=== PATIENT | female | born 1940 | race Caucasian/White ===

== ENCOUNTER 2016-11-30 18:10 | Inpatient (IN) | payer MEDICARE ==
[~2016-11-30] VITALS: Ht 157.5 cm; Wt 48.6 kg
--- NOTE | ~2016-11-30 | HEMODYNAMI ---
PATIENT:SOPHIA MANNING MEDICAL RECORD: [id number] : 36 LOCATION:[facility] D.[id number] ADMISSION DATE: 12/01/16 Generatedon:12/04/201612:50 Patient name: SOPHIA MANNING Patient #: [id number] SSN: : 1940 Date of study: 12/04/2016 Page: Of Hemodynamic Procedure Report Patient Data Patient Demographics Procedure consent was obtained First Name: SOPHIA Gender: Female Last Name: NIGEL : 1940 [facility] Initial: J Age: 76 year(s) Patient #: [id number] Race: Unknown Additional ID: [id number] Contact details Address: [address] [place] [address] State: [place] City: [facility] [place] Zip code: [address] Past Medical History Allergies Allergen Reaction Date Comments Reported Other allergy 12/03/2016 amoxicillin, PCN Admission Admission Data Admission Date: 12/01/2016 Admission Time: 13:31 Room #: [facility] Lab Results Lab Result Date: 12/04/2016 Lab Result Time: 0:00 Biochemistry Name Units Result Min Max Creatinine mg/dl 1.1 --(--*-)-- 0.6 1.3 CBC Name Units Result Min Max Hemoglobin g/dl 13 -*(----)-- 13.5 17.5 Procedure Procedure Types Cath Procedure PCI Procedure Coronary Stent Initial Miscellaneous Procedures Moderate Sedation up to 15 minutes Procedure Description Procedure Date Procedure Date: 12/04/2016 Procedure Start Time: 12:32 Procedure End Time: 12:46 Procedure Staff Name Function Bev Quiles RT Monitor Bonilla Quinones RT Scrub Reginald Fernandez RN Nurse Darien Handley MD Performing Physician Claudia Kam RT Scrub Procedure Data Cath Procedure Fluoroscopy Diagnostic fluoroscopy Total fluoroscopy Time: 2.9 time: 2.9 min min Diagnostic fluoroscopy Total fluoroscopy dose: 85 dose: 85 mGy mGy Contrast Material Contrast Material Type Amount (ml) Isovue 300 62 Entry Location Entry Primary Successful Side Size Upsize Upsize Entry Closure [place] ccessful Closure Location (Fr) 1 (Fr) 2 (Fr) Remarks Device Remarks Femoral Left 6 Fr Mechanical artery Short Compression Estimated blood loss: 5 ml Procedure Complications No complications Procedure Medications Medication Administration Route Dosage Oxygen NC 2 l/min Heparin Flush Bag added to field 2 bags (1000units/500ml NS) 0.9% NaCl I.V. 100 ml/hr Plavix P.O. 75 mg Fentanyl I.V. 50 mcg Versed I.V. 1 mg Heparin Bolus I.V. 4000 units Fentanyl I.V. 50 mcg Versed I.V. 1 mg Hemodynamics Rest HGB: 13 (g/dl) Heart Rate: 74 (bpm) Snapshots Pre Cath Intra NCS Post Cath Vital Signs Time Heart Resp SPO2 etCO2 MY0lvwa NIBP (mmHg) Rhythm Pain Sedation Rate (ipm) (%) (mmHg) (mmHg) Status Level (bpm) 11:53:45 68 22 96 0 0 150/70(108) NSR 0 (11) 10(A) , No pain 11:58:25 73 16 96 0 0 134/68(91) NSR 0 (11) 10(A) , No pain 12:03:00 72 21 92 0 0 142/77(114) NSR 0 (11) 10(A) , No pain 12:07:34 69 19 94 0 0 140/87(107) NSR 0 (11) 10(A) , No pain 12:12:11 67 19 97 0 0 142/73(105) NSR 0 (11) 10(A) , No pain 12:16:50 67 18 98 0 0 138/66(106) NSR 0 (11) 10(A) , No pain 12:21:24 68 21 95 0 0 134/82(100) NSR 0 (11) 10(A) , No pain 12:26:00 62 19 95 0 0 148/65(111) NSR 0 (11) 10(A) , No pain 12:30:41 66 21 98 0 0 135/58(85) NSR 0 (11) 9(A) , No pain 12:35:13 70 20 94 0 0 140/82(112) NSR 0 (11) 9(A) , No pain 12:39:50 66 17 96 0 0 151/71(126) NSR 0 (11) 9(A) , No pain 12:44:29 66 19 97 0 0 141/74(100) NSR 0 (11) 9(A) , No pain Medications Time Medication Route Dose Verified Delivered Reason Notes Effectiveness by by 11:57:32 Oxygen NC 2 Reginald Reginald Per physician l/min Jim Fernandez RN RN 11:57:44 Heparin Flush added 2 Reginald Reginald used for Bag to bags Jim Fernandez RN procedure (1000units/500ml field RN NS) 11:58:06 0.9% NaCl I.V. 100 Reginald Reginald Per physician ml/hr Jim Fernandez RN RN 11:58:58 Plavix P.O. 75 mg Reginald Reginald for Jim Fernandez RN antiplatelet RN therapy 12:27:30 Fentanyl I.V. 50 Reginald Reginald for sedation mcg Jim Fernandez RN RN 12:27:37 Versed I.V. 1 mg Reginald Reginald for sedation Jim Fernandez RN RN 12:33:57 Heparin Bolus I.V. 4000 Reginald Reginald for units Jim Fernandez RN anticoagulation RN 12:34:01 Fentanyl I.V. 50 Reginald Reginald for sedation mcg Jim Fernandez RN RN 12:34:06 Versed I.V. 1 mg Reginald Reginald for sedation Jim Fernandez RN guidance adviser Log Time Note 11:34:36 Bonilla Quinones RT(R) sent for patient. Start room use. 11:34:37 Time tracking: Regular hours 11:34:41 Plan of Care:Hemodynamics will remain stable., Cardiac rhythm will remain stable., Comfort level will be maintained., Respiratory function will remain adequate., Patient/ family verbilizes understanding of procedure., Procedure tolerated without complication., Recovers from procedure without complications.. 11:44:25 Lab Result : Hemoglobin 13 g/dl 11:44:25 Lab Result : Creatinine 1.1 mg/dl 11:46:20 Patient received from Pre/Post Procedure Room to CCL 1 Alert and oriented. Tansferred to table in Supine position. 11:46:21 Warm blankets applied, and patricia hugger turned on for patient comfort. 11:46:22 Correct patient and procedure confirmed by team. 11:46:23 Signed procedure consent form obtained from patient. 11:46:26 ECG and BP/O2 sat monitors applied to patient. 11:46:27 Full Disclosure recording started 11:46:55 H&P Date Dictated: 12/02/2016 Within 30 days and on chart.. 11:46:57 Pre-procedure instructions explained to patient. 11:46:58 Pre-op teaching completed and patient verbalized understanding. 11:46:59 Family in waiting room. 11:47:00 Patient NPO since Midnight. 11:52:50 Vital chart was started 11:52:54 Rhythm: sinus rhythm 11:54:08 Is the patient allergic to Iodine/contrast media? No. 11:54:09 Is patient on blood thinner?Yes 11:54:11 ACC The patient was administered the following blood thiners within the last 24 hours: ACCAspirin, ACCPlavix 11:54:15 Patient diabetic? No. 11:54:19 Previous problem with sedation/anesthesia? No ? 11:54:20 Snore? Yes 11:54:21 Sleep apnea? No 11:54:22 Deviated septum? No 11:54:23 Opens mouth fully? Yes 11:54:24 Sticks out tongue? Yes 11:54:26 Airway obstruction? No ? 11:54:29 Dentures? No ? 11:54:38 Pre procedure: left dorsailis pedis pulse 2+ Normal; easily identifiable; not easily obliterated 11:54:40 Patient pain scale 0/10 ?. 11:54:51 IV patent on arrival in right hand with 0.9% NaCl at O. 11:54:56 Lab results completed and on chart. 11:54:59 Left groin area was prepped with chlora-prep and draped in sterile fashion 11:55:00 Sharps counted by scrub and verified by R.N. 11:55:00 Alarms reviewed by R. N. 11:55:09 Use device set Femoral PCI 11:55:10 Acist Syringe opened to sterile field. 11:55:11 Bag Decanter opened to sterile field. 11:55:11 Acist Hand Control opened to sterile field. 11:55:12 St Yair 260cm J .035 wire opened to sterile field. 11:55:12 Terumo 6Fr [place] Sheath opened to sterile field. 11:55:12 Medline Cath Pack opened to sterile field. 11:55:13 Acist Manifold opened to sterile field. 11:55:13 Merit BasixCompak Inflation Kit opened to sterile field. 11:55:14 Tegaderm 4 x 4 opened to sterile field. 11:55:21 Neal Whisper J 300cm 0.014 guide wire opened to sterile field. 11:57:32 Oxygen 2 l/min NC was administered by Reginald Fernandez RN; Per physician; 11:57:44 Heparin Flush Bag (1000units/500ml NS) 2 bags added to field was administered by Reginald Fernandez RN; used for procedure; 11:58:06 0.9% NaCl 100 ml/hr I.V. was administered by Reginald Fernandez RN; Per physician; 11:58:16 Baseline sample Acquired. 11:58:58 Plavix 75 mg P.O. was administered by Reginald Fernandez RN; for antiplatelet therapy; 11:59:38 Physician paged 12:01:41 Zero performed for pressure channel P1 12::47 Zero performed for pressure channel P1 12:27:01 Final Timeout: patient, procedure, and site verified with staff and physician. All members of the team are in agreement. 12:27:04 Left groin site verified by team. 12:27:08 Physical assessment completed. ASA score P 2 - A patient with mild systemic disease as per Darien Handley MD. 12:27:11 Sedation plan: IV Moderate Sedation Versed, Fentanyl 12:27:30 Fentanyl 50 mcg I.V. was administered by Reginald Fernandez RN; for sedation; 12:27:37 Versed 1 mg I.V. was administered by Reginald Fernandez RN; for sedation; 12:32:22 Procedure started. 12:32:26 Local anesthetic to left femerol artery with Lidocaine 2% by Darien Handley MD.INITIAL ACCESS ONLY 12:33:28 A 6 Fr Short sheath was inserted into the Left Femoral artery 12:33:39 Cordis 6FR XBLAD 3.5 guide catheter opened to sterile field. 12:33:46 6 Fr XBLAD 3.5 guide catheter was inserted over the wire 12:33:57 Heparin Bolus 4000 units I.V. was administered by Reginald Fernandez RN; for anticoagulation; 12:34:01 Fentanyl 50 mcg I.V. was administered by Reginald Fernandez RN; for sedation; 12:34:06 Versed 1 mg I.V. was administered by Reginald Fernandez RN; for sedation; 12:35:14 Whisper wire advanced. 12:38:55 Inflation Number: 1 A Gunner OTW 2.25 x 15 stent was prepped and advanced across the Mid LAD. The stent was deployed at 11 FABIO for 0:10 (min:sec). 12:40:16 Wire removed. 12:40:16 Stent catheter was removed intact over wire. 12:40:17 Guide catheter removed. 12:40:23 Sheath removed intact; hemostasis achieved with Mechanical Compression to the Left Femoral artery. 12:40:25 Procedure ended.(Physican Out) 12:41:42 Fluoroscopy time 02.90 minutes. 12::46 Fluoroscopy dose: 85 mGy 12::46 Flurop Dose total: 85 12:41:54 Contrast amount:Isovue 300 62ml. 12:41:56 Sharps counted by scrub and verified by R.N. 12:41:57 Insertion/operative site no bleeding no hematoma. 12:42:01 Post-op/insertion site Left Femoral artery dressed using a 4 x 4 and Tegaderm. 12:42:05 Post left femerol artery:stable, clean and dry 12:42:55 Post Procedure Pulses reassessed and unchanged 12:42:58 Post-procedure physical assessment completed. ASA score P 2 - A patient with mild systemic disease as per Darien Handley MD. 12:43:00 Post procedure rhythm: unchanged. 12:43:03 Estimated blood loss: 5 ml 12:43:05 Patient needs reinforcement of post procedure teaching. 12:43:05 Post procedure instruction explained to patient.Patient verbalizes understanding. 12:43:18 Procedure type changed to Cath procedure, PCI procedure, Coronary Stent Initial, Miscellaneous Procedures, Moderate Sedation up to 15 minutes 12:43:23 Procedure Complication : No complications 12:43:30 Cordis 6Fr Exoseal opened to sterile field. 12:43:34 See physician's report for complete and final results. 12:44:10 Procedure and supply charges have been captured, reviewed, submitted and are correct. 12:44:17 Vital chart was stopped 12:44:20 Report given to PCU. 12:44:24 Patient transfered to PCU with Bed. 12:46:00 Full Disclosure recording stopped 12:46:00 Procedure ended. 12:46:03 End room use (Document Last) 12:49:09 Post left femerol artery:bleeding 12:49:29 Femstop placed over the left femerol artery at 160 mmHg. Hemostasis achieved. Intervention Summary Intervention Notes Time ActionType Lesion and Equipment Action# Pressure Duration Attributes Used 12:38:55 Place stent Mid LAD Kingman OTW 1 11 00:10 2.25 x 15 stent Device Usage Item Name Manufacture Quantity Catalog Hospital Part Current Minimal Lot# / Number Charge Number Stock Stock Serial# Code Acist Acist 1 [id number] 609254 [id number] 20 Syringe [employer] Acist Hand Acist 1 41209 335854 698865 977283 5 [employer] Bag Microtek 1 2002S 711009 05157 587982 5 [employer] Medline Cardinal 1 [id number] 982561 36988 080176 5 Cath Pack Health Terumo 6Fr Terumo 1 [id number] 398280 500415 727844 [address] St Yair 1 444377 026111 725434 314690 30 260cm J .035 wire Merit Merit 1 [id number] 167622 362210 159937 15 BasixCompak Medical Inflation Kit Acist Acist 1 78042 975292 374509 436185 5 [employer] Tegaderm 4 3M 1 1626W 611356 445758 895674 5 x 4 Neal Neal 1 [id number] 271357 787766 059167 5 Whisper J Vascular 300cm 0.014 guide wire Cordis 6FR Cardinal 1 [id number] 816111 180265 617892 10 XBLAD 3.5 Health guide catheter Kingman OTW Medtronic 1 [id number] 979804 62917 338936 5 [id number] 2.25 x 15 stent Cordis 6Fr Cardinal 1 [id number] 892540 255254 484100 10 [employer] Signature Audit Alsey Stage Time Signature Unsigned Intra-Procedure 12/04/2016 Bev Pablo Counts 12:46:16 PM Counts RT(R) RT(R) 12/04/2016 12:48:48 PM Intra-Procedure 12/04/2016 Bev 12:50:15 PM Counts RT(R) Signatures Monitor : Bev Signature : Counts RT Date : Time : [facility] [address] [place] [address]
--- NOTE | ~2016-11-30 | HEMODYNAMI ---
PATIENT:SOPHIA MANNING MEDICAL RECORD: [id number] : 38 [facility]iet[place] [id number] ADMISSION DATE: 12/01/16 Generatedon:12/03/201611:47 Patient name: SOPHIA MANNING Patient #: [id number] SSN: : 1940 Date of study: 12/03/2016 Page: Of Hemodynamic Procedure Report Patient Data Patient Demographics Procedure consent was obtained First Name: SOPHIA Gender: Female Last Name: NIGEL : 1940 [facility] Initial: Gypsy Age: 76 year(s) Patient #: [id number] Race: Unknown Additional ID: [id number] Contact details Address: [address] [place] [address] State: [place] City: [facility] Zip code: [address] Past Medical History Allergies Allergen Reaction Date Comments Reported Other allergy 12/03/2016 amoxicillin, PCN Admission Admission Data Admission Date: 12/01/2016 Admission Time: 13:31 Room #: D[facility] Lab Results Lab Result Date: 12/03/2016 Lab Result Time: 5:00 Biochemistry Name Units Result Min Max BUN mg/dl 15 --(--*-)-- 7 18 Creatinine mg/dl 0.8 --(-*--)-- 0.6 1.3 CBC Name Units Result Min Max Hematocrit % 36.8 *-(----)-- 42 54 Hemoglobin g/dl 12.7 -*(----)-- 13.5 17.5 Procedure Procedure Types Cath Procedure Diagnostic Procedure C [facility] w/Coronaries PCI Procedure Coronary Stent Initial Miscellaneous Procedures Moderate Sedation up to 30 minutes Procedure Description Procedure Date Procedure Date: 12/03/2016 Procedure Start Time: 11:31 Procedure End Time: 11:45 Procedure Staff Name Function Darien Handley MD Performing Physician Lizzie Phillip RT Scrub Matty Bush RN Nurse Polo Tyler RT Monitor Procedure Data Cath Procedure Fluoroscopy Diagnostic fluoroscopy Total fluoroscopy Time: 2.1 time: 2.1 min min Diagnostic fluoroscopy Total fluoroscopy dose: 165 dose: 165 mGy mGy Contrast Material Contrast Material Type Amount (ml) Isovue 300 55 Entry Location Entry Primary Successful Side Size Upsize Upsize Entry Closure Succes sful Closure Location (Fr) 1 (Fr) 2 (Fr) Remarks Device Remarks Femoral Right 5 Fr 6 Fr Exoseal artery Short Estimated blood loss: 10 ml Diagnostic catheters Device Type Used For End Catheter Placement Cordis 5Fr Pigtail Procedure Catheter (MP) Cordis 5Fr JL 4.0 Procedure Catheter (MP) Cordis 5Fr 3DRC Catheter Procedure (MP) Procedure Complications No complications Procedure Medications Medication Administration Route Dosage Oxygen NC 2 l/min Lidocaine 2% added to field 20 Heparin Flush Bag added to field 2 bags (1000units/500ml NS) 0.9% NaCl I.V. 100 ml/hr Versed I.V. 1 mg Fentanyl I.V. 50 mcg Heparin Bolus I.V. 4000 units Integrilin (Bolus I.V. 4.5 ml 2mg/ml) Versed I.V. 0.5 mg Fentanyl I.V. 25 mcg Plavix P.O. 600 mg Hemodynamics Rest HGB: 12.7 (g/dl) Heart Rate: 67 (bpm) Pressure Samples Time Site Value (mmHg) Purpose Heart Use Rate(bpm) 11:33 AO 150/60(99) Snapshot 66 Snapshots Pre Cath Intra NCS Post Cath Vital Signs Time Heart Resp SPO2 NIBP (mmHg) Rhythm Pain Sedation Rate (ipm) (%) Status Level (bpm) 11:12:20 67 18 93 159/89(129) NSR 0 (11) 10(A) , No pain 11:17:31 64 16 98 135/82(109) NSR 0 (11) 10(A) , No pain 11:26:34 65 18 98 132/90(107) NSR 0 (11) 9(A) , No pain 11:34:56 62 14 98 166/65(134) NSR 0 (11) 9(A) , No pain 11:43:22 62 15 99 177/77(158) NSR 0 (11) 10(A) , No pain Medications Time Medication Route Dose Verified Delivered Reason Notes Effectiveness by by 10:58:31 Oxygen NC 2 Darien Starr used for l/min Ender Bush poker dealer 10:58:38 Lidocaine 2% added 20ml Darien Buckleyie used for to vial Ender Bush RN procedure field 10:58:44 Heparin Flush added 2 Darien Buffie used for Bag to bags Ender Bush RN procedure (1000units/500ml field NS) 10:58:53 0.9% NaCl I.V. 100 Darien Starr Per physician ml/hr Ender Bush RN 11:22:35 Versed I.V. 1 mg Darien Starr for sedation Ender Bush RN 11:22:41 Fentanyl I.V. 50 Darien Buckleyie for sedation mcg Ender Bush RN 11:29:03 Versed I.V. 0.5 Darien Starr for sedation mg Ender Bush RN 11:29:09 Fentanyl I.V. 25 Darien Starr for sedation mcg Ender Bush RN 11:34:42 Heparin Bolus I.V. 4000 Darien Starr for verifi ed units Ender Bush RN anticoagulation with dr handley 11:36:06 Integrilin I.V. 4.5 Darien Starr for wasted (Bolus 2mg/ml) ml Ender Bush RN antiplatelet 5.5 ml therapy of vial 11:44:23 Plavix P.O. 600 Draien Starr for mg Ender Bush RN antiplatelet therapy Procedure Log Time Note 10:40:07 Informed consent obtained and on chart 10:40:42 Diagnostic Cath status Elective 10:40:43 Matty Bush RN sent for patient. Start room use. 10:40:44 Time tracking: Regular hours 10:40:47 Plan of Care:Hemodynamics will remain stable., Cardiac rhythm will remain stable., Comfort level will be maintained., Respiratory function will remain adequate., Patient/ family verbilizes understanding of procedure., Procedure tolerated without complication., Recovers from procedure without complications.. 10:49:25 Lab Result : Hemoglobin 12.7 g/dl 10:49:25 Lab Result : Hematocrit 36.8 % 10:49:25 Lab Result : BUN 15 mg/dl 10:49:25 Lab Result : Creatinine 0.8 mg/dl 10:49:41 H&P Date Dictated: 12/02/2016 Within 30 days and on chart.. 10:51:28 Patient received from Med/Surg to CCL 2 Alert and oriented. Tansferred to table in Supine position. 10:51:29 Warm blankets applied, and patricia hugger turned on for patient comfort. 10:51:30 Correct patient and procedure confirmed by team. 10:51:30 ECG and BP/O2 sat monitors applied to patient. 10:58:31 Oxygen 2 l/min NC was administered by Matty Bush RN; used for procedure; 10:58:38 Lidocaine 2% 20ml vial added to field was administered by Matty Bush RN; used for procedure; 10:58:44 Heparin Flush Bag (1000units/500ml NS) 2 bags added to field was administered by Matty Bush RN; used for procedure; 10:58:53 0.9% NaCl 100 ml/hr I.V. was administered by Matty Bush RN; Per physician; 10:58:57 Vital chart was started 10:59:05 Vital chart was stopped 11:07:44 Baseline sample Acquired. 11:07:48 Rhythm: sinus rhythm 11:07:55 Pre-procedure instructions explained to patient. 11:07:56 Pre-op teaching completed and patient verbalized understanding. 11:07:57 Family in patients room. 11:07:58 Patient NPO since Midnight. 11:08:26 Patient allergic to Other allergyamoxicillin, PCN 11:08:28 Is the patient allergic to Iodine/contrast media? No. 11:08:29 Is patient on blood thinner?No 11:08:30 Patient diabetic? No. 11:08:42 Previous problem with sedation/anesthesia? No ? 11:08:43 Snore? Yes 11:08:44 Sleep apnea? No 11:08:45 Deviated septum? No 11:08:46 Opens mouth fully? Yes 11:08:50 Sticks out tongue? Yes 11:08:52 Airway obstruction? No ? 11:08:54 Dentures? No ? 11:08:58 Pre procedure: right dorsailis pedis pulse 2+ Normal; easily identifiable; not easily obliterated 11:09:01 Patient pain scale 0/10 ?. 11:09:07 IV patent on arrival in right wrist with 0.9% NaCl at O. 11:09:09 Lab results completed and on chart. 11:09:11 Right groin area was prepped with chlora-prep and draped in sterile fashion 11:09:12 Alarms reviewed by RArtis NArtis 11:09:12 Sharps counted by scrub and verified by R.N. 11:09:15 Use device set Femoral Dx 11::16 Tegaderm 4 x 4 opened to sterile field. 11::18 Acist Hand Control opened to sterile field. 11::18 Acist Manifold opened to sterile field. 11::19 Acist Syringe opened to sterile field. 11:: Bag Decanter opened to sterile field. :: Medline Cath Pack opened to sterile field. 11:: Terumo 5Fr [place] Sheath opened to sterile field. 11:: St Yair 260cm J .035 wire opened to sterile field. 11::23 Diagnostic Infinity 5Fr Multipack catheter opened to sterile field. 11:10:06 Baseline sample Acquired. 11:12:40 Zero performed for pressure channel P1 11::58 Physician arrived 11::58 --------ALL STOP TIME OUT------ 11::59 Final Timeout: patient, procedure, and site verified with staff and physician. All members of the team are in agreement. 11::02 Right groin site verified by team. 11:22:05 Physical assessment completed. ASA score P 2 - A patient with mild systemic disease as per Darien Handley MD. 11::07 Sedation plan: IV Moderate Sedation Versed, Fentanyl 11::35 Versed 1 mg I.V. was administered by Matty Bush RN; for sedation; 11::41 Fentanyl 50 mcg I.V. was administered by Matty Bush RN; for sedation; ::03 Versed 0.5 mg I.V. was administered by Matty Bush RN; for sedation; ::09 Fentanyl 25 mcg I.V. was administered by Matty Bush RN; for sedation; 11:31:27 Procedure started. 11:31:27 Full Disclosure recording started 11::30 Local anesthetic to right femoral artery with Lidocaine 2% by Darien Handley MD.INITIAL ACCESS ONLY 11:31:39 A 5 Fr sheath was inserted into the Right Femoral artery 11:32:14 A Cordis 5Fr Pigtail Catheter (MP) was advanced over the wire and used for Procedure. 11:32:28 LV gram done using RADFORD 11:32:30 Injector settings: Ml/sec: 10, Volume: 20, 11:32:37 EF : 60 % 11:32:41 Catheter exchanged over wire. 11:32:45 A Cordis 5Fr JL 4.0 Catheter (MP) was advanced over the wire and used for Procedure. 11:33:15 LCA angiography performed. 11:33:54 Terumo 6Fr [place] Sheath opened to sterile field. 11:33:54 Neal Whisper J 300cm 0.014 guide wire opened to sterile field. 11:33:55 Inofile BasixCompak Inflation Kit opened to sterile field. 11:34:17 Catheter exchanged over wire. 11:34:23 A Cordis 5Fr 3DRC Catheter (MP) was advanced over the wire and used for Procedure. 11:34:42 Heparin Bolus 4000 units I.V. was administered by Matty Bush RN; for anticoagulation; verified with dr handley 11:35:04 RCA angiography performed. 11:35:22 Catheter removed. 11:36:06 Integrilin (Bolus 2mg/ml) 4.5 ml I.V. was administered by Matty Bush RN; for antiplatelet therapy; wasted 5.5 ml of vial 11:36:59 Medtronic Launcher 6Fr AR 2.0 guide catheter opened to sterile field. 11:37:09 Sheath upsized to a 6 Fr Short. 11:37:14 6 Fr AR 2 guide catheter was inserted over the wire 11:37:56 WHISPER wire advanced. 11:38:48 Wire advanced across lesion. 11:39:09 Inflation Number: 1 A [place] OTW 2.5 x 12 stent was prepped and advanced across the Mid RCA. The stent was deployed at 19 FABIO for 0:10 (min:sec). 11:39:11 Stent catheter was removed intact over wire. 11:39:11 Wire removed. 11:39:12 Guide catheter removed. 11:39:59 Cordis 6Fr Exoseal opened to sterile field. 11:40:52 Sheath removed intact; hemostasis achieved with Exoseal to the Right Femoral artery. 11:40:53 Procedure ended.(Physican Out) 11:42:05 Fluoroscopy time 02.10 minutes. 11:42:08 Fluoroscopy dose: 165 mGy 11:42:08 Flurop Dose total: 165 11:42:10 Contrast amount:Isovue 300 55ml. 11:42:11 Sharps counted by scrub and verified by R.N. 11:42:16 Insertion/operative site no bleeding no hematoma. 11:42:18 Post-op/insertion site Right Femoral artery dressed using a 4 x 4 and Tegaderm. 11:42:21 Post right femoral artery:stable, soft, clean and dry 11:42:22 Post Procedure Pulses reassessed and unchanged 11:42:24 Post-procedure physical assessment completed. ASA score P 2 - A patient with mild systemic disease as per Darien Handley MD. 11:42:27 Post procedure rhythm: unchanged. 11:42:30 Estimated blood loss: 10 ml 11:42:31 Post procedure instruction explained to patient.Patient verbalizes understanding. 11:44:23 Plavix 600 mg P.O. was administered by Matty Bush RN; for antiplatelet therapy; 11:44:24 Patient needs reinforcement of post procedure teaching. 11:44:46 Procedure type changed to Cath procedure, Diagnostic procedure, LHC, LHC w/Coronaries, PCI procedure, Coronary Stent Initial, Miscellaneous Procedures, Moderate Sedation up to 30 minutes 11:45:22 Procedure and supply charges have been captured, reviewed, submitted and are correct. 11:45:24 Procedure Complication : No complications 11:45:26 See physician's report for complete and final results. 11:45:28 Report given to PCU. 11:45:30 Patient transfered to PCU with Stretcher. 11:45:32 Procedure ended. 11:45:32 Full Disclosure recording stopped 11:46:27 End room use (Document Last) Intervention Summary Intervention Notes Time ActionType Lesion and Equipment Action# Pressure Duration Attributes Used 11:39:09 Place stent Mid RCA [place] OTW 1 19 00:10 2.5 x 12 stent Device Usage Item Name Manufacture Quantity Catalog Hospital Part Current Minimal Lot# / Number Charge Number Stock Stock Serial# Code Tegaderm 4 3M 1 [id number] [id number] 745168 5 x 4 Acist Hand Acist 1 43056 562052 675447 234086 5 Control Medical Systems Inc Acist Acist 1 02503 295167 042364 781800 5 Manifold Medical Systems Inc Acist Acist 1 2201756 838009 917252 431087 20 Syringe Medical Systems Inc Bag Microtek 1 2001S 115371 84771 120189 5 Decanter Medical Inc. Medline Cardinal 1 [id number] 484960 99148 048341 5 Cath Pack Health Terumo 5Fr Terumo 1 [id number] 841486 260290 396709 [address] Yair 1 341841 875186 965469 701223 30 260cm J .035 wire Diagnostic Cardinal 1 [id number] 303018 89000 064890 30 Infinity Health 5Fr Multipack catheter Cordis 5Fr Cardinal 1 301953 5 Pigtail Health Catheter (MP) Cordis 5Fr Cardinal 1 757251 5 JL 4.0 Health Catheter (MP) Terumo 6Fr Terumo 1 [id number] 729206 799067 868100 40 [place] Sheath Neal Neal 1 [id number] 255145 529025 844567 5 Whisper J Vascular 300cm 0.014 guide wire Merit Merit 1 [id number] 113856 794135 910044 15 [facility]arcelDelivery[facility] Medical Inflation Kit Cordis 5Fr Cardinal 1 614986 5 3DRC Health Catheter (MP) Medtronic Medtronic 1 [id number] 710698 19087 287104 1 Launcher 6Fr [place] 2.0 guide catheter [place] OTW Medtronic 1 [id number] 305482 17228 135517 5 [id number] 2.5 x 12 stent Cordis 6Fr Cardinal 1 [id number] 585103 687750 756319 10 [facility] FasterPants Signature Audit [place] Stage Time Signature Unsigned Intra-Procedure 12/03/2016 Polo Tyler 11:47:24 AM RT(R) Signatures Monitor : Polo Tyler RT Signature : Date : Time : [facility] [address], [place] [address]
[~2016-11-30 18:10] MED LIST: AZOR 10-20 MG T1 TAB PO; BAYER CHEWABLE81 MG PO; BYSTOLIC2.5 MG
[2016-11-30 18:34] LABS: BASOPHILS 0.2 % (0-2); EOSINOPHILS 4.2 % (0-7); HEMATOCRIT 38.2 % (36.0-48.0); HEMOGLOBIN 13.4 g/dL (12-16); IMMATURE GRANULOCYTES 0.2 % (0-5); MCH 30.7 pg (26.0-34.0); MCHC 35.1 g/dL (31.0-37.0); MCV 87.6 fL (80.0-100.0); MEAN PLATELET VOLUME 10.3 fL (7.4-10.4); MONOCYTES 13.8 % (2-11); NEUTROPHILS 54.6 % (40-80); PLATELET COUNT 225 10x3/uL (130-400); RBC 4.36 10x6/uL (4.00-5.40); RDW 13.5 % (11.5-14.5); WBC 6.3 10x3/uL (4.8-10.8)
[2016-11-30 18:42] LABS: APTT 22.2 SECONDS (22.8-39.4); INR 0.96 (0.85-1.17); PROTIME 12.6 SECONDS (11.6-15.0)
[2016-11-30 19:24] LABS: ALBUMIN 3.8 g/dL (3.4-5.0); ANION GAP 10.9 mmol/L (8-16); BILIRUBIN - TOTAL 0.59 mg/dL (0.2-1.3); CALCIUM 9.7 mg/dL (8.5-10.1); CARBON DIOXIDE 29.3 mmol/L (21.0-32.0); CREATININE - SERUM 0.9 mg/dL (0.6-1.3); PROTEIN - SERUM 8.2 g/dL (6.4-8.2)
[2016-11-30 19:28] LABS: POTASSIUM - SERUM 4.2 mmol/L (3.5-5.1)
--- NOTE | 2016-11-30 21:50 | NUR ---
REC'D PATIENT FROM ER WITH FAMILY AT BEDSIDE. PATIENT HAS NO VISIBLE SIGNS OF DISTRESS. BED IN LOWEST POSITION AND CALL LIGHT WITHIN REACH. ENCOURAGED THE PATIENT TO CALL IF SHE HAS NEEDS.
--- NOTE | 2016-11-30 22:30 | NUR ---
PATIENT AND FAMILY DO NOT KNOW THE MEDICATIONS THAT THE PATIENT IS CURRENTLY TAKING. THE SON AND [id number] WILL BRING A LIST OF MEDS IN THE MORNING.
[2016-11-30 22:41] VITALS: BP 168/78; Ht 157.5 cm; Wt 48.6 kg
--- NOTE | 2016-11-30 22:41 | NUR ---
TELE 88 SR
[2016-12-01] VITALS: BP 152/73
[2016-12-01 04:00] VITALS: BP 129/55
[2016-12-01 07:44] LABS: BASOPHILS 0.1 % (0-2); EOSINOPHILS 0 % (0-7); HEMATOCRIT 31.9 % (36.0-48.0); HEMOGLOBIN 11.3 g/dL (12-16); IMMATURE GRANULOCYTES 0.1 % (0-5); LYMPHOCYTES 17.8 % (15-50); MCH 30.7 pg (26.0-34.0); MCHC 35.4 g/dL (31.0-37.0); MCV 86.7 fL (80.0-100.0); MEAN PLATELET VOLUME 10.1 fL (7.4-10.4); MONOCYTES 8.4 % (2-11); NEUTROPHILS 73.6 % (40-80); PLATELET COUNT 180 10x3/uL (130-400); RBC 3.68 10x6/uL (4.00-5.40); RDW 13.6 % (11.5-14.5)
[2016-12-01 08:02] LABS: BILIRUBIN - TOTAL 0.59 mg/dL (0.2-1.3); CALCIUM 8.1 mg/dL (8.5-10.1); CARBON DIOXIDE 26.9 mmol/L (21.0-32.0); PROTEIN - SERUM 6.4 g/dL (6.4-8.2)
[2016-12-01 08:05] LABS: ANION GAP 11.5 mmol/L (8-16); POTASSIUM - SERUM 3.4 mmol/L (3.5-5.1)
--- NOTE | 2016-12-01 08:06 | NUR ---
LYING IN BED WITH RESPIRATIONS EVEN AND NON LABORED. DAUGHTER AT BEDSIDE. CALL LIGHT IN REACH, DENIES NEEDS AT PRESENT TIME. WILL CONTINUE [facility] PLAN OF CARE.
[2016-12-01 09:26] VITALS: BP 136/58
[2016-12-01 12:47] VITALS: BP 168/72
[2016-12-01 16:55] VITALS: BP 165/66
[2016-12-01 19:00] VITALS: BP 204/82
[2016-12-01] MEDS ORDERED: BYSTOLIC10 MG PO (20:28)
[2016-12-01] MEDS ORDERED: BETAPACE 80 MG80 MG PO (20:29)
[2016-12-01] MEDS ORDERED: ZESTORETIC 20-1 EACH PO (20:29)
[2016-12-01] MEDS ORDERED: CATAPRES0.1 MG PO (20:30)
[2016-12-01] MEDS ORDERED: ASPIRIN81 MG PO (20:31)
[2016-12-01] MEDS ORDERED: NITROSTAT0.4 MG SL (20:31)
--- NOTE | 2016-12-01 20:41 | NUR ---
VIJAYA JARAMILLO IN REGARDS TO PATIENT'S BP AND HOME MEDS
[2016-12-02] VITALS (7 sets, daily range): BP systolic 142–210; BP diastolic 55–90
[2016-12-02 06:05] LABS: BASOPHILS 0.3 % (0-2); EOSINOPHILS 4.5 % (0-7); HEMATOCRIT 34.7 % (36.0-48.0); IMMATURE GRANULOCYTES 0.1 % (0-5); LYMPHOCYTES 24.4 % (15-50); MCH 30.4 pg (26.0-34.0); MCHC 34.6 g/dL (31.0-37.0); MCV 87.8 fL (80.0-100.0); MEAN PLATELET VOLUME 10.6 fL (7.4-10.4); MONOCYTES 11.7 % (2-11); PLATELET COUNT 181 10x3/uL (130-400); RBC 3.95 10x6/uL (4.00-5.40); RDW 13.5 % (11.5-14.5); WBC 6.9 10x3/uL (4.8-10.8)
[2016-12-02 06:32] LABS: ANION GAP 11.9 mmol/L (8-16); BILIRUBIN - TOTAL 0.72 mg/dL (0.2-1.3); CALCIUM 8.6 mg/dL (8.5-10.1); CARBON DIOXIDE 28.7 mmol/L (21.0-32.0); CREATININE - SERUM 0.9 mg/dL (0.6-1.3); POTASSIUM - SERUM 3.6 mmol/L (3.5-5.1); PROTEIN - SERUM 6.5 g/dL (6.4-8.2)
--- NOTE | 2016-12-02 10:30 | NUR ---
Patient Name: SOPHIA MANNING Admission Status: ER Accout number: [id number] Admission Date: 12-01-2016 : 1940 Admission Diagnosis:HYPERTENSIVE EMERGENCY Attending: AWA ALMAGUER Current LOS: 1 Anticipated DC Date: 12-05-2016 Planned Disposition: Home Primary Insurance: MEDICARE A & B Discharge Planning Comments: CM MET WITH PATIENT REGARDING D/C NEEDS AND PLANS. PATIENT STATED SHE LIVES ALONE AND HER SON LIVES 5 HOMES DOWN FROM HER. PATIENT STATED SHE HAS 2 STEPS W/RAILS TO ENTER HER HOME AND NO STAIRS INSIDE. PATIENT STATED SHE IS INDEPENDENT WITH HER CARE AND HAS A WALKER, CANE, AND SHOWER CHAIR AT HOME IF NEEDED. PATIENTS PCP IS DR. GEORGE AND SHE USES [facility] FOR HER PHARMACY. PATIENT DOES NOT WANT HOME HEALTH. CM WILL CONTINUE TO FOLLOW PATIENT WITH D/C NEEDS AND PLANS. PCP DR. GEORGE [facility] [phone] CARLENE (SON) [phone] Mirror Painter: Deloris Silva Is the patient Alert and Oriented? Yes 0 * How many steps to enter\exit or inside your home? 2 w/rails 0 * PCP DR. GEORGE 0 * Pharmacy [facility] 0 * Preadmission Environment Home Alone 0 * ADLs Independent 0 * Equipment Cane Shower Chair Walker 0 * List name and contact numbers for known caregivers / representatives who currently or will assist patient after discharge: CARLENE MACIAS (SON) [phone] 0 * Community resources currently utilized None 0 * Additional services required to return to the preadmission environment? Yes 0 * Can the patient safely return to the preadmission environment? Yes 0 * Has this patient been hospitalized within the prior 30 days at any hospital? No 0 Grand Total: 0
--- NOTE | 2016-12-02 19:45 | NUR ---
PATIENT RESTING IN BED AND DENIES NEEDS AT THIS TIME. BED IN LOWEST POSITION, CALL LIGHT WITHIN REACH, AND BED ALARM ON. I REMINDED THE PATIENT THAT SHE COULD NOT HAVE ANYTHING TO EAT OR DRINK AFTER MIDNIGHT. PATIENT VERBALIZED UNDERSTANDING. ENCOURAGED THE PATIENT TO CALL IF SHE HAS NEEDS.
[2016-12-03] VITALS: BP 110/48
[2016-12-03 04:00] VITALS: BP 107/46
[2016-12-03 05:57] LABS: BASOPHILS 0.1 % (0-2); EOSINOPHILS 5.2 % (0-7); HEMATOCRIT 36.8 % (36.0-48.0); HEMOGLOBIN 12.7 g/dL (12-16); IMMATURE GRANULOCYTES 0.1 % (0-5); MCHC 34.5 g/dL (31.0-37.0); MEAN PLATELET VOLUME 10.4 fL (7.4-10.4); NEUTROPHILS 55.6 % (40-80); PLATELET COUNT 195 10x3/uL (130-400); RBC 4.23 10x6/uL (4.00-5.40); RDW 13.5 % (11.5-14.5); WBC 6.8 10x3/uL (4.8-10.8)
[2016-12-03 06:23] LABS: ALBUMIN 3.1 g/dL (3.4-5.0); ANION GAP 9.7 mmol/L (8-16); BILIRUBIN - TOTAL 0.59 mg/dL (0.2-1.3); CALCIUM 9.2 mg/dL (8.5-10.1); CARBON DIOXIDE 29.6 mmol/L (21.0-32.0); CREATININE - SERUM 0.8 mg/dL (0.6-1.3); POTASSIUM - SERUM 3.3 mmol/L (3.5-5.1); PROTEIN - SERUM 6.8 g/dL (6.4-8.2)
--- NOTE | 2016-12-03 07:25 | NUR ---
ASSESSMENT COMPLETE. IV TO R FA PATENT. NPO FOR HEART CATH TODAY. CHANGE OF ADDRESS CLERK SHOWING SR WITH PAC'S 69 PER TECH. SCDS IN USE TO BILAT LEGS. DENIES ANY NEEDS AT THIS TIME.
[2016-12-03 08:09] VITALS: BP 135/54
--- NOTE | 2016-12-03 09:00 | NUR ---
ASSISTED UP TO BATHROOM WITH MINIMAL ASSIST. DENIES ANY COMPLAINT OF DIZZINESS WHILE UP. RENETTA MAT IN USE.
--- NOTE | 2016-12-03 10:51 | NUR ---
OFF FLOOR TO PILLOW FILLER. WILL TRANSFER TO ROOM 2114 AFTER PROCEDURE. FAMILY IN ROOM NOTIFIED OF ROOM NUMBER.
[2016-12-03 12:00] VITALS: BP 186/101
[2016-12-03 16:00] VITALS: BP 145/65
--- NOTE | 2016-12-03 17:05 | NUR ---
RT GROIN DRSG REMAINS C/D, PULES PALP.
--- NOTE | 2016-12-03 17:48 | NUR ---
WITHOUT CHANGES OR DISTRESS AT THIS TIME. DENIES NEEDS.
[2016-12-03 20:00] VITALS: BP 146/66
--- NOTE | 2016-12-03 20:45 | NUR ---
RESUMED CARE OF PT, LYING IN BED WITH EYES CLOSED, RESPIRAITONS EVEN AND UNLABLORED ON 2LPM VIA NC. 89 SR ON TELEMETRY. RIGHT FOREARM SALINE LOCKED. RIGHT GROIN WNL, PEDAL PULSE PALPABLE. NO NEEDS AT THIS TIME, CALL LIGHT IN REACH. WILL CONTINUE TO MONITOR. SEE NURSE ASSESSMENT.
[2016-12-04] VITALS: BP 102/44
--- NOTE | 2016-12-04 00:19 | NUR ---
SENIOR ECONOMIST AT BEDSIDE TO OBTAIN VITALS, CALL LIGHT IN REACH. WILL CONTINUE TO MONITOR.
[2016-12-04 04:00] VITALS: BP 118/54
--- NOTE | 2016-12-04 04:53 | NUR ---
NO CHANGES FROM PREVIOUS ASSESSMENT, CALL LIGHT IN REACH. WILL CONTINUE TO MONITOR.
[2016-12-04 06:16] LABS: BASOPHILS 0.2 % (0-2); HEMATOCRIT 37.4 % (36.0-48.0); IMMATURE GRANULOCYTES 0.2 % (0-5); LYMPHOCYTES 24.1 % (15-50); MCH 30.2 pg (26.0-34.0); MCHC 34.8 g/dL (31.0-37.0); MCV 86.8 fL (80.0-100.0); MEAN PLATELET VOLUME 10.3 fL (7.4-10.4); NEUTROPHILS 61.5 % (40-80); PLATELET COUNT 218 10x3/uL (130-400); RBC 4.31 10x6/uL (4.00-5.40); RDW 13.7 % (11.5-14.5)
[2016-12-04 06:17] LABS: WBC 9.1 10x3/uL (4.8-10.8)
[2016-12-04 06:31] LABS: ALBUMIN 3.1 g/dL (3.4-5.0); ANION GAP 11.9 mmol/L (8-16); BILIRUBIN - TOTAL 0.48 mg/dL (0.2-1.3); CALCIUM 9.2 mg/dL (8.5-10.1); CARBON DIOXIDE 27.6 mmol/L (21.0-32.0); POTASSIUM - SERUM 3.5 mmol/L (3.5-5.1)
[2016-12-04 06:32] LABS: CREATININE - SERUM 1.1 mg/dL (0.6-1.3)
--- NOTE | 2016-12-04 07:30 | NUR ---
RECEIVED PT IN BED EYES CLOSED RESP UNLABORED NAD NOTED
[2016-12-04 07:47] VITALS: BP 101/52
[2016-12-04 11:42] VITALS: BP 103/50
--- NOTE | 2016-12-04 12:05 | NUR ---
TO LIMOUSINE AND HEARSE UPHOLSTERER VIA BED IN STABLE CONDITION
--- NOTE | 2016-12-04 12:22 | OP ---
PATIENT NAME: SOPHIA MANNING MEDICAL RECORD: [id number] :[birth year] LOCATION:D.M2 D.2118 ADMISSION DATE:12/01/16 SURGEON: ZAY GALLARDO MD DATE OF OPERATION: 12/03/2016 PROCEDURES: 1. PTCA stent RCA. 2. Left heart catheterization. 3. Selective coronary angiography. 4. Left ventriculogram. INDICATION: Angina and coronary artery disease. PROCEDURE IN DETAIL: After informed consent was obtained and after a detailed explanation of risks, benefits as well as alternative therapies, the patient elected to proceed with angiogram and angioplasty. The right femoral area was prepped and draped in normal sterile fashion. The right femoral artery was cannulated via modified Seldinger technique with placement of 6-Thai sheath. All catheters exchanged through this sheath. FINDINGS: The left ventriculogram was performed in standard 30-degree RADFORD view, reveals good cardiac wall motion throughout all segments. Overall ejection fraction estimated at 55%. SELECTIVE CORONARY ANGIOGRAPHY: 1. Left main showed no significant angiographic disease. 2. Left anterior descending has a 90% stenosis in the mid vessel. 3. Left circumflex shows moderate irregularities, but no flow-limiting stenosis. 4. Right coronary has an 80% stenosis in the mid vessel. PTCA STENT OF THE RIGHT CORONARY: The stent used was a 2.5 x 12 mm [place]. Result was 0% residual stenosis. OVERALL IMPRESSION: Successful percutaneous transluminal coronary angioplasty stent of the right coronary artery going from 80% initial stenosis to 0% residual. PLAN: PTCA stent of the LAD in the near future. TRANSINT:[id number] Voice Confirmation ID: [id number] DOCUMENT ID: [id number] ZAY GALLARDO MD at 1222 CC: [id number] DICTATION DATE: 12/03/16 1146 ASBESTOS BRAKE LINING FINISHER: 12/03/16 1427 [place] [address]
--- NOTE | 2016-12-04 12:22 | CN ---
PATIENT NAME:SOPHIA MANNING MEDICAL RECORD: [id number] : 36 LOCATION:D. D.2118 ADMIT DATE: 12/01/16 ACCOUNT: [id number] CONSULTING PHYSICIAN: ZAY GALLARDO MD REFERRING PHYSICIAN: AWA ALMAGUER MD DATE OF CONSULTATION: 12/02/2016 Cardiology Consultation ADMITTING DIAGNOSES: 1. Chest pain compatible with angina. 2. Coronary artery disease. 3. Previous PTCA stent, last being in 2010. 4. Hypertension. HISTORY OF PRESENT ILLNESS: Mrs. Manning presents with chest pain and out of control hypertension. She is on lisinopril, Bystolic for her blood pressure. Her blood pressure medications were adjusted by Dr. Hernandez. She continues to have episodes of chest pressure that radiates to her neck like that of her previous angina. Last cardiac intervention was in 2010. Her EKG is with no acute changes. Her blood pressure still remains in the 170 and 200 systolic range. PHYSICAL EXAMINATION: GENERAL APPEARANCE: Well-nourished, well-developed, appears stated age. Level of distress, comfortable. PSYCHIATRIC: Mental status, alert, normal affect. Orientation, oriented to time, place and person. EYES: Lids and conjunctiva, noninjected. No discharge, no pallor. ENT: Lips, teeth, gums, normal dentition. Oropharynx, no cyanosis, no pallor. NECK: Carotid arteries, bilateral normal upstroke, no bruits, no thrills. JUGULAR VEINS: No jugular venous pressure or distention. CERVICAL LYMPH NODES: Nontender, nonenlarged. THYROID: Not enlarged. Nontender. No nodules. LUNGS: Respiratory effort, unlabored. CHEST: Normal curvature. No thoracic deformity. No chest wall tenderness. Percussion, resonant. Auscultation, clear. No wheezes, no rales, no rhonchi. CARDIOVASCULAR: Precordial exam, nondisplaced. No heaves or pericardial thrills. Rate and rhythm, regular. Heart sounds, normal S1, normal S2. No S3, no gallop, no rub. Systolic murmur, not heard. Diastolic murmur, not heard. EXTREMITIES: No cyanosis, no edema. Peripheral pulses, full and equal in all extremities, except as noted. No bruits appreciated. ABDOMEN: Soft, nondistended. Normal aorta. No bruit. Nontender. No masses. Liver, nontender, no hepatomegaly. Spleen, nontender, no splenomegaly. MUSCULOSKELETAL: No joint tenderness. No joint swelling. No erythema. NEUROLOGICAL: Normal gait, normal strength, normal tone. SKIN: Warm and dry. REVIEW OF SYSTEMS: The patient reports easy bruising but reports no swollen glands. The patient reports no fever, no night sweats, no significant weight gain, no significant weight loss. No significant exercise tolerance. The patient reports no dry eyes, no irritation, no vision change. Patient reports no difficulty hearing and no ear pain. Patient reports no frequent nose bleeds or nose and sinus problems. Patient reports on arm pain on exertion. No shortness of breath while lying down. No history of heart murmur. Patient CONSULT REPORT [id number] SOPHIA MANNING reports no cough, no wheezing or coughing up blood. Patient reports no abdominal pain, no vomiting. Normal appetite. No diarrhea and not vomiting blood. No nausea and no constipation. Patient reports no incontinence. No difficulty urinating. No hematuria. No increased frequency. Patient reports no muscle aches. No weakness, no arthralgias, no back pain. No swelling of the extremities. Patient reports no abnormal mole, no jaundice, no rashes. Reports no loss of consciousness. No weakness and no numbness. No seizures, dizziness, or headaches. The patient reports no depression, no sleep disturbance, feeling safe in a relationship and no alcohol abuse. Patient reports on fatigue. Reports no runny nose or sinus pressure. No itching, no hives, and no frequent sneezing. OVERALL IMPRESSION: Increasing episodes of chest pain with out of control hypertension. We will add Procardia-XL 60 mg to her medical regimen for her blood pressure. Proceed with coronary angiography in the a.m. Further care depends upon findings of the angiography. TRANSINT:[id number] Voice Confirmation ID: [id number] DOCUMENT ID: [id number] ZAY GALALRDO MD at 1222 CC: [id number] DICTATION DATE: 12/02/16 1137 RETANNER: 12/02/16 1831 ADM IN [place] [id number] [place] [address]
--- NOTE | 2016-12-04 13:15 | NUR ---
BACK FROM RADIO/TV TECHNICIAN. VS STABLE. FEMSTOP ON L GROIN. NO EDEMA NOR BLEEDING. NOTED. PT ASLEEP. WILL CONTINUE TO MONITOR.
--- NOTE | 2016-12-04 13:55 | NUR ---
RECIVE PT BACK FROM X RAY NURSE VIA BED VSS LT GROIN WITH DRSG C/D/I FEMSTOP IN PLACE PPP X4 NAD NOTED
[2016-12-04] MEDS ORDERED: PLAVIX75 MG PO (15:33)
[2016-12-04 20:52] VITALS: BP 134/61
[2016-12-05 04:00] VITALS: BP 128/54
[2016-12-05 05:29] LABS: BASOPHILS 0.5 % (0-2); EOSINOPHILS 5.8 % (0-7); HEMATOCRIT 33.3 % (36.0-48.0); HEMOGLOBIN 11.3 g/dL (12-16); IMMATURE GRANULOCYTES 0.2 % (0-5); MCH 29.8 pg (26.0-34.0); MCHC 33.9 g/dL (31.0-37.0); MCV 87.9 fL (80.0-100.0); MONOCYTES 11.8 % (2-11); NEUTROPHILS 46.7 % (40-80); PLATELET COUNT 176 10x3/uL (130-400); RBC 3.79 10x6/uL (4.00-5.40); RDW 13.9 % (11.5-14.5)
[2016-12-05 05:44] LABS: WBC 6.5 10x3/uL (4.8-10.8)
[2016-12-05 05:49] LABS: ALBUMIN 2.8 g/dL (3.4-5.0); ANION GAP 8.9 mmol/L (8-16); BILIRUBIN - TOTAL 0.49 mg/dL (0.2-1.3); CALCIUM 8.7 mg/dL (8.5-10.1); CARBON DIOXIDE 29.1 mmol/L (21.0-32.0); CREATININE - SERUM 0.9 mg/dL (0.6-1.3); PROTEIN - SERUM 6.1 g/dL (6.4-8.2)
--- NOTE | 2016-12-05 07:37 | NUR ---
ASSESSMENT DONE. DENIES NEEDS.
[2016-12-05 08:00] VITALS: BP 157/71
--- NOTE | 2016-12-05 11:12 | DS ---
PATIENT:SOPHIA MANNING :36 MEDICAL RECORD: [id number] DISCHARGE SUMMARY ADMISSION DATE: 12/01/16 DISCHARGE DATE: DISCHARGE DIAGNOSES: 1. Angina. 2. Coronary artery disease. 3. Percutaneous transluminal coronary angioplasty stent right coronary artery and left anterior descending this admission. HOSPITAL COURSE: Mrs. Manning presents with unstable anginal symptomatology, found to have 2-vessel disease of the LAD and RCA, underwent successful PTCA stent of above territories, and had an uneventful postop course. She was discharged home with the addition of aspirin and Plavix to her medical regimen. She will follow up with [facility] in 1 month. TRANSINT:[id number] Voice Confirmation ID: [id number] DOCUMENT ID: [id number] ZAY GALLARDO MD at 1112 CC: [id number] DICTATION DATE: 12/04/16 1243 CERTIFIED TOWER CLIMBER: 12/05/16 0113 ADM IN [place] [id number] [place] [id number]
--- NOTE | 2016-12-05 11:12 | OP ---
PATIENT NAME: SOPHIA MANNING MEDICAL RECORD: [id number] :36 LOCATION:D.M2 D.2118 ADMISSION DATE:12/01/16 SURGEON: ZAY GALLARDO MD DATE OF OPERATION: 12/04/2016 PROCEDURES: 1. PTCA stent LAD. 2. Selective coronary angiography. INDICATION: Angina and coronary artery disease. PROCEDURE IN DETAIL: After informed consent was obtained and after detailed explanation of risks, benefits as well as alternative therapies, the patient elected to proceed with angiogram and angioplasty. The left femoral area was prepped and draped in normal sterile fashion. The left femoral artery was cannulated via modified Seldinger technique with placement of 6-Irish sheath. All catheters exchanged through this sheath. FINDINGS: The left anterior descending has an 80%-90% stenosis in the proximal vessel. This was addressed with a 2.25 x 15 mm Burr. Result was 0% residual stenosis. OVERALL IMPRESSION: Successful percutaneous transluminal coronary angioplasty stent of the left anterior descending going from 90% initial stenosis to 0% residual stenosis. TRANSINT:[id number] Voice Confirmation ID: [id number] DOCUMENT ID: [id number] ZAY GALLARDO MD at 1112 CC: [id number] DICTATION DATE: 12/04/16 1244 PROCESS TECH: 12/04/16 1924 ADM IN [place] [id number] [place] [address]
[2016-12-05 12:00] VITALS: BP 143/58
--- NOTE | 2016-12-05 12:14 | NUR ---
DC GIVEN TO PT
--- NOTE | 2016-12-05 12:31 | NUR ---
DC HOME PER PERSONAL CAR
--- NOTE | 2016-12-05 17:35 | NUR ---
Patient Name: SOPHIA MANNING Encounter No: [id number] : 1940 Primary Insurance: MEDICARE A & B Anticipated DC Date: 12-05-2016 Planned Disposition: Home LATE ENTRY: DCP follow-up note: CM MET WITH PT IN ROOM TO DISCUSS DISCHARGE NEEDS AND PLANNING. CM DISCUSSED AVAILABILITY OF HOME HEALTH, REHAB SERVICES AND MEDICAL EQUIPMENT. PT DENIES DISCHARGE NEEDS. FRIEND HERE TO TRANSPORT HOME AT DISCHARGE TODAY. IMPORTANT MESSAGE FROM MEDICARE PROVIDED AND EXPLAINED. BLU SANCHEZ, CASE MANAGEMENT
--- NOTE | 2016-12-07 18:19 | DS ---
PATIENT:SOPHIA MANNING :[birth year] MEDICAL RECORD: [id number] DISCHARGE SUMMARY ADMISSION DATE: 12/01/16 DISCHARGE DATE: 12/05/16 DATE OF ADMISSION: 12/01/2016 DATE OF DISCHARGE: 12/05/2016 ADMITTING DIAGNOSES: Acute coronary artery disease, hyponatremia, headache, weakness, hypertension, obstructive sleep apnea, transient ischemic attack and history of coronary artery disease with stenting. HOSPITAL COURSE: This is a lady of Dr. Hernandez's admitted with diagnoses as outlined above. Details are well-outlined in the history of the present illness, H&P. All events, lab procedures and diagnostic testing are well documented in the records. She was admitted, appropriate home medicines continued, placed on PPI for GI prophylaxis and SCDs for DVT prophylaxis. CONSULTANTS: Dr. Handley, cardiology, recommendations were followed. Please refer to his consultation note. She was taken to the kiln labourer. She underwent stenting to the RCA. Next day, taken back for stenting, I believe, to the LAD. She is stable for dismissal home today. She is afebrile, vital signs stable. Please refer to med rec. Diagnoses are the same as above. She has coronary artery disease with new stenting times 2 as described. Please refer to consultation and procedure reports. Greater than 30 minutes was spent on this discharge. TRANSINT:[id number] Voice Confirmation ID: [id number] DOCUMENT ID: [id number] Dictated By: ELLA CARY RN I have interviewed/examined the above patient and agree with these documented findings. RIYA SCHMITT MD at 1819 CC: [id number] DICTATION DATE: 12/05/16 1411 COPYING MACHINE MECHANIC: 12/06/16 0814 DIS IN 12/05/16 [place] [id number] [place] [address]
== END 2016-12-05 12:32 | disposition home or self-care (01) | DRG 247 ==
LOC: D.ER 18:10 → OBSVTIME 20:59 → D.MS 20:59 → D.M2 12-01 13:31 → D.MS 12-01 13:31 → D.M2 12-03 12:01
PROVIDERS: Emergency Medicine; Family Medicine Adult Medicine; Internal Medicine Interventional Cardiology; ADMIT Emergency Medicine
PROC: 4A023N7 Measurement of Cardiac Sampling and Pressure, Left Heart, Percutaneous Approach (ICD-10-PCS; 2016-12-03)
PROC: B2111ZZ Fluoroscopy of Multiple Coronary Arteries using Low Osmolar Contrast (ICD-10-PCS; 2016-12-03)
PROC: B2151ZZ Fluoroscopy of Left Heart using Low Osmolar Contrast (ICD-10-PCS; 2016-12-03)
PROC: 027034Z Dilation of Coronary Artery, One Artery with Drug-eluting Intraluminal Device, Percutaneous Approach (ICD-10-PCS; principal; 2016-12-03 10:00)
PROC: 027034Z Dilation of Coronary Artery, One Artery with Drug-eluting Intraluminal Device, Percutaneous Approach (ICD-10-PCS; 2016-12-04)
DX: I25.119 Atherosclerotic heart disease of native coronary artery with unspecified angina pectoris (principal); I16.1 Hypertensive emergency; E87.1 Hypo-osmolality and hyponatremia; R53.1 Weakness; G47.33 Obstructive sleep apnea (adult) (pediatric); R51 Headache; Z95.5 Presence of coronary angioplasty implant and graft; Z86.73 Personal history of transient ischemic attack (TIA), and cerebral infarction without residual deficits; G31.9 Degenerative disease of nervous system, unspecified

== ENCOUNTER 2016-12-26 10:06 | Observation (INO) | payer MEDICARE ==
[~2016-12-26 10:06] MED LIST changes: +ASPIRIN81 MG PO; +BETAPACE 80 MG80 MG PO; +BYSTOLIC10 MG PO; +CATAPRES0.1 MG PO; +NITROSTAT0.4 MG SL; +PLAVIX75 MG PO; +ZESTORETIC 20-1 EACH PO
[2016-12-26 10:59] LABS: BASOPHILS 0.3 % (0-2); EOSINOPHILS 4.3 % (0-7); HEMATOCRIT 30.8 % (36.0-48.0); HEMOGLOBIN 10.7 g/dL (12-16); IMMATURE GRANULOCYTES 0.3 % (0-5); MCH 30.6 pg (26.0-34.0); MCHC 34.7 g/dL (31.0-37.0); MEAN PLATELET VOLUME 9.7 fL (7.4-10.4); MONOCYTES 8.8 % (2-11); NEUTROPHILS 62.3 % (40-80); PLATELET COUNT 200 10x3/uL (130-400); RDW 13.9 % (11.5-14.5); WBC 7.5 10x3/uL (4.8-10.8)
[2016-12-26 11:16] LABS: APTT 24.9 SECONDS (22.8-39.4); INR 1.11 (0.85-1.17); PROTIME 14.2 SECONDS (11.6-15.0)
[2016-12-26 11:22] LABS: ALBUMIN 3.7 g/dL (3.4-5.0); ANION GAP 8.9 mmol/L (8-16); BILIRUBIN - TOTAL 0.6 mg/dL (0.2-1.3); CALCIUM 9.5 mg/dL (8.5-10.1); CARBON DIOXIDE 31.6 mmol/L (21.0-32.0); POTASSIUM - SERUM 3.5 mmol/L (3.5-5.1); PROTEIN - SERUM 7.3 g/dL (6.4-8.2)
[2016-12-26 15:58] VITALS: BP 146/65
--- NOTE | 2016-12-26 15:59 | NUR ---
RECIEVED PT TO FLOOR AT THIS TIME FROM ER VIA WHEELCHAIR. PT STABLE. ALERT AND ORIENTED. NO ACUTE DISTRESS NOTED. WILL CONTINUE PLAN OF CARE.
--- NOTE | 2016-12-26 16:00 | NUR ---
DR RILEY NOTIFIED OF CONSULT.
[2016-12-26 16:34] VITALS: BP 146/65; BMI 20.1
--- NOTE | 2016-12-26 18:43 | NUR ---
UP IN BED WATCHING TV AT THIS TIME. NO ACUTE DISTRESS NOTED. WILL CONTINUE PLAN OF CARE.
[2016-12-26 19:00] VITALS: BP 117/49
[2016-12-26 22:25] LABS: HEMATOCRIT 26.9 % (36.0-48.0); HEMOGLOBIN 9.4 g/dL (12-16)
[2016-12-27] VITALS: BP 122/47
--- NOTE | 2016-12-27 01:08 | NUR ---
PATIENT RESTING WELL IN BED, CALL LIGHT IN REACH. IV IS PATENT.
[2016-12-27 04:00] VITALS: BP 145/92
[2016-12-27 05:51] LABS: BASOPHILS 0.2 % (0-2); EOSINOPHILS 7.4 % (0-7); HEMATOCRIT 26.9 % (36.0-48.0); HEMOGLOBIN 9.4 g/dL (12-16); IMMATURE GRANULOCYTES 0.2 % (0-5); LYMPHOCYTES 28.1 % (15-50); MCH 30.6 pg (26.0-34.0); MCHC 34.9 g/dL (31.0-37.0); MCV 87.6 fL (80.0-100.0); MEAN PLATELET VOLUME 9.7 fL (7.4-10.4); MONOCYTES 11.9 % (2-11); NEUTROPHILS 52.2 % (40-80); PLATELET COUNT 162 10x3/uL (130-400); RBC 3.07 10x6/uL (4.00-5.40)
[2016-12-27 05:52] LABS: WBC 5.4 10x3/uL (4.8-10.8)
[2016-12-27 06:11] LABS: ANION GAP 10.5 mmol/L (8-16); CALCIUM 8.3 mg/dL (8.5-10.1); CARBON DIOXIDE 27.3 mmol/L (21.0-32.0); CREATININE - SERUM 0.8 mg/dL (0.6-1.3); POTASSIUM - SERUM 3.8 mmol/L (3.5-5.1)
--- NOTE | 2016-12-27 07:15 | NUR ---
RECIEVED REPORT ON PATIENT, PATIENT IS ALERT AND ORIENTED. PATIENT HAS A L AC IV WITH NS INFUSING AT 100ML/HR. PATIENT ON TELEMETRY, SR ON MONITOR WITH A RATE OF 66. PATIENT DENIES ANY NEEDS OR COMPLAINTS AT THIS TIME. BED LOW AND LOCKED. CALL LIGHT IN REACH. CPOC
--- NOTE | 2016-12-27 09:00 | NUR ---
MORNING MEDICATION GIVEN, NO ISSUES. ASSESSMENT DONE. DENIES FURTHER NEEDS. CPOC
--- NOTE | 2016-12-27 12:00 | NUR ---
PATIENT SITTING UP IN BED EATING LUNCH. DENIES ANY NEEDS AT THIS TIME. WILL CONT TO MONITOR PATIENT. CPOC
--- NOTE | 2016-12-27 14:23 | NUR ---
PATIENT SITTING UP IN BED, DENIES ANY NEEDS OR PAIN AT THIS TIME. CPOC
--- NOTE | 2016-12-27 14:52 | NUR ---
PATIENT GIVEN DC INSTRUCTIONS. IV DC WITH CATH TIP INTACT. PATIENT DENIES ANY QUESTIONS. RIDE IS HERE. PATIENT READY FOR DC
--- NOTE | 2017-01-12 15:54 | DS ---
PATIENT:SOPHIA MANNING :36 MEDICAL RECORD: [id number] DISCHARGE SUMMARY ADMISSION DATE: 12/26/16 DISCHARGE DATE: 12/27/16 DATE OF ADMISSION: 12/26/2016. DISCHARGE DATE: 12/27/2016. DISCHARGE DIAGNOSES: 1. Weakness. 2. Rectal bleed. 3. Hypertension. 4. History of coronary artery disease. 5. History of TIA. CONSULTS: Dr. Herrera for lower GI bleeding. HOSPITAL COURSE: The full H&P is listed on the chart for this 76-year-old patient who was admitted with bright red blood per rectum. She did have a stable H&H. Her Plavix was held due to the lower GI bleed. Dr. Herrera was consulted. It was felt that she had diverticula that bled. She was on supportive medical care with PPIs and SCDs for DVT prophylaxis, initial bowel rest. She had no further bleeding overnight with a stable H&H. It was felt that she was stable to go home and would have a colonoscopy in the outpatient setting. See med rec. TRANSINT:[id number] Voice Confirmation ID: [id number] DOCUMENT ID: [id number] Dictated By: FILIPPO PABON I have interviewed/examined the above patient and agree with these documented findings. ABBE OLSON MD at 1110 at 1553 CC: [id number] DICTATION DATE: 01/07/17 0848 ARBORICULTURE INSTRUCTOR: 01/07/17 1410 DIS IN 12/27/16 [place] [id number] [place] [id number]
== END 2016-12-27 15:13 | disposition home or self-care (01) ==
LOC: D.ER 10:06 → D.M2 15:40 → OBSVTIME 15:40 → D.M2 12-27 15:13
PROVIDERS: Emergency Medicine; ADMIT Family Medicine
DX: K92.2 Gastrointestinal hemorrhage, unspecified (principal); I10 Essential (primary) hypertension; G47.33 Obstructive sleep apnea (adult) (pediatric); I25.10 Atherosclerotic heart disease of native coronary artery without angina pectoris; Z95.5 Presence of coronary angioplasty implant and graft; Z86.73 Personal history of transient ischemic attack (TIA), and cerebral infarction without residual deficits

== ENCOUNTER 2017-01-07 18:55 | Emergency (ER) | payer MEDICARE ==
[2017-01-07 20:19] LABS: APPEARANCE CLEAR (CLEAR); COLOR YELLOW (YELLOW)
[2017-01-07 20:20] LABS: BILIRUBIN NEGATIVE (NEGATIVE); GLUCOSE NEGATIVE (NEGATIVE); KETONE NEGATIVE (NEGATIVE); NITRITE NEGATIVE (NEGATIVE); PROTEIN 1+ mg/dL (NEGATIVE); UROBILINOGEN NORMAL (NORMAL)
[2017-01-07 20:21] LABS: BACTERIA FEW /hpf (NONE SEEN); EPITHELIAL CELLS 0-5 /hpf (0-5); RED CELLS - URINE 0-5 /hpf (0-5); WHITE CELLS - URINE 0-5 /hpf (0-5)
[2017-01-07 20:29] LABS: BASOPHILS 0.3 % (0-2); EOSINOPHILS 3.1 % (0-7); HEMATOCRIT 32.3 % (36.0-48.0); HEMOGLOBIN 10.9 g/dL (12-16); IMMATURE GRANULOCYTES 0.1 % (0-5); LYMPHOCYTES 26.3 % (15-50); MCH 30.3 pg (26.0-34.0); MCHC 33.7 g/dL (31.0-37.0); MCV 89.7 fL (80.0-100.0); MEAN PLATELET VOLUME 9.9 fL (7.4-10.4); MONOCYTES 11.3 % (2-11); NEUTROPHILS 58.9 % (40-80); PLATELET COUNT 231 10x3/uL (130-400); RDW 14.6 % (11.5-14.5); WBC 7.5 10x3/uL (4.8-10.8)
[2017-01-07 20:53] LABS: ALBUMIN 3.8 g/dL (3.4-5.0); ANION GAP 13.1 mmol/L (8-16); BILIRUBIN - TOTAL 0.6 mg/dL (0.2-1.3); CALCIUM 9.8 mg/dL (8.5-10.1); CARBON DIOXIDE 27.5 mmol/L (21.0-32.0); POTASSIUM - SERUM 3.6 mmol/L (3.5-5.1); PROTEIN - SERUM 7.6 g/dL (6.4-8.2)
[2017-01-07 21:01] LABS: APTT 22.5 SECONDS (22.8-39.4); INR 1.1 (0.85-1.17); PROTIME 14.1 SECONDS (11.6-15.0)
== END 2017-01-07 23:18 | disposition home or self-care (01) ==
LOC: D.ER 18:55
PROVIDERS: Emergency Medicine Emergency Medical Services; Physician Assistant Medical
DX: F03.90 Unspecified dementia, unspecified severity, without behavioral disturbance, psychotic disturbance, mood disturbance, and anxiety (principal); I10 Essential (primary) hypertension; Z91.14 Patient's other noncompliance with medication regimen

== ENCOUNTER → 2017-01-30 08:14 | Outpatient (CLI) | payer MEDICARE ==
[~2017-01-30 08:14] MED LIST changes: +FLAGYL500 MG PO; +LEVAQUIN500 MG PO; +LISINOPRIL10 MG PO; +PREDNISONE10 MG PO
== END | disposition home or self-care (01) ==
LOC: D.CT 08:14
DX: R10.32 Left lower quadrant pain (principal); R63.4 Abnormal weight loss; I10 Essential (primary) hypertension

== ENCOUNTER 2017-03-03 12:46 | Emergency (ER) | payer MEDICARE ==
[~2017-03-03 12:46] MED LIST changes: -FLAGYL500 MG PO; -LEVAQUIN500 MG PO; -LISINOPRIL10 MG PO; -PREDNISONE10 MG PO
[2017-03-03 16:10] LABS: APPEARANCE CLEAR (CLEAR); COLOR YELLOW (YELLOW)
[2017-03-03 16:11] LABS: BILIRUBIN NEGATIVE (NEGATIVE); GLUCOSE NEGATIVE (NEGATIVE); KETONE NEGATIVE (NEGATIVE); NITRITE NEGATIVE (NEGATIVE); PROTEIN 1+ mg/dL (NEGATIVE); SPECIFIC GRAVITY 1.015 (1.005-1.020); UROBILINOGEN NORMAL (NORMAL)
[2017-03-03 16:13] LABS: BASOPHILS 0.4 % (0-2); EOSINOPHILS 0.9 % (0-7); HEMATOCRIT 35.7 % (36.0-48.0); HEMOGLOBIN 12.4 g/dL (12-16); LYMPHOCYTES 43.1 % (15-50); MCH 30.4 pg (26.0-34.0); MCHC 34.7 g/dL (31.0-37.0); MCV 87.5 fL (80.0-100.0); MONOCYTES 15.1 % (2-11); NEUTROPHILS 40.5 % (40-80); RBC 4.08 10x6/uL (4.00-5.40); RDW 13.2 % (11.5-14.5); WBC 2.3 10x3/uL (4.8-10.8)
[2017-03-03 16:32] LABS: ALBUMIN 3.1 g/dL (3.4-5.0); ANION GAP 12.8 mmol/L (8-16); BILIRUBIN - TOTAL 0.29 mg/dL (0.2-1.3); CALCIUM 9.4 mg/dL (8.5-10.1); CARBON DIOXIDE 27.1 mmol/L (21.0-32.0); CREATININE - SERUM 0.8 mg/dL (0.6-1.3); PROTEIN - SERUM 7.2 g/dL (6.4-8.2)
[2017-03-03 16:35] LABS: POTASSIUM - SERUM 2.9 mmol/L (3.5-5.1)
[2017-03-03 16:37] LABS: PLATELET COUNT 139 10x3/uL (130-400)
== END 2017-03-03 18:17 | disposition home or self-care (01) ==
LOC: D.ER 12:46
PROVIDERS: Emergency Medicine
DX: R53.1 Weakness (principal); Z87.19 Personal history of other diseases of the digestive system; R19.7 Diarrhea, unspecified; R05 Cough; I10 Essential (primary) hypertension

== ENCOUNTER 2017-03-04 17:04 | Observation (INO) | payer MEDICARE ==
[~2017-03-04] VITALS: Ht 157.5 cm; Wt 46.4 kg
[2017-03-04 17:59] LABS: BASOPHILS 0.6 % (0-2); EOSINOPHILS 1.3 % (0-7); HEMATOCRIT 38.1 % (36.0-48.0); HEMOGLOBIN 13.5 g/dL (12-16); IMMATURE GRANULOCYTES 0.3 % (0-5); LYMPHOCYTES 37.8 % (15-50); MCH 30.8 pg (26.0-34.0); MCHC 35.4 g/dL (31.0-37.0); MCV 86.8 fL (80.0-100.0); MONOCYTES 15.6 % (2-11); NEUTROPHILS 44.4 % (40-80); PLATELET COUNT 147 10x3/uL (130-400); RBC 4.39 10x6/uL (4.00-5.40); RDW 13.2 % (11.5-14.5)
[2017-03-04 18:04] LABS: WBC 3.2 10x3/uL (4.8-10.8)
[2017-03-04 18:27] LABS: ALBUMIN 3.3 g/dL (3.4-5.0); ANION GAP 13.1 mmol/L (8-16); BILIRUBIN - TOTAL 0.39 mg/dL (0.2-1.3); CALCIUM 9.6 mg/dL (8.5-10.1); CARBON DIOXIDE 25.5 mmol/L (21.0-32.0); CREATININE - SERUM 0.9 mg/dL (0.6-1.3); PROTEIN - SERUM 7.4 g/dL (6.4-8.2)
[2017-03-04 18:30] LABS: POTASSIUM - SERUM 3.6 mmol/L (3.5-5.1)
[2017-03-04 21:27] LABS: APPEARANCE CLEAR (CLEAR); BILIRUBIN NEGATIVE (NEGATIVE); COLOR YELLOW (YELLOW); GLUCOSE NEGATIVE (NEGATIVE); KETONE NEGATIVE (NEGATIVE); NITRITE NEGATIVE (NEGATIVE); PROTEIN TRACE mg/dL (NEGATIVE); UROBILINOGEN NORMAL (NORMAL)
[2017-03-04 21:28] LABS: BACTERIA MANY /hpf (NONE SEEN); EPITHELIAL CELLS OCC /hpf (0-5); RED CELLS - URINE OCC /hpf (0-5); WHITE CELLS - URINE 0-5 /hpf (0-5)
--- NOTE | 2017-03-04 22:00 | NUR ---
RCVD REPORT FROM DYLAN IN ER. STATED SHE GAVE PT SOLUMEDROL AT 850 PM AND STARTED LEVAQUIN AT 0900 PM. STATES PT IS GETTING FLUID BOLUS AND CAN BE SL AFTERWARDS. VSS. AWAITING PT ARRIVAL.
--- NOTE | 2017-03-04 22:40 | NUR ---
ER NURSE DYLAN STATED DR. BARAJAS ORDERED ZOFRAN PO 8 MG PRN TID AND TYLENOL 1000MG Q4HRS PRN.
--- NOTE | 2017-03-04 22:41 | NUR ---
PT ARRIVED TO FLOOR BY WHEELCHAIR. BREATHING EVEN AND UNLABORED. VSS. ORIENTED PT TO NURSE, ROOM, AND FLOOR. DENIES NEEDS AT THIS TIME. BED IN LOW POSITION, CALL LIGHT WITHIN REACH.
[2017-03-04 22:43] VITALS: BP 143/72; BMI 18.3
--- NOTE | 2017-03-05 04:37 | NUR ---
WORSHIP DIRECTOR AT BEDSIDE TO OBTAIN VITALS, CALL LIGHT IN REACH. WILL CONTINUE WITH PLAN OF CARE.
[2017-03-05 05:58] LABS: BASOPHILS 0.3 % (0-2); EOSINOPHILS 0.3 % (0-7); HEMOGLOBIN 12.8 g/dL (12-16); IMMATURE GRANULOCYTES 0.3 % (0-5); LYMPHOCYTES 28.6 % (15-50); MCH 30.2 pg (26.0-34.0); MCHC 34.6 g/dL (31.0-37.0); MCV 87.3 fL (80.0-100.0); MEAN PLATELET VOLUME 10.6 fL (7.4-10.4); MONOCYTES 2.7 % (2-11); NEUTROPHILS 67.8 % (40-80); PLATELET COUNT 149 10x3/uL (130-400); RBC 4.24 10x6/uL (4.00-5.40); RDW 13.4 % (11.5-14.5)
[2017-03-05 06:40] LABS: CALC OSMOLALITY 263 mosm/kg (275-300); CALCIUM 9.2 mg/dL (8.5-10.1); CARBON DIOXIDE 22.5 mmol/L (21.0-32.0); CHLORIDE - SERUM 94 mmol/L (98-107); GLUCOSE 138 mg/dL (74-106); MAGNESIUM - SERUM 1.6 mg/dL (1.8-2.4); POTASSIUM - SERUM 3.9 mmol/L (3.5-5.1); SODIUM 130 mmol/L (136-145); UREA NITROGEN 16 mg/dL (7-18)
[2017-03-05 06:47] LABS: CREATININE - SERUM 0.6 mg/dL (0.6-1.3); eGFR NON AFRICAN AMERICAN > 90 mL/min (90-120)
--- NOTE | 2017-03-05 07:39 | NUR ---
RECEIVED REPORT ON PATIENT. MORNING ROUNDS MADE. PATIENT RESTING COMFORTABLY. BED IN LOWEST POSITION, CALL LIGHT IN REACH, SR UP X 2. CPOC.
[2017-03-05 08:46] VITALS: BP 126/64
[2017-03-05 10:37] VITALS: Ht 157.5 cm; Wt 46.4 kg
--- NOTE | 2017-03-05 10:43 | NUR ---
PATIENT SITTING UP IN BED. ASSISTED PATIENT TO RESTROOM THEN TO BEDSIDE CHAIR. SHE NEEDS VERY LITTLE ASSISTANCE, STATES SHE FEELS "WEAK". ALL NEEDS MET. CALL LIGHT IN REACH. CPOC.
[2017-03-05 12:07] VITALS: BP 134/74
--- NOTE | 2017-03-05 12:55 | NUR ---
LYING IN BED EATING LUNCH. NO APPARENT DISTRESS. MONITOR SHOWS NSR @ RATE OF 97. WILL CONTINUE TO MONITOR.
[2017-03-05 19:00] VITALS: BP 144/85
--- NOTE | 2017-03-05 19:01 | NUR ---
EVENING ROUNDS MADE. PATIENT SITTING UP IN BED, WATCHING TV. NAD NOTED. BED IS IN LOWEST POSITION, CALL LIGHT IN REACH, SR UP X 2. DENIES ANY NEEDS AT THIS TIME. CPOC.
--- NOTE | 2017-03-05 21:11 | NUR ---
HS MEDS GIVEN WITH FRESH ICE WATER, PT DENIES PAIN OR NEEDS, ADJUSTED THERMOSTAT AT PT REQUEST.
--- NOTE | 2017-03-06 03:52 | NUR ---
RESTING WITH EYES CLOSED, RESPERATIONS EVEN, NO S/S DISTRESS NOTED.
[2017-03-06 04:00] VITALS: BP 127/59
[2017-03-06 05:25] LABS: BASOPHILS 0 % (0-2); EOSINOPHILS 0 % (0-7); HEMATOCRIT 33.2 % (36.0-48.0); HEMOGLOBIN 11.8 g/dL (12-16); IMMATURE GRANULOCYTES 0.4 % (0-5); MCH 29.9 pg (26.0-34.0); MCHC 35.5 g/dL (31.0-37.0); MEAN PLATELET VOLUME 10.3 fL (7.4-10.4); MONOCYTES 4.1 % (2-11); NEUTROPHILS 85.5 % (40-80); PLATELET COUNT 143 10x3/uL (130-400); RBC 3.94 10x6/uL (4.00-5.40)
[2017-03-06 05:41] LABS: MCV 84.3 fL (80.0-100.0)
[2017-03-06 06:36] LABS: ALBUMIN 2.7 g/dL (3.4-5.0); ALKALINE PHOSPHATASE 39 U/L (46-116); ALT (SGPT) 25 U/L (10-68); CALC OSMOLALITY 264 mosm/kg (275-300); CALCIUM 9.1 mg/dL (8.5-10.1); CHLORIDE - SERUM 93 mmol/L (98-107); CREATININE - SERUM 0.7 mg/dL (0.6-1.3); GLUCOSE 151 mg/dL (74-106); PROTEIN - SERUM 6.5 g/dL (6.4-8.2); SODIUM 128 mmol/L (136-145); UREA NITROGEN 27 mg/dL (7-18); eGFR NON AFRICAN AMERICAN 86 mL/min (90-120)
--- NOTE | 2017-03-06 07:43 | NUR ---
AM ROUNDS - PT IS AWAKE AND IN THE BATHROOM AT THIS TIME. IV TO LEFT FA, SL. MONITOR SHOWING CAF, HR 66. BED AT LOWEST POSITION. CALL BRITT IN USE/REACH. SIDE RAILS UP X2. WILL CONTINEUT O MONITOR
[2017-03-06 08:55] VITALS: BP 143/76
[2017-03-06 11:46] VITALS: BP 156/79
[2017-03-06] MEDS ORDERED: PREDNISONE10 MG PO (12:20)
--- NOTE | 2017-03-06 14:18 | NUR ---
D/C - WRITTENA DN VERBAL D/C INTRUCTIONS GIVEN TO PT. IV TO LEFT FA D/C, CATH TIP INTACT, 2X2 DRESSING APPLIED AND SECURED WITH TAPE, PT TOLERATED WELL. HEART MONITOR D/C AND RETURNED TO VAT CLEANER. PT IS CALLING HER DAUGHTER IN [place] FOR TRANSPORTATION. WILL CONTINUE TO MONITOR
== END 2017-03-06 15:29 | disposition home or self-care (01) ==
LOC: D.ER 17:04 → D.M2 20:45 → OBSVTIME 20:45 → D.M2 03-06 15:29
PROVIDERS: Emergency Medicine; Family Medicine; Physician Assistant; ADMIT Family Medicine
DX: J44.1 Chronic obstructive pulmonary disease with (acute) exacerbation (principal); I25.10 Atherosclerotic heart disease of native coronary artery without angina pectoris; Z95.5 Presence of coronary angioplasty implant and graft; I10 Essential (primary) hypertension; G47.33 Obstructive sleep apnea (adult) (pediatric); Z86.73 Personal history of transient ischemic attack (TIA), and cerebral infarction without residual deficits

== ENCOUNTER 2017-03-17 11:39 | Inpatient (IN) | payer MEDICARE ==
[~2017-03-17] VITALS: Ht 157.5 cm; Wt 47.4 kg
--- NOTE | ~2017-03-17 | DS ---
PATIENT:SOPHIA MANNING :[birth year] MEDICAL RECORD: [id number] DISCHARGE SUMMARY ADMISSION DATE: 03/17/17 DISCHARGE DATE: 03/22/17 DATE OF DISCHARGE: 03/22/2017 from the inpatient hospital. DISCHARGE DIAGNOSES: 1. Infectious colitis. 2. Abdominal pain. 3. Lower gastrointestinal bleed. 4. Coronary artery disease. 5. Chronic obstructive pulmonary disease. 6. Acute blood loss anemia. 7. Leukocytosis. 8. Hypokalemia. 9. Atrial fibrillation. 10. Hypertension. 11. Transient ischemic attack by history. 12. Obstructive sleep apnea. 13. Hyponatremia. CONSULTS THIS HOSPITALIZATION: GI with Dr. Herrera. PROCEDURES THIS HOSPITALIZATION: Flex sig on 03/[address] Herrera. HOSPITAL COURSE: Full H&P is located elsewhere on the chart on this 76-year-old female, who was admitted with abdominal pain and lower GI bleed. She was started on IV Flagyl and Levaquin for antibiotic coverage, IV fluid hydration, and clear liquid diet. She had a PPI GI prophylaxis. Dr. Herrera was consulted for GI with suspicion for infectious colitis versus C. diff. CDT stool studies were actually negative. She underwent flexible sigmoidoscopy on 03/19. Her symptoms improved significantly with treatment. She was tolerating a diet. She received a unit of packed red blood cells times 1 and H&H was stable after that. Case management was involved for discharge planning. She was considered stable for discharge on 03/22/2017. DISCHARGE MEDICATIONS: As per discharge medication reconciliation. DISCHARGE DISPOSITION: The patient is discharged home. She will continue her current diet and level of activity and will be seen by [facility]. She will follow up with primary care in 1 week and with GI in 2 weeks. At least 30 minutes was spent in this discharge activity. TRANSINT:[id number] Voice Confirmation ID: [id number] DOCUMENT ID: [id number] Dictated By: MARCO ANTONIO KEARNEY I have interviewed/examined the above patient and agree with these documented findings. DISCHARGE SUMMARY REPORT [id number] SOPHIA MANNING, CARLENE LEMUS at 1459 at 1459 CC: [id number] DICTATION DATE: 04/19/17 1506 PLASTERING SUPERVISOR: 04/20/17 1011 DIS IN 03/22/17 [facility] [address] [place] [address]
[~2017-03-17 11:39] MED LIST changes: +PREDNISONE10 MG PO
[2017-03-17 12:30] LABS: HEMATOCRIT 31.4 % (36.0-48.0); MCH 30.4 pg (26.0-34.0); MCV 86.7 fL (80.0-100.0); MEAN PLATELET VOLUME 9.3 fL (7.4-10.4); PLATELET COUNT 260 10x3/uL (130-400); RBC 3.62 10x6/uL (4.00-5.40); RDW 13.5 % (11.5-14.5); WBC 20.8 10x3/uL (4.8-10.8)
[2017-03-17 12:35] LABS: APTT 23.4 SECONDS (22.8-39.4); INR 1.04 (0.85-1.17); PROTIME 13.2 SECONDS (11.6-15.0)
[2017-03-17 12:43] LABS: ALBUMIN 2.9 g/dL (3.4-5.0); ANION GAP 12.2 mmol/L (8-16); BILIRUBIN - TOTAL 0.5 mg/dL (0.2-1.3); CALCIUM 9.3 mg/dL (8.5-10.1); CARBON DIOXIDE 26.7 mmol/L (21.0-32.0); CREATININE - SERUM 0.9 mg/dL (0.6-1.3); POTASSIUM - SERUM 3.9 mmol/L (3.5-5.1); PROTEIN - SERUM 6.5 g/dL (6.4-8.2)
[2017-03-17 13:03] LABS: LYMPHOCYTES 3 % (15-50); MONOCYTES 2 % (2-11); NEUTROPHILS 94 % (40-80)
[2017-03-17 13:04] LABS: PLATELET ESTIMATE NORMAL
[2017-03-17 18:28] LABS: BASOPHILS 0.1 % (0-2); EOSINOPHILS 0.1 % (0-7); HEMATOCRIT 28.6 % (36.0-48.0); HEMOGLOBIN 10.2 g/dL (12-16); IMMATURE GRANULOCYTES 0.3 % (0-5); LYMPHOCYTES 7.5 % (15-50); MCH 30.6 pg (26.0-34.0); MCHC 35.7 g/dL (31.0-37.0); MCV 85.9 fL (80.0-100.0); MEAN PLATELET VOLUME 8.8 fL (7.4-10.4); MONOCYTES 8.1 % (2-11); NEUTROPHILS 83.9 % (40-80); PLATELET COUNT 217 10x3/uL (130-400); RBC 3.33 10x6/uL (4.00-5.40); RDW 13.6 % (11.5-14.5); WBC 18.9 10x3/uL (4.8-10.8)
[2017-03-17 23:00] VITALS: BP 133/76
[2017-03-18 00:37] VITALS: BP 133/76; BMI 18.7
[2017-03-18 05:00] VITALS: BP 129/68
[2017-03-18 06:51] LABS: BASOPHILS 0.1 % (0-2); EOSINOPHILS 0.4 % (0-7); HEMATOCRIT 27.3 % (36.0-48.0); HEMOGLOBIN 9.6 g/dL (12-16); IMMATURE GRANULOCYTES 0.3 % (0-5); MCHC 35.2 g/dL (31.0-37.0); MEAN PLATELET VOLUME 9.5 fL (7.4-10.4); MONOCYTES 7.5 % (2-11); NEUTROPHILS 82.7 % (40-80); PLATELET COUNT 202 10x3/uL (130-400); WBC 16.9 10x3/uL (4.8-10.8)
[2017-03-18 06:53] LABS: MCV 88.1 fL (80.0-100.0)
[2017-03-18 07:11] LABS: ANION GAP 10.1 mmol/L (8-16); BILIRUBIN - TOTAL 0.7 mg/dL (0.2-1.3); CARBON DIOXIDE 25.7 mmol/L (21.0-32.0); CREATININE - SERUM 0.8 mg/dL (0.6-1.3); POTASSIUM - SERUM 3.8 mmol/L (3.5-5.1); PROTEIN - SERUM 5.3 g/dL (6.4-8.2)
[2017-03-18 07:12] LABS: ALBUMIN 2.1 g/dL (3.4-5.0)
[2017-03-18 08:45] VITALS: BP 153/64
[2017-03-18 11:09] VITALS: Ht 157.5 cm; Wt 47.4 kg
[2017-03-18 12:45] VITALS: BP 140/62
[2017-03-18 16:32] VITALS: BP 148/96
[2017-03-18 19:28] LABS: BASOPHILS 0.1 % (0-2); EOSINOPHILS 0.4 % (0-7); HEMATOCRIT 27.9 % (36.0-48.0); HEMOGLOBIN 9.7 g/dL (12-16); IMMATURE GRANULOCYTES 0.2 % (0-5); LYMPHOCYTES 8.2 % (15-50); MCH 30.6 pg (26.0-34.0); MCHC 34.8 g/dL (31.0-37.0); MEAN PLATELET VOLUME 9.3 fL (7.4-10.4); MONOCYTES 8.2 % (2-11); NEUTROPHILS 82.9 % (40-80); PLATELET COUNT 211 10x3/uL (130-400); RBC 3.17 10x6/uL (4.00-5.40)
[2017-03-19 02:00] VITALS: BP 158/66
[2017-03-19 05:00] VITALS: BP 149/69
[2017-03-19 06:08] LABS: BASOPHILS 0.1 % (0-2); EOSINOPHILS 0.5 % (0-7); HEMATOCRIT 28.6 % (36.0-48.0); HEMOGLOBIN 10.1 g/dL (12-16); IMMATURE GRANULOCYTES 0.2 % (0-5); LYMPHOCYTES 11.5 % (15-50); MCH 30.7 pg (26.0-34.0); MCHC 35.3 g/dL (31.0-37.0); MCV 86.9 fL (80.0-100.0); MEAN PLATELET VOLUME 9.6 fL (7.4-10.4); MONOCYTES 10.7 % (2-11); PLATELET COUNT 216 10x3/uL (130-400); RBC 3.29 10x6/uL (4.00-5.40); RDW 13.8 % (11.5-14.5); WBC 13.1 10x3/uL (4.8-10.8)
[2017-03-19 06:39] LABS: ALBUMIN 2.1 g/dL (3.4-5.0); ALKALINE PHOSPHATASE 43 U/L (46-116); ALT (SGPT) 11 U/L (10-68); CALCIUM 8.2 mg/dL (8.5-10.1); CHLORIDE - SERUM 100 mmol/L (98-107); CREATININE - SERUM 0.7 mg/dL (0.6-1.3); GLUCOSE 96 mg/dL (74-106); SODIUM 133 mmol/L (136-145); eGFR NON AFRICAN AMERICAN 86 mL/min (90-120)
[2017-03-19 06:40] LABS: CALC OSMOLALITY 263 mosm/kg (275-300); POTASSIUM - SERUM 3.2 mmol/L (3.5-5.1); UREA NITROGEN 7 mg/dL (7-18)
[2017-03-19 08:20] VITALS: BP 146/92
[2017-03-19 12:26] VITALS: BP 193/71
[2017-03-19 16:14] VITALS: BP 177/79
[2017-03-19 18:31] LABS: BASOPHILS 0.1 % (0-2); EOSINOPHILS 1.1 % (0-7); HEMATOCRIT 29.7 % (36.0-48.0); HEMOGLOBIN 10.5 g/dL (12-16); IMMATURE GRANULOCYTES 0.3 % (0-5); LYMPHOCYTES 12.5 % (15-50); MCH 30.5 pg (26.0-34.0); MCHC 35.4 g/dL (31.0-37.0); MCV 86.3 fL (80.0-100.0); MEAN PLATELET VOLUME 9.3 fL (7.4-10.4); MONOCYTES 12.1 % (2-11); NEUTROPHILS 73.9 % (40-80); PLATELET COUNT 219 10x3/uL (130-400); RBC 3.44 10x6/uL (4.00-5.40); RDW 13.7 % (11.5-14.5); WBC 11.8 10x3/uL (4.8-10.8)
[2017-03-19 20:00] VITALS: BP 144/52
[2017-03-20] VITALS: BP 160/74
[2017-03-20 04:00] VITALS: BP 144/95
[2017-03-20 06:18] LABS: BASOPHILS 0.1 % (0-2); EOSINOPHILS 1.1 % (0-7); HEMATOCRIT 25.5 % (36.0-48.0); IMMATURE GRANULOCYTES 0.3 % (0-5); LYMPHOCYTES 24.3 % (15-50); MCH 30.5 pg (26.0-34.0); MCHC 35.3 g/dL (31.0-37.0); MCV 86.4 fL (80.0-100.0); MEAN PLATELET VOLUME 9.7 fL (7.4-10.4); MONOCYTES 11.6 % (2-11); NEUTROPHILS 62.6 % (40-80); PLATELET COUNT 212 10x3/uL (130-400); RBC 2.95 10x6/uL (4.00-5.40); RDW 13.7 % (11.5-14.5); WBC 7.1 10x3/uL (4.8-10.8)
[2017-03-20 06:46] LABS: ALBUMIN 2.1 g/dL (3.4-5.0); ALKALINE PHOSPHATASE 37 U/L (46-116); ALT (SGPT) 11 U/L (10-68); BILIRUBIN - TOTAL 0.37 mg/dL (0.2-1.3); CALC OSMOLALITY 265 mosm/kg (275-300); CALCIUM 7.9 mg/dL (8.5-10.1); CARBON DIOXIDE 24.8 mmol/L (21.0-32.0); CHLORIDE - SERUM 100 mmol/L (98-107); CREATININE - SERUM 0.7 mg/dL (0.6-1.3); GLUCOSE 92 mg/dL (74-106); PROTEIN - SERUM 5.2 g/dL (6.4-8.2); SODIUM 134 mmol/L (136-145); UREA NITROGEN 8 mg/dL (7-18); eGFR NON AFRICAN AMERICAN 86 mL/min (90-120)
[2017-03-20 07:59] VITALS: BP 169/72
[2017-03-20 12:23] VITALS: BP 152/69
[2017-03-20 15:52] VITALS: BP 152/54
[2017-03-20 20:00] VITALS: BP 157/74
[2017-03-21] VITALS: BP 172/72
[2017-03-21 05:00] VITALS: BP 155/64
[2017-03-21 06:31] LABS: BASOPHILS 0.3 % (0-2); EOSINOPHILS 2.1 % (0-7); HEMATOCRIT 25.4 % (36.0-48.0); IMMATURE GRANULOCYTES 0.5 % (0-5); LYMPHOCYTES 29.1 % (15-50); MCH 30.4 pg (26.0-34.0); MCHC 35.4 g/dL (31.0-37.0); MCV 85.8 fL (80.0-100.0); MEAN PLATELET VOLUME 10.3 fL (7.4-10.4); MONOCYTES 11.8 % (2-11); NEUTROPHILS 56.2 % (40-80); PLATELET COUNT 212 10x3/uL (130-400); RBC 2.96 10x6/uL (4.00-5.40); RDW 13.8 % (11.5-14.5); WBC 6.3 10x3/uL (4.8-10.8)
[2017-03-21 06:55] LABS: ALBUMIN 2.3 g/dL (3.4-5.0); ALKALINE PHOSPHATASE 37 U/L (46-116); ALT (SGPT) 10 U/L (10-68); BILIRUBIN - TOTAL 0.15 mg/dL (0.2-1.3); C-REACTIVE PROTEIN 3.5 mg/dL (0.0-0.9); CALC OSMOLALITY 265 mosm/kg (275-300); CALCIUM 8.3 mg/dL (8.5-10.1); CARBON DIOXIDE 26.1 mmol/L (21.0-32.0); CHLORIDE - SERUM 100 mmol/L (98-107); CREATININE - SERUM 0.7 mg/dL (0.6-1.3); GLUCOSE 103 mg/dL (74-106); PROTEIN - SERUM 5.2 g/dL (6.4-8.2); SODIUM 134 mmol/L (136-145); UREA NITROGEN 8 mg/dL (7-18); eGFR NON AFRICAN AMERICAN 86 mL/min (90-120)
[2017-03-21 06:58] LABS: POTASSIUM - SERUM 2.8 mmol/L (3.5-5.1)
[2017-03-21 07:14] VITALS: BP 182/75
[2017-03-21 11:07] VITALS: BP 164/53
[2017-03-21 15:14] VITALS: BP 167/66
[2017-03-21 22:00] VITALS: BP 197/81
[2017-03-22 05:00] VITALS: BP 172/77
[2017-03-22 06:43] LABS: BASOPHILS 0.2 % (0-2); EOSINOPHILS 2.9 % (0-7); HEMOGLOBIN 10.5 g/dL (12-16); IMMATURE GRANULOCYTES 0.9 % (0-5); LYMPHOCYTES 30.2 % (15-50); MCH 30.2 pg (26.0-34.0); MCV 86.2 fL (80.0-100.0); MEAN PLATELET VOLUME 9.9 fL (7.4-10.4); MONOCYTES 12.7 % (2-11); NEUTROPHILS 53.1 % (40-80); PLATELET COUNT 201 10x3/uL (130-400); RBC 3.48 10x6/uL (4.00-5.40); WBC 5.6 10x3/uL (4.8-10.8)
[2017-03-22 07:03] LABS: ALBUMIN 2.2 g/dL (3.4-5.0); ALKALINE PHOSPHATASE 34 U/L (46-116); ALT (SGPT) 11 U/L (10-68); BILIRUBIN - TOTAL 0.41 mg/dL (0.2-1.3); CALC OSMOLALITY 271 mosm/kg (275-300); CALCIUM 8.1 mg/dL (8.5-10.1); CARBON DIOXIDE 26.5 mmol/L (21.0-32.0); CHLORIDE - SERUM 103 mmol/L (98-107); CREATININE - SERUM 0.6 mg/dL (0.6-1.3); GLUCOSE 98 mg/dL (74-106); POTASSIUM - SERUM 3.3 mmol/L (3.5-5.1); PROTEIN - SERUM 5.1 g/dL (6.4-8.2); SODIUM 137 mmol/L (136-145); UREA NITROGEN 7 mg/dL (7-18); eGFR NON AFRICAN AMERICAN > 90 mL/min (90-120)
[2017-03-22 07:28] VITALS: BP 174/86
[2017-03-22 11:04] VITALS: BP 156/68
[2017-03-22] MEDS ORDERED: FLAGYL500 MG PO (11:13)
[2017-03-22] MEDS ORDERED: LEVAQUIN500 MG PO (11:13)
[2017-03-22] MEDS ORDERED: LISINOPRIL10 MG PO (11:14)
[2017-03-25 16:11] LABS: ANCA - ANTIMYELOPEROXIDASE <9.0 U/mL (0.0-9.0); ANCA - ANTIPROTEINASE 3 <3.5 U/mL (0.0-3.5); ANCA - ATYPICAL <1:20 titer (Neg:<1:20); ANCA - CYTOPLASMIC <1:20 titer (Neg:<1:20); ANCA - PERINUCLEAR <1:20 titer (Neg:<1:20)
== END 2017-03-22 14:30 | disposition home or self-care (01) | DRG 386 ==
LOC: D.ER 11:39 → D.MS 15:34
PROVIDERS: Emergency Medicine; Family Medicine; Internal Medicine Gastroenterology
PROC: 0DBN8ZX Excision of Sigmoid Colon, Via Natural or Artificial Opening Endoscopic, Diagnostic (ICD-10-PCS; principal; 2017-03-19 15:00)
DX: K51.90 Ulcerative colitis, unspecified, without complications (principal); A09 Infectious gastroenteritis and colitis, unspecified; J44.1 Chronic obstructive pulmonary disease with (acute) exacerbation; I10 Essential (primary) hypertension; G47.33 Obstructive sleep apnea (adult) (pediatric); I25.10 Atherosclerotic heart disease of native coronary artery without angina pectoris; R53.1 Weakness

== ENCOUNTER 2017-06-08 22:45 | Observation (INO) | payer MEDICARE ==
[~2017-06-08] VITALS: Ht 157.5 cm; Wt 44.5 kg
[~2017-06-08 22:45] MED LIST changes: +FLAGYL500 MG PO; +LEVAQUIN500 MG PO; +LISINOPRIL10 MG PO
[2017-06-09 01:22] LABS: BASOPHILS 0.1 % (0-2); EOSINOPHILS 1.9 % (0-7); HEMATOCRIT 35.6 % (36.0-48.0); HEMOGLOBIN 12.6 g/dL (12-16); IMMATURE GRANULOCYTES 0.3 % (0-5); LYMPHOCYTES 9.8 % (15-50); MCH 31.4 pg (26.0-34.0); MCHC 35.4 g/dL (31.0-37.0); MCV 88.8 fL (80.0-100.0); MEAN PLATELET VOLUME 9.6 fL (7.4-10.4); MONOCYTES 8.1 % (2-11); NEUTROPHILS 79.8 % (40-80); PLATELET COUNT 227 10x3/uL (130-400); RBC 4.01 10x6/uL (4.00-5.40); RDW 13.9 % (11.5-14.5); WBC 12.9 10x3/uL (4.8-10.8)
[2017-06-09 01:46] LABS: ALBUMIN 3.7 g/dL (3.4-5.0); ALKALINE PHOSPHATASE 96 U/L (46-116); ALT (SGPT) 20 U/L (10-68); BILIRUBIN - TOTAL 0.67 mg/dL (0.2-1.3); CALC OSMOLALITY 262 mosm/kg (275-300); CALCIUM 9.4 mg/dL (8.5-10.1); CARBON DIOXIDE 29.5 mmol/L (21.0-32.0); CHLORIDE - SERUM 93 mmol/L (98-107); CREATININE - SERUM 0.7 mg/dL (0.6-1.3); GLUCOSE 106 mg/dL (74-106); PROTEIN - SERUM 7.7 g/dL (6.4-8.2); SODIUM 131 mmol/L (136-145); UREA NITROGEN 13 mg/dL (7-18); eGFR NON AFRICAN AMERICAN 85 mL/min (90-120)
[2017-06-09 01:50] LABS: POTASSIUM - SERUM 2.9 mmol/L (3.5-5.1)
[2017-06-09 01:54] LABS: CREATINE KINASE 83 UL (21-215); PRO BNP 585 pg/mL (0-450)
[2017-06-09 01:55] LABS: TROPONIN-I < 0.017 ng/mL (0.000-0.060)
[2017-06-09 03:26] LABS: APPEARANCE CLEAR (CLEAR); BILIRUBIN NEGATIVE (NEGATIVE); COLOR YELLOW (YELLOW); GLUCOSE NEGATIVE (NEGATIVE); KETONE MODERATE mg/dL (NEGATIVE); NITRITE NEGATIVE (NEGATIVE); PROTEIN 2+ mg/dL (NEGATIVE); UROBILINOGEN NORMAL (NORMAL)
[2017-06-09 03:28] LABS: BACTERIA FEW /hpf (NONE SEEN); EPITHELIAL CELLS 0-5 /hpf (0-5); RED CELLS - URINE 0-5 /hpf (0-5)
[2017-06-09 16:49] VITALS: BP 164/88; Ht 157.5 cm; Wt 44.5 kg
[2017-06-09 16:59] VITALS: BP 164/88
[2017-06-09 20:22] VITALS: BP 186/76
[2017-06-10 00:23] VITALS: BP 172/86
[2017-06-10 06:31] LABS: BASOPHILS 0.3 % (0-2); EOSINOPHILS 4.6 % (0-7); HEMATOCRIT 35.3 % (36.0-48.0); IMMATURE GRANULOCYTES 0.1 % (0-5); LYMPHOCYTES 24.2 % (15-50); MCH 30.4 pg (26.0-34.0); MCV 89.4 fL (80.0-100.0); MONOCYTES 13.1 % (2-11); NEUTROPHILS 57.7 % (40-80); PLATELET COUNT 205 10x3/uL (130-400); RBC 3.95 10x6/uL (4.00-5.40)
[2017-06-10 06:33] LABS: WBC 7.4 10x3/uL (4.8-10.8)
[2017-06-10 07:22] LABS: ALBUMIN 3.1 g/dL (3.4-5.0); ALKALINE PHOSPHATASE 83 U/L (46-116); ALT (SGPT) 14 U/L (10-68); BILIRUBIN - TOTAL 0.77 mg/dL (0.2-1.3); CALC OSMOLALITY 265 mosm/kg (275-300); CARBON DIOXIDE 28.6 mmol/L (21.0-32.0); CHLORIDE - SERUM 96 mmol/L (98-107); CREATININE - SERUM 0.6 mg/dL (0.6-1.3); GLUCOSE 106 mg/dL (74-106); POTASSIUM - SERUM 3.2 mmol/L (3.5-5.1); PROTEIN - SERUM 6.9 g/dL (6.4-8.2); SODIUM 133 mmol/L (136-145); UREA NITROGEN 13 mg/dL (7-18); eGFR NON AFRICAN AMERICAN > 90 mL/min (90-120)
[2017-06-10 11:05] VITALS: BP 187/97
[2017-06-10] MEDS ORDERED: PROTONIX40 MG PO (11:27)
[2017-06-10] MEDS ORDERED: ONDANSETRON4 MG/2 M3 IV (11:27)
[2017-06-10] MEDS ORDERED: DILAUD1MGAMP IV (11:28)
[2017-06-10] MEDS ORDERED: ACETAMINOPHEN325 MG PO (11:28)
[2017-06-10 13:22] VITALS: BP 183/81
[2017-06-10] MEDS ORDERED: HYDROCODON-ACE1 EAC7 PO (17:42)
== END 2017-06-10 17:47 ==
LOC: D.ER 22:45 → D.EDHOLD 06-09 01:12 → OBSVTIME 06-09 01:12 → D.MS 06-09 01:12
PROVIDERS: Family Medicine; Family Medicine Adult Medicine
DX: S32.502A Unspecified fracture of left pubis, initial encounter for closed fracture (principal); S42.032D Displaced fracture of lateral end of left clavicle, subsequent encounter for fracture with routine healing; W19.XXXA Unspecified fall, initial encounter; I10 Essential (primary) hypertension; G47.33 Obstructive sleep apnea (adult) (pediatric); E87.6 Hypokalemia; S00.81XA Abrasion of other part of head, initial encounter; I25.10 Atherosclerotic heart disease of native coronary artery without angina pectoris; Z95.5 Presence of coronary angioplasty implant and graft

== ENCOUNTER 2017-06-10 15:03 | Inpatient (IN) | payer MEDICARE ==
[~2017-06-10] VITALS: Ht 157.5 cm; Wt 44.5 kg
[~2017-06-10 15:03] MED LIST changes: +ACETAMINOPHEN325 MG PO; +DILAUD1MGAMP IV; +ONDANSETRON4 MG/2 M3 IV; +PROTONIX40 MG PO
[2017-06-10] MEDS ORDERED: HYDROCODON-ACE1 EAC7 PO (17:42)
[2017-06-10 18:18] VITALS: BP 191/95; BMI 17.9
[2017-06-10 20:06] VITALS: BP 167/85
[2017-06-11 08:05] VITALS: BP 182/80
[2017-06-11 10:44] VITALS: Ht 157.5 cm; Wt 44.5 kg
[2017-06-11 19:43] VITALS: BP 154/58
[2017-06-12 09:45] VITALS: BP 167/54
[2017-06-12 21:11] VITALS: BP 173/84
[2017-06-13 08:00] VITALS: BP 136/70
[2017-06-13 19:25] VITALS: BP 168/60
[2017-06-14 08:00] VITALS: BP 182/67
[2017-06-15 02:48] VITALS: BP 169/75
[2017-06-15 08:00] VITALS: BP 195/65
[2017-06-15 19:40] VITALS: BP 144/43
[2017-06-16 09:00] VITALS: BP 168/66
[2017-06-16 19:00] VITALS: BP 165/53
[2017-06-17 07:57] LABS: BASOPHILS 0.3 % (0-2); EOSINOPHILS 4.5 % (0-7); HEMATOCRIT 28.9 % (36.0-48.0); HEMOGLOBIN 9.9 g/dL (12-16); IMMATURE GRANULOCYTES 0.3 % (0-5); LYMPHOCYTES 21.3 % (15-50); MCH 30.4 pg (26.0-34.0); MCHC 34.3 g/dL (31.0-37.0); MCV 88.7 fL (80.0-100.0); MEAN PLATELET VOLUME 9.9 fL (7.4-10.4); MONOCYTES 13.1 % (2-11); NEUTROPHILS 60.5 % (40-80); PLATELET COUNT 237 10x3/uL (130-400); RBC 3.26 10x6/uL (4.00-5.40); RDW 13.6 % (11.5-14.5); WBC 6.2 10x3/uL (4.8-10.8)
[2017-06-17 08:11] LABS: ANION GAP 11.2 mmol/L (8-16); CREATININE - SERUM 0.8 mg/dL (0.6-1.3); POTASSIUM - SERUM 4.2 mmol/L (3.5-5.1)
[2017-06-17 09:32] VITALS: BP 147/60
[2017-06-17 19:05] VITALS: BP 122/74
[2017-06-18 06:58] VITALS: BP 189/73
[2017-06-18 20:05] VITALS: BP 134/74
[2017-06-19 06:30] LABS: BASOPHILS 0.3 % (0-2); EOSINOPHILS 4.7 % (0-7); HEMATOCRIT 31.2 % (36.0-48.0); HEMOGLOBIN 10.7 g/dL (12-16); IMMATURE GRANULOCYTES 0.4 % (0-5); MCH 30.8 pg (26.0-34.0); MCHC 34.3 g/dL (31.0-37.0); MCV 89.9 fL (80.0-100.0); MEAN PLATELET VOLUME 10.1 fL (7.4-10.4); MONOCYTES 9.8 % (2-11); NEUTROPHILS 58.8 % (40-80); RBC 3.47 10x6/uL (4.00-5.40); RDW 13.9 % (11.5-14.5); WBC 7.2 10x3/uL (4.8-10.8)
[2017-06-19 06:36] LABS: PLATELET COUNT 293 10x3/uL (130-400)
[2017-06-19 07:01] LABS: ANION GAP 12.7 mmol/L (8-16); CALCIUM 9.1 mg/dL (8.5-10.1); CARBON DIOXIDE 27.4 mmol/L (21.0-32.0); CREATININE - SERUM 0.8 mg/dL (0.6-1.3); POTASSIUM - SERUM 4.1 mmol/L (3.5-5.1)
[2017-06-19 08:14] VITALS: BP 175/67
[2017-06-19 21:22] VITALS: BP 160/88
[2017-06-20 07:11] VITALS: BP 192/77
[2017-06-20 19:46] VITALS: BP 158/67
[2017-06-21 10:37] VITALS: BP 180/66
[2017-06-21 19:18] VITALS: BP 188/78
[2017-06-22 05:54] LABS: BASOPHILS 0.4 % (0-2); EOSINOPHILS 4.5 % (0-7); HEMATOCRIT 29.2 % (36.0-48.0); HEMOGLOBIN 10.1 g/dL (12-16); IMMATURE GRANULOCYTES 0.4 % (0-5); LYMPHOCYTES 22.8 % (15-50); MCH 30.9 pg (26.0-34.0); MCHC 34.6 g/dL (31.0-37.0); MCV 89.3 fL (80.0-100.0); MEAN PLATELET VOLUME 9.7 fL (7.4-10.4); NEUTROPHILS 59.9 % (40-80); PLATELET COUNT 295 10x3/uL (130-400); RBC 3.27 10x6/uL (4.00-5.40); RDW 13.6 % (11.5-14.5); WBC 7.3 10x3/uL (4.8-10.8)
[2017-06-22 06:07] LABS: CALC OSMOLALITY 264 mosm/kg (275-300); CALCIUM 8.8 mg/dL (8.5-10.1); CHLORIDE - SERUM 98 mmol/L (98-107); CREATININE - SERUM 0.7 mg/dL (0.6-1.3); GLUCOSE 89 mg/dL (74-106); POTASSIUM - SERUM 3.9 mmol/L (3.5-5.1); SODIUM 133 mmol/L (136-145); UREA NITROGEN 12 mg/dL (7-18); eGFR NON AFRICAN AMERICAN 85 mL/min (90-120)
[2017-06-22 08:26] VITALS: BP 193/80
[2017-06-22] MEDS ORDERED: ARICEPT10 MG PO (08:33)
[2017-06-22] MEDS ORDERED: LISINOPRIL10 MG PO (08:33)
[2017-06-22] MEDS ORDERED: ZOLOFT50 MG PO (08:34)
[2017-06-22 19:13] VITALS: BP 171/83
[2017-06-23 08:04] VITALS: BP 200/79
== END 2017-06-23 16:24 | disposition home health service (06) | DRG 536 ==
LOC: D.REHAB 15:03
PROVIDERS: Emergency Medicine
DX: S32.592A Other specified fracture of left pubis, initial encounter for closed fracture (principal); J44.1 Chronic obstructive pulmonary disease with (acute) exacerbation; D62 Acute posthemorrhagic anemia; K92.2 Gastrointestinal hemorrhage, unspecified; G47.33 Obstructive sleep apnea (adult) (pediatric); I10 Essential (primary) hypertension; I25.10 Atherosclerotic heart disease of native coronary artery without angina pectoris; E87.6 Hypokalemia; Z95.5 Presence of coronary angioplasty implant and graft; K52.9 Noninfective gastroenteritis and colitis, unspecified; W19.XXXA Unspecified fall, initial encounter; R53.1 Weakness

== ENCOUNTER 2017-07-23 08:31 | Inpatient (IN) | payer MEDICARE ==
[~2017-07-23] VITALS: Ht 170.2 cm; Wt 44.1 kg
[~2017-07-23 08:31] MED LIST changes: +ARICEPT10 MG PO; +HYDROCODON-ACE1 EAC7 PO; +ZOLOFT50 MG PO
[2017-07-23 13:31] VITALS: BP 112/49; BMI 15.2
[2017-07-23 15:38] VITALS: BP 98/47
[2017-07-23 16:28] LABS: BASOPHILS 0.1 % (0-2); EOSINOPHILS 1.9 % (0-7); HEMATOCRIT 36.4 % (36.0-48.0); HEMOGLOBIN 12.7 g/dL (12-16); IMMATURE GRANULOCYTES 0.3 % (0-5); LYMPHOCYTES 14.8 % (15-50); MCH 30.5 pg (26.0-34.0); MCHC 34.9 g/dL (31.0-37.0); MCV 87.3 fL (80.0-100.0); MEAN PLATELET VOLUME 9.9 fL (7.4-10.4); NEUTROPHILS 70.9 % (40-80); RBC 4.17 10x6/uL (4.00-5.40); WBC 7.8 10x3/uL (4.8-10.8)
[2017-07-23 16:29] LABS: PLATELET COUNT 211 10x3/uL (130-400)
[2017-07-23 16:39] VITALS: Ht 170.2 cm; Wt 44.1 kg
[2017-07-23 16:42] LABS: ALBUMIN 3.1 g/dL (3.4-5.0); ANION GAP 9.5 mmol/L (8-16); BILIRUBIN - TOTAL 0.49 mg/dL (0.2-1.3); CALCIUM 9.4 mg/dL (8.5-10.1); CARBON DIOXIDE 28.7 mmol/L (21.0-32.0); CREATININE - SERUM 0.9 mg/dL (0.6-1.3); POTASSIUM - SERUM 3.2 mmol/L (3.5-5.1); PROTEIN - SERUM 7.3 g/dL (6.4-8.2)
[2017-07-23 20:44] VITALS: BP 116/46
[2017-07-24 01:17] VITALS: BP 154/62
[2017-07-24 05:00] VITALS: BP 124/64
[2017-07-24 05:31] LABS: BASOPHILS 0.3 % (0-2); HEMATOCRIT 29.6 % (36.0-48.0); HEMOGLOBIN 10.3 g/dL (12-16); IMMATURE GRANULOCYTES 0.2 % (0-5); LYMPHOCYTES 25.6 % (15-50); MCH 30.5 pg (26.0-34.0); MCHC 34.8 g/dL (31.0-37.0); MCV 87.6 fL (80.0-100.0); MEAN PLATELET VOLUME 9.7 fL (7.4-10.4); MONOCYTES 11.8 % (2-11); NEUTROPHILS 58.1 % (40-80); PLATELET COUNT 173 10x3/uL (130-400); RBC 3.38 10x6/uL (4.00-5.40); RDW 13.1 % (11.5-14.5); WBC 6.4 10x3/uL (4.8-10.8)
[2017-07-24 05:50] LABS: ALBUMIN 2.5 g/dL (3.4-5.0); ALKALINE PHOSPHATASE 110 U/L (46-116); ALT (SGPT) 11 U/L (10-68); BILIRUBIN - TOTAL 0.51 mg/dL (0.2-1.3); CALC OSMOLALITY 263 mosm/kg (275-300); CALCIUM 8.6 mg/dL (8.5-10.1); CARBON DIOXIDE 24.5 mmol/L (21.0-32.0); CHLORIDE - SERUM 98 mmol/L (98-107); CREATININE - SERUM 0.7 mg/dL (0.6-1.3); GLUCOSE 98 mg/dL (74-106); POTASSIUM - SERUM 3.1 mmol/L (3.5-5.1); PROTEIN - SERUM 5.8 g/dL (6.4-8.2); SODIUM 131 mmol/L (136-145); UREA NITROGEN 14 mg/dL (7-18); eGFR NON AFRICAN AMERICAN 85 mL/min (90-120)
[2017-07-24 09:07] VITALS: BP 179/74
[2017-07-24] MEDS ORDERED: Morphine Sulfate IV (11:19)
[2017-07-24] MEDS ORDERED: HYDRALAZINE20 MG/ML IV (11:20)
[2017-07-24] MEDS ORDERED: ONDANSETRON4 MG/2 M3 IV (11:20)
[2017-07-24 11:26] VITALS: BP 111/69
== END 2017-07-24 16:37 | DRG 536 ==
LOC: D.ER 08:31 → D.EDHOLD 10:11 → D.MS 10:11
PROVIDERS: Family Medicine
PROC: 0T9B70Z Drainage of Bladder with Drainage Device, Via Natural or Artificial Opening (ICD-10-PCS; principal; 2017-07-23)
DX: S32.591A Other specified fracture of right pubis, initial encounter for closed fracture (principal); D62 Acute posthemorrhagic anemia; S42.032K Displaced fracture of lateral end of left clavicle, subsequent encounter for fracture with nonunion; W19.XXXA Unspecified fall, initial encounter; I10 Essential (primary) hypertension; R53.1 Weakness; R55 Syncope and collapse; Z87.891 Personal history of nicotine dependence; I25.10 Atherosclerotic heart disease of native coronary artery without angina pectoris; S32.592D Other specified fracture of left pubis, subsequent encounter for fracture with routine healing

== ENCOUNTER 2017-07-24 16:42 | Inpatient (IN) | payer MEDICARE ==
[~2017-07-24] VITALS: Ht 170.2 cm; Wt 44.0 kg
--- NOTE | ~2017-07-24 | RHP ---
PATIENT: SOPHIA MANNING MEDICAL RECORD: [id number] ACCOUNT: [id number] LOCATION:[facility]1114 : [birth year] ADMISSION DATE: 07/24/17 REHABILITATION HISTORY AND PHYSICAL EXAMINATION POST ADMISSION PHYSICIAN EXAMINATION POST-ADMISSION PHYSICAL EXAM AND HISTORY AND PHYSICAL ADMITTING DIAGNOSES: Right superior and inferior pubic rami fractures. HISTORY OF PRESENT ILLNESS: The patient is admitted to inpatient rehab with orthopedic condition of acute fractures to her right superior and inferior pubic rami, presented to the ED after falling while ambulating to the bedside commode. She reports she did hit her forehead on the ground and did lose consciousness. She denied neck pain, complained of right hip pain and forehead pain. She was recently admitted and discharged approximately 5 weeks ago for hip surgery on her left hip for a pubic ramus fracture, not yet completely healed. She has got a history of coronary artery disease, had [address] Handley. She got accelerated hypertension, diverticulitis in the descending and sigmoid colon. She got generalized weakness. She has had some medical noncompliance, mild hyponatremia, [id number] anemia. She has had productive cough with COPD exacerbation. She has been seen by ortho and has been placed on a weightbearing as tolerated. The patient does not want surgery at this time. She is currently requiring telemetry and IV fluid. She lives alone with a daughter and has been staying with her lately, someone is down the street from hers. She states that she was moderately independent with use of a rolling walker or cane, was independent with her ADLs before. She states that she has been having falls in the past few months and uncertain of the cause. States that she has been having some home health services and was being followed by PT and speech therapy, speech therapy due to having her some short-term memory loss. She plans to return home at her prior level of functioning or better. COMORBIDITIES: In this patient include coronary artery disease, falls, pubic ramus fracture, obstructive sleep apnea, chronic TIAs and COPD. PAST MEDICAL HISTORY: Significant for cataracts, hypertension, coronary artery disease. She has had BiPAP in the past, does not use it at this time. She has got a history of gallbladder surgery, cataracts, tubal ligation, ORIF of her left leg and ORIF of her left wrist and left shoulder surgery. ALLERGIES: AMOXICILLIN AND PENICILLIN. MEDICATIONS: Current medications include Zoloft 50 mg daily. She is on Protonix 40 mg daily, Bystolic 10 mg daily, lisinopril 30 mg daily, Plavix 75 mg daily, aspirin chewable 81 mg daily, Delphia 1 tab q.4 hours p.r.n., Betapace 80 mg b.i.d., Zofran 8 mg q.8 hours p.r.n., Nitrostat p.r.n., Apresoline 10 mg q.6 hours for blood pressure greater than 160, Tylenol 650 q.4 hours p.r.n. pain, and MiraLax 17 g in 8 ounces of water daily. HABITS: No tobacco use. FAMILY HISTORY: Noncontributory. SOCIAL HISTORY: The patient hopes to return back home, live with her daughter and get back to her prior level of functioning. HISTORY AND PHYSICAL [id number] SOPHIA MANNING REVIEW OF SYSTEMS: GENERAL: Does complain of weakness and fatigue. HEENT: Denies cold, cough, or congestion. CARDIOVASCULAR: Denies chest pain. LUNGS: Denies any shortness of breath. PHYSICAL EXAMINATION: VITAL SIGNS: Stable. She is afebrile. GENERAL: Elderly female who is in no acute distress. She is noted to be quite thin upon exam. HEENT: Normocephalic and atraumatic. Mucosa moist. NECK: Supple without adenopathy. LUNGS: Clear at this time. HEART: Regular rate and rhythm. ABDOMEN: Benign. EXTREMITIES: She does have some pain to palpation along her pelvic rim. NEUROLOGIC: She seems intact. LABORATORY DATA: Her white count is 8.7, H&H of 11 and 32 and platelet count is 191. Her sodium is 130, potassium 3.7. BUN and creatinine of 12 and 0.6 and blood sugar is noted to be 107. Her admit UA is negative. ASSESSMENT: This is a 77-year-old female patient admitted to rehab with a working diagnosis of right superior and inferior pubic rami fracture. The patient has potential to make improvement. We instituted the following multidisciplinary therapies include, but not limited to physical, occupational, respiratory, speech, nutritional services, prosthetics and orthotics. Given her complex medical condition and risk for more complications, rehabilitation services cannot be provided at a low level of care such as longterm facility. PLAN: 1. Admit to [facility] for intensive inpatient therapy to include the following disciplines: A. Physical therapy for improve gait, all transfer skills and bed mobility to a modified independent level. B. Occupational therapy to improve activities of daily living to a modified independent level. C. Case management to assist with discharge planning and placement options. D. Nutrition to assist with nutritional needs. E. Rehabilitation nursing to assist in monitoring the patient's underlying medical conditions and to assist with any type of bowel or bladder management. 2. The patient's current medications and medical care will be continued. 3. The patient will be placed on standard fall precautions. 4. The patient's estimated length of stay is approximately 7-10 days. 5. Discuss this patient during care team staff meeting this week. We will mobilize her and get her home as soon as possible. TRANSINT:[id number] Voice Confirmation ID: [id number] DOCUMENT ID: [id number] WERO notes whether there has been none or any medical/functional change since admission: - NO CHANGE SINCE PRESCREEN. HISTORY AND PHYSICAL [id number] SOPHIA MANNING attests patient continues to be appropriate for IRF: - CONTINUES TO BE APPROPRIATE. AWA ALMAGUER MD at 1157 CC: [id number] DICTATION DATE: 07/25/17 1245 TRANSFER TABLE OPERATOR: 07/25/17 1426 ADM IN [facility] [address] [place] [address]
[~2017-07-24 16:42] MED LIST changes: +HYDRALAZINE20 MG/ML IV; +Morphine Sulfate IV
[2017-07-24 17:08] VITALS: BP 108/68; BMI 15.2
[2017-07-25 01:53] LABS: APPEARANCE CLEAR (CLEAR); BILIRUBIN NEGATIVE (NEGATIVE); COLOR YELLOW (YELLOW); GLUCOSE NEGATIVE (NEGATIVE); KETONE NEGATIVE (NEGATIVE); NITRITE NEGATIVE (NEGATIVE); PROTEIN NEGATIVE (NEGATIVE); SPECIFIC GRAVITY 1.015 (1.005-1.020); UROBILINOGEN NORMAL (NORMAL)
[2017-07-25 06:32] LABS: BASOPHILS 0.2 % (0-2); EOSINOPHILS 3.7 % (0-7); HEMATOCRIT 32.3 % (36.0-48.0); HEMOGLOBIN 11.1 g/dL (12-16); IMMATURE GRANULOCYTES 0.2 % (0-5); MCH 30.1 pg (26.0-34.0); MCHC 34.4 g/dL (31.0-37.0); MCV 87.5 fL (80.0-100.0); MEAN PLATELET VOLUME 10.1 fL (7.4-10.4); MONOCYTES 10.1 % (2-11); NEUTROPHILS 70.8 % (40-80); PLATELET COUNT 191 10x3/uL (130-400); RBC 3.69 10x6/uL (4.00-5.40)
[2017-07-25 06:38] LABS: WBC 8.7 10x3/uL (4.8-10.8)
[2017-07-25 06:51] LABS: CALC OSMOLALITY 260 mosm/kg (275-300); CALCIUM 8.9 mg/dL (8.5-10.1); CARBON DIOXIDE 25.5 mmol/L (21.0-32.0); CHLORIDE - SERUM 98 mmol/L (98-107); CREATININE - SERUM 0.6 mg/dL (0.6-1.3); GLUCOSE 107 mg/dL (74-106); POTASSIUM - SERUM 3.7 mmol/L (3.5-5.1); SODIUM 130 mmol/L (136-145); UREA NITROGEN 12 mg/dL (7-18); eGFR NON AFRICAN AMERICAN > 90 mL/min (90-120)
[2017-07-25 08:00] VITALS: BP 202/94
[2017-07-25 12:06] VITALS: Ht 170.2 cm; Wt 44.0 kg
[2017-07-25 19:54] VITALS: BP 189/87
[2017-07-26 08:02] VITALS: BP 193/85
[2017-07-26 20:24] VITALS: BP 185/79
[2017-07-27 06:09] LABS: BASOPHILS 0.1 % (0-2); EOSINOPHILS 4.1 % (0-7); HEMATOCRIT 31.2 % (36.0-48.0); HEMOGLOBIN 10.8 g/dL (12-16); IMMATURE GRANULOCYTES 0.3 % (0-5); LYMPHOCYTES 19.4 % (15-50); MCHC 34.6 g/dL (31.0-37.0); MCV 86.7 fL (80.0-100.0); MEAN PLATELET VOLUME 9.9 fL (7.4-10.4); MONOCYTES 11.9 % (2-11); NEUTROPHILS 64.2 % (40-80); PLATELET COUNT 197 10x3/uL (130-400); RDW 13.2 % (11.5-14.5); WBC 7.6 10x3/uL (4.8-10.8)
[2017-07-27 06:30] LABS: CALCIUM 9.1 mg/dL (8.5-10.1); CARBON DIOXIDE 25.5 mmol/L (21.0-32.0); CHLORIDE - SERUM 97 mmol/L (98-107); CREATININE - SERUM 0.7 mg/dL (0.6-1.3); GLUCOSE 97 mg/dL (74-106); SODIUM 132 mmol/L (136-145); eGFR NON AFRICAN AMERICAN 85 mL/min (90-120)
[2017-07-27 06:34] LABS: CALC OSMOLALITY 265 mosm/kg (275-300); POTASSIUM - SERUM 4.4 mmol/L (3.5-5.1); UREA NITROGEN 16 mg/dL (7-18)
[2017-07-27 08:14] VITALS: BP 165/74
[2017-07-27 21:08] VITALS: BP 178/79
[2017-07-28 08:00] VITALS: BP 173/79
[2017-07-28 19:56] VITALS: BP 179/68
[2017-07-29 06:04] LABS: BASOPHILS 0.3 % (0-2); EOSINOPHILS 4.2 % (0-7); HEMATOCRIT 28.9 % (36.0-48.0); HEMOGLOBIN 9.8 g/dL (12-16); IMMATURE GRANULOCYTES 0.3 % (0-5); LYMPHOCYTES 32.7 % (15-50); MCH 29.6 pg (26.0-34.0); MCHC 33.9 g/dL (31.0-37.0); MCV 87.3 fL (80.0-100.0); MEAN PLATELET VOLUME 9.8 fL (7.4-10.4); NEUTROPHILS 50.5 % (40-80); PLATELET COUNT 173 10x3/uL (130-400); RBC 3.31 10x6/uL (4.00-5.40); RDW 13.1 % (11.5-14.5); WBC 5.9 10x3/uL (4.8-10.8)
[2017-07-29 06:47] LABS: CALC OSMOLALITY 260 mosm/kg (275-300); CALCIUM 9.4 mg/dL (8.5-10.1); CARBON DIOXIDE 27.6 mmol/L (21.0-32.0); CHLORIDE - SERUM 97 mmol/L (98-107); CREATININE - SERUM 0.6 mg/dL (0.6-1.3); GLUCOSE 94 mg/dL (74-106); POTASSIUM - SERUM 4.4 mmol/L (3.5-5.1); SODIUM 129 mmol/L (136-145); UREA NITROGEN 19 mg/dL (7-18); eGFR NON AFRICAN AMERICAN > 90 mL/min (90-120)
[2017-07-29 08:00] VITALS: BP 168/66
[2017-07-29 19:54] VITALS: BP 203/74
[2017-07-30 08:00] VITALS: BP 201/86
[2017-07-30 23:09] VITALS: BP 125/65
[2017-07-31 08:12] VITALS: BP 179/83
[2017-07-31 19:00] VITALS: BP 204/88
[2017-08-01 08:00] VITALS: BP 186/73
[2017-08-01 20:00] VITALS: BP 159/79
[2017-08-02 18:48] VITALS: BP 197/94
[2017-08-03 07:37] VITALS: BP 180/80
[2017-08-03 19:00] VITALS: BP 193/76
[2017-08-04] MEDS ORDERED: ZESTRIL40 MG PO (06:19)
[2017-08-04] MEDS ORDERED: HYDROCODONE-APA1 TAB PO (06:19)
[2017-08-04 08:07] VITALS: BP 175/70
== END 2017-08-04 11:35 | disposition home health service (06) | DRG 560 ==
LOC: D.REHAB 16:42
PROVIDERS: Emergency Medicine
DX: S32.511D Fracture of superior rim of right pubis, subsequent encounter for fracture with routine healing (principal); J44.1 Chronic obstructive pulmonary disease with (acute) exacerbation; E87.1 Hypo-osmolality and hyponatremia; S32.591D Other specified fracture of right pubis, subsequent encounter for fracture with routine healing; W19.XXXD Unspecified fall, subsequent encounter; I25.10 Atherosclerotic heart disease of native coronary artery without angina pectoris; G47.33 Obstructive sleep apnea (adult) (pediatric); Z95.5 Presence of coronary angioplasty implant and graft; I10 Essential (primary) hypertension; R53.1 Weakness; Z86.73 Personal history of transient ischemic attack (TIA), and cerebral infarction without residual deficits; Z91.19 Patient's noncompliance with other medical treatment and regimen

== ENCOUNTER 2017-08-18 23:53 | Emergency (ER) | payer MEDICARE ==
[2017-07-25 12:06] VITALS: BMI 15.2
[~2017-08-18 23:53] MED LIST changes: +HYDROCODONE-APA1 TAB PO; +ZESTRIL40 MG PO
[2017-08-19 01:15] LABS: BASOPHILS 0.1 % (0-2); EOSINOPHILS 2.3 % (0-7); HEMATOCRIT 32.7 % (36.0-48.0); HEMOGLOBIN 11.3 g/dL (12-16); IMMATURE GRANULOCYTES 0.3 % (0-5); LYMPHOCYTES 14.7 % (15-50); MCH 30.2 pg (26.0-34.0); MCHC 34.6 g/dL (31.0-37.0); MCV 87.4 fL (80.0-100.0); MEAN PLATELET VOLUME 10.1 fL (7.4-10.4); NEUTROPHILS 73.6 % (40-80); RBC 3.74 10x6/uL (4.00-5.40); RDW 13.8 % (11.5-14.5); WBC 13.7 10x3/uL (4.8-10.8)
[2017-08-19 01:17] LABS: PLATELET COUNT 239 10x3/uL (130-400)
[2017-08-19 01:26] LABS: INR 1.13 (0.85-1.17); PROTIME 14.1 SECONDS (11.6-15.0)
[2017-08-19 01:30] LABS: ALBUMIN 3.1 g/dL (3.4-5.0); ANION GAP 8.6 mmol/L (8-16); BILIRUBIN - TOTAL 0.3 mg/dL (0.2-1.3); CALCIUM 8.9 mg/dL (8.5-10.1); CARBON DIOXIDE 30.6 mmol/L (21.0-32.0); CREATININE - SERUM 0.8 mg/dL (0.6-1.3); POTASSIUM - SERUM 3.2 mmol/L (3.5-5.1); PROTEIN - SERUM 6.9 g/dL (6.4-8.2)
[2017-08-19 02:10] LABS: BASOPHILS 0.2 % (0-2); EOSINOPHILS 1.7 % (0-7); HEMATOCRIT 28.4 % (36.0-48.0); HEMOGLOBIN 9.7 g/dL (12-16); IMMATURE GRANULOCYTES 0.4 % (0-5); LYMPHOCYTES 19.6 % (15-50); MCH 29.8 pg (26.0-34.0); MCHC 34.2 g/dL (31.0-37.0); MCV 87.1 fL (80.0-100.0); MEAN PLATELET VOLUME 9.8 fL (7.4-10.4); MONOCYTES 7.2 % (2-11); NEUTROPHILS 70.9 % (40-80); PLATELET COUNT 193 10x3/uL (130-400); RBC 3.26 10x6/uL (4.00-5.40); RDW 13.7 % (11.5-14.5); WBC 11.6 10x3/uL (4.8-10.8)
== END 2017-08-19 02:39 | disposition critical access hospital (66) ==
LOC: D.ER 23:53
PROVIDERS: Family Medicine
DX: S02.40CA Maxillary fracture, right side, initial encounter for closed fracture (principal); S02.40EA Zygomatic fracture, right side, initial encounter for closed fracture; W19.XXXA Unspecified fall, initial encounter; Y93.89 Activity, other specified; Y92.019 Unspecified place in single-family (private) house as the place of occurrence of the external cause; R04.0 Epistaxis; D62 Acute posthemorrhagic anemia

== ENCOUNTER 2017-09-25 11:18 | Inpatient (IN) | payer MEDICARE ==
[~2017-09-25] VITALS: Ht 170.2 cm; Wt 77.3 kg
[2017-09-25 12:50] VITALS: BP 190/90
[2017-09-25 13:08] VITALS: BP 186/90
[2017-09-25 13:48] LABS: HEMATOCRIT 33.6 % (36.0-48.0); HEMOGLOBIN 11.4 g/dL (12-16); LYMPHOCYTES 21.5 % (15-50); MCH 30.3 pg (26.0-34.0); MCHC 33.9 g/dL (31.0-37.0); MCV 89.4 fL (80.0-100.0); MEAN PLATELET VOLUME 8.8 fL (7.4-10.4); NEUTROPHILS 70.2 % (40-80); PLATELET COUNT 202 10x3/uL (130-400); RBC 3.76 10x6/uL (4.00-5.40); RDW 14.5 % (11.5-14.5); WBC 6.3 10x3/uL (4.8-10.8)
[2017-09-25 14:05] LABS: INR 1.12 (0.85-1.17)
[2017-09-25 14:13] LABS: ALBUMIN 3.4 g/dL (3.4-5.0); ALKALINE PHOSPHATASE 111 U/L (46-116); ALT (SGPT) 12 U/L (10-68); BILIRUBIN - TOTAL 0.53 mg/dL (0.2-1.3); CALC OSMOLALITY 271 mosm/kg (275-300); CALCIUM 9.8 mg/dL (8.5-10.1); CARBON DIOXIDE 28.7 mmol/L (21.0-32.0); CHLORIDE - SERUM 100 mmol/L (98-107); CREATININE - SERUM 0.7 mg/dL (0.6-1.3); GLUCOSE 102 mg/dL (74-106); POTASSIUM - SERUM 3.8 mmol/L (3.5-5.1); PROTEIN - SERUM 7.6 g/dL (6.4-8.2); SODIUM 136 mmol/L (136-145); UREA NITROGEN 13 mg/dL (7-18); eGFR NON AFRICAN AMERICAN 85 mL/min (90-120)
[2017-09-25 14:33] VITALS: BP 166/106
[2017-09-25 19:47] VITALS: BP 115/74
[2017-09-25 21:58] VITALS: BP 159/86
[2017-09-26] VITALS: BP 149/82
[2017-09-26 00:43] VITALS: BP 149/82; BMI 26.7
[2017-09-26 04:00] VITALS: BP 190/102
[2017-09-26] MEDS ORDERED: ARICEPT10 MG PO (04:23)
[2017-09-26] MEDS ORDERED: LISINOPRIL10 MG PO (04:24)
[2017-09-26] MEDS ORDERED: CATAPRES0.1 MG PO (04:26)
[2017-09-26 10:22] VITALS: BP 125/79; BP 136/68
[2017-09-26 13:02] VITALS: Ht 170.2 cm; Wt 77.3 kg
[2017-09-26 16:14] VITALS: BP 96/51
[2017-09-26 22:54] VITALS: BP 140/70
[2017-09-27 05:00] VITALS: BP 148/67
[2017-09-27 08:38] VITALS: BP 155/59
[2017-09-27 10:34] LABS: APPEARANCE HAZY (CLEAR); BACTERIA MANY /hpf (NONE SEEN); BILIRUBIN NEGATIVE (NEGATIVE); COLOR YELLOW (YELLOW); EPITHELIAL CELLS 0-5 /hpf (0-5); GLUCOSE NEGATIVE (NEGATIVE); KETONE NEGATIVE (NEGATIVE); NITRITE POSITIVE (NEGATIVE); PROTEIN NEGATIVE (NEGATIVE); RED CELLS - URINE 0-5 /hpf (0-5); SPECIFIC GRAVITY 1.015 (1.005-1.020); UROBILINOGEN NORMAL (NORMAL); WHITE CELLS - URINE 25-50 /hpf (0-5)
[2017-09-27] MEDS ORDERED: PERCOCET 5-3251 TAB PO (12:03)
[2017-09-27] MEDS ORDERED: LEVAQUIN250 MG PO (12:03)
[2017-09-27 12:09] VITALS: BP 134/60
[2017-09-27 15:23] VITALS: BP 116/65
== END 2017-09-27 18:30 | disposition home health service (06) | DRG 552 ==
LOC: D.ER 11:18 → D.EDHOLD 14:11 → D.MS 21:25
PROVIDERS: Emergency Medicine
DX: S22.089A Unspecified fracture of T11-T12 vertebra, initial encounter for closed fracture (principal); S32.029A Unspecified fracture of second lumbar vertebra, initial encounter for closed fracture; N39.0 Urinary tract infection, site not specified; W18.30XA Fall on same level, unspecified, initial encounter; D64.9 Anemia, unspecified; I10 Essential (primary) hypertension

== ENCOUNTER 2018-02-17 09:14 | Emergency (ER) | payer MEDICARE ==
[~2018-02-17] VITALS: Ht 170.2 cm; Wt 46.4 kg
[~2018-02-17 09:14] MED LIST changes: +LEVAQUIN250 MG PO; +PERCOCET 5-3251 TAB PO
[2018-02-17 09:39] VITALS: Ht 170.2 cm; Wt 46.4 kg
[2018-02-17 10:11] LABS: BASOPHILS 0.5 % (0-2); EOSINOPHILS 1.4 % (0-7); HEMATOCRIT 39.3 % (36.0-48.0); HEMOGLOBIN 13.6 g/dL (12-16); IMMATURE GRANULOCYTES 0.3 % (0-5); LYMPHOCYTES 20.2 % (15-50); MCH 30.2 pg (26.0-34.0); MCHC 34.6 g/dL (31.0-37.0); MCV 87.3 fL (80.0-100.0); NEUTROPHILS 69.6 % (40-80); PLATELET COUNT 208 10x3/uL (130-400); RDW 14.4 % (11.5-14.5); WBC 6.6 10x3/uL (4.8-10.8)
[2018-02-17 10:22] LABS: ALBUMIN 4.2 g/dL (3.4-5.0); ALKALINE PHOSPHATASE 72 U/L (46-116); ALT (SGPT) 18 U/L (10-68); BILIRUBIN - TOTAL 0.62 mg/dL (0.2-1.3); CALC OSMOLALITY 264 mosm/kg (275-300); CALCIUM 10.2 mg/dL (8.5-10.1); CARBON DIOXIDE 30.1 mmol/L (21.0-32.0); CHLORIDE - SERUM 93 mmol/L (98-107); CREATININE - SERUM 0.8 mg/dL (0.6-1.3); GLUCOSE 109 mg/dL (74-106); POTASSIUM - SERUM 3.4 mmol/L (3.5-5.1); PROTEIN - SERUM 8.7 g/dL (6.4-8.2); SODIUM 131 mmol/L (136-145); UREA NITROGEN 15 mg/dL (7-18); eGFR NON AFRICAN AMERICAN 73 mL/min (90-120)
[2018-02-17 10:27] LABS: APTT 24.3 SECONDS (22.8-39.4); INR 1.01 (0.85-1.17); PROTIME 12.8 SECONDS (11.6-15.0)
[2018-02-17 10:34] LABS: CKMB 1.5 U/L (0.0-3.6); CREATINE KINASE 80 UL (21-215)
[2018-02-17 10:35] LABS: TROPONIN-I < 0.017 ng/mL (0.000-0.060)
[2018-02-17 17:11] VITALS: BP 168/76
== END 2018-02-17 17:13 | disposition home or self-care (01) ==
LOC: D.ER 09:14
PROVIDERS: Emergency Medicine
DX: B34.9 Viral infection, unspecified (principal); R05 Cough; E86.0 Dehydration; R11.0 Nausea

== ENCOUNTER 2018-06-18 10:52 | Inpatient (IN) | payer MEDICARE ==
[~2018-06-18] VITALS: Ht 157.5 cm; Wt 43.5 kg
[2018-06-18] VITALS (10 sets, daily range): BP systolic 160–207; BP diastolic 69–130; BMI 17.6
[~2018-06-18 10:52] MED LIST changes: +ARICEPT23 MG PO
[2018-06-18] MEDS ORDERED: EFFEXOR75 MG PO (11:15)
[2018-06-18] MEDS ORDERED: PLAVIX75 MG PO (11:15)
[2018-06-18] MEDS ORDERED: ZOCOR20 MG PO (11:15)
[2018-06-18 11:55] LABS: HEMATOCRIT 33.6 % (36.0-48.0); HEMOGLOBIN 11.4 g/dL (12-16); LYMPHOCYTES 15.2 % (15-50); MCH 30.2 pg (26.0-34.0); MCHC 33.9 g/dL (31.0-37.0); MCV 88.9 fL (80.0-100.0); MEAN PLATELET VOLUME 9.7 fL (7.4-10.4); NEUTROPHILS 73.1 % (40-80); PLATELET COUNT 188 10x3/uL (130-400); RBC 3.78 10x6/uL (4.00-5.40); RDW 14.1 % (11.5-14.5); WBC 6.7 10x3/uL (4.8-10.8)
[2018-06-18 11:57] LABS: ALBUMIN 3.6 g/dL (3.4-5.0); ANION GAP 10.5 mmol/L (8-16); BILIRUBIN - TOTAL 0.39 mg/dL (0.2-1.3); CALCIUM 9.1 mg/dL (8.5-10.1); CARBON DIOXIDE 30.8 mmol/L (21.0-32.0); CREATININE - SERUM 1.1 mg/dL (0.6-1.3); POTASSIUM - SERUM 3.3 mmol/L (3.5-5.1); PROTEIN - SERUM 7.4 g/dL (6.4-8.2)
[2018-06-18 12:22] LABS: APTT 23.5 SECONDS (22.8-39.4); INR 1.02 (0.85-1.17); PROTIME 12.9 SECONDS (11.6-15.0)
--- NOTE | 2018-06-18 12:30 | NUR ---
OCCULT BLOOD STOOL SAMPLE POSITIVE. EDP NOTIFIED.
--- NOTE | 2018-06-18 14:34 | NUR ---
PT OBSERVED SITTING IN [facility]. RESPIRATIONS EVEN AND UNLABORED. DENIES ANY NEEDS AT THIS TIME. CALL LIGHT IN REACH. BLANKETS PROVIDED FOR COMFORT. WILL CONTINUE TO MONITOR.
--- NOTE | 2018-06-18 17:49 | NUR ---
REC'D PT TO ICU. ALL MONITORING EQUIPMENT ATTACHED AND ALARMS SET. DR MENDOZA HERE AND GI LAB TEAM HERE. CONCENTS SIGNED FOR COLONOSCOPY W/ TIVA. PT SEBASTIÁN PROCEDURE WELL. VSS.
--- NOTE | 2018-06-18 18:26 | MORECARE ---
CASE MANAGEMENT DISCHARGE SUMMARY PATIENT: SOPHIA MANNING UNIT: [id number] ADM DATE: 06/18/18 AGE: 78 : 38 SEX: F ROOM/BED: D.2304 AUTHOR: CHRIS,DOC PHYSICIAN: REFERRING PHYSICIAN: TEN BERMUDEZ MD DATE OF SERVICE: 06/18/18 Discharge Plan Patient Name: SOPHIA MANNING Facility: [facility]:[place] : 1940 Planned Disposition: Home Anticipated Discharge Date: Discharge Date: Expected LOS: Initial Reviewer: [email or web address] Initial Review Date: 06/18/2018 Generated: 06/18/18 7:26 pm DCP- Discharge Planning Updated by [email or web address]: Christine Saldana on 06/18/18 5:[address] Patient Name: SOPHIA MANNING Admission Status: ER Accout number: [id number] Admission Date: 06-18-2018 : 1940 Admission Diagnosis: Attending: TEN BERMUDEZ Current LOS: 1 Anticipated DC Date: Planned Disposition: Home Primary Insurance: MEDICARE A & B Discharge Planning Comments: CM met with patient to complete initial dc planning assessment. CM educated patient on the CM role and verbal consent given by patient to complete assessment. Patient lives at [facility]. She reports she is independent with her ADL's and IADL's but she does go and eat the prepared meals. At discharge patient plans to return to her apartment and feels this is a safe discharge. CM discussed availability of home health, rehab services, and medical equipment. Patient denied known discharge needs at this time. CM will continue to follow and will assist as needed with dc plans/needs. Database Operator: Christine Saldana DCPIA - Discharge Planning Initial Assessment Updated by [email or web address]: Christine Saldana on 06/18/18 6:22 pm * Is the patient Alert and Oriented? Yes * How many steps to enter\exit or inside your home? none * PCP Dr. Hernandez * Pharmacy [facility] * Preadmission Environment Independent [facility] Apartment * Facility Name [facility] - Recently moved there. * ADLs Independent * Equipment Cane * List name and contact numbers for known caregivers / representatives who currently or will assist patient after discharge: Manuelito Hartley [phone] * Verbal permission to speak to the caregivers and representatives has been obtained from the patient. Yes * Community resources currently utilized None * Additional services required to return to the preadmission environment? No * Can the patient safely return to the preadmission environment? Yes * Has this patient been hospitalized within the prior 30 days at any hospital? No Patient Name: SOPHIA MANNING Page [phone] at 1826 All edits/amendments must be made on the electronic document DICTATION DATE: 06/18/181824 COMMERCIAL FINANCE MANAGER: JUAN 06/18/181824 RPT#: [id number] DC DATE: STATUS: ADM IN [facility] [address] [place] [address] END OF REPORT
--- NOTE | 2018-06-18 18:30 | NUR ---
VERY SM AMT AMT RECTAL RBR. CLEANED AND CHANGED BRIEFS.
--- NOTE | 2018-06-18 19:00 | NUR ---
REPORT RECIEVED, SHIFT ASSESSMENT COMPLETE, PLEASE SEE FLOW SHEETS FOR DETAILS. DENIES PAIN/NEEDS. GLASSES AT BEDSIDE, PHONE WITHIN REACH. PURSE AT BEDSIDE, OFFERED SAFE USE, THIS WAS ACCEPTED, WILL CALL. MEDS AT BEDSIDE, INFORMED OF NEED TO COUNT AND SEND TO PHARMACY, PATIENT VERBAL CONSENT GIVEN. BED LOW AND LOCKED, WILL CONTINUE PLAN OF CARE.
[2018-06-18] MEDS ORDERED: ZOLOFT100 MG PO (19:55)
--- NOTE | 2018-06-18 20:25 | NUR ---
BP ELEVATED, CALLED DR BERMUDEZ, ORDERS RECIEVED.
--- NOTE | 2018-06-18 20:40 | NUR ---
UP TO CAMODE, 400 ML THIN BLOODY STOOL OUT WITH SMALL CLOTS THROUGHOUT. TOLERATED ACTIVITY WELL. DENIES PAIN/NEEDS.
--- NOTE | 2018-06-18 21:56 | NUR ---
PROVIDED CHICKEN BROTH. NO OTHER NEEDS.
[2018-06-19] VITALS (13 sets, daily range): BP systolic 102–159; BP diastolic 53–76; Ht 157.5 cm; Wt 43.5 kg
--- NOTE | 2018-06-19 00:08 | NUR ---
2300 REASSESSMENT COMPLETE, PLEASE SEE FLOW SHEETS FOR DETAILS. NO ACUTE CHANGES FROM PREVIOUS ASSESSMENT TO NOTE. UP TO CAMODE, URINE AND BM OUT - BLOODY 500 ML. MONITORING VS, HEMODYNAMICALLYS TABLE. WILL CONTINUE PLAN OF CARE.
--- NOTE | 2018-06-19 01:00 | NUR ---
UP TO CAMODE, 300 URINE AND BLOODY STOOL OUT. NAUSEA UPON RETURN TO BED. WILL CONTINUE PLAN OF CARE.
--- NOTE | 2018-06-19 02:56 | NUR ---
REASSESSMENT COMPLETE, PLEASE SEE FLOW SHEETS FOR DETAILS. SOME CONFUSION NOW. REORIENTED. FALL SAFETY PRECAUTIONS IN PLACE. WILL CONTINUE PLAN OF CARE.
[2018-06-19 03:38] LABS: BASOPHILS 0.1 % (0-2); EOSINOPHILS 0.1 % (0-7); HEMATOCRIT 31.4 % (36.0-48.0); HEMOGLOBIN 10.8 g/dL (12-16); IMMATURE GRANULOCYTES 0.2 % (0-5); LYMPHOCYTES 3.2 % (15-50); MCH 30.3 pg (26.0-34.0); MCHC 34.4 g/dL (31.0-37.0); MCV 88.2 fL (80.0-100.0); MEAN PLATELET VOLUME 10.3 fL (7.4-10.4); MONOCYTES 6.2 % (2-11); NEUTROPHILS 90.2 % (40-80); PLATELET COUNT 189 10x3/uL (130-400); RBC 3.56 10x6/uL (4.00-5.40)
[2018-06-19 03:47] LABS: WBC 13.7 10x3/uL (4.8-10.8)
[2018-06-19 04:14] LABS: ALBUMIN 3.1 g/dL (3.4-5.0); ALKALINE PHOSPHATASE 48 U/L (46-116); BILIRUBIN - TOTAL 0.66 mg/dL (0.2-1.3); CALCIUM 8.5 mg/dL (8.5-10.1); CHLORIDE - SERUM 102 mmol/L (98-107); GLUCOSE 117 mg/dL (74-106); MAGNESIUM - SERUM 1.6 mg/dL (1.8-2.4); PROTEIN - SERUM 6.6 g/dL (6.4-8.2); SODIUM 137 mmol/L (136-145)
[2018-06-19 04:16] LABS: ALT (SGPT) 16 U/L (10-68); CALC OSMOLALITY 277 mosm/kg (275-300); CREATININE - SERUM 0.7 mg/dL (0.6-1.3); POTASSIUM - SERUM 3.8 mmol/L (3.5-5.1); UREA NITROGEN 22 mg/dL (7-18); eGFR NON AFRICAN AMERICAN 85 mL/min (90-120)
--- NOTE | 2018-06-19 13:55 | NUR ---
CALLED REPORT TO [facility] -
--- NOTE | 2018-06-19 18:09 | NUR ---
PT UP AMBULATING TO BATHROOM WITH SBA. PT USES CALL LIGHT APPROPRIATELY FOR ASSIST. BLOODY STOOLS NOTED X2. DENIES ANY PAIN OR DISCOMFORT. MD AWARE OF PT CONDITION AND TREATMENT.
[2018-06-20] VITALS: BP 140/59; BP 195/86
[2018-06-20 03:00] VITALS: BP 136/61
[2018-06-20 05:29] LABS: BASOPHILS 0.1 % (0-2); EOSINOPHILS 3.4 % (0-7); HEMATOCRIT 26.8 % (36.0-48.0); HEMOGLOBIN 9.1 g/dL (12-16); IMMATURE GRANULOCYTES 0.3 % (0-5); LYMPHOCYTES 16.8 % (15-50); MCH 30.3 pg (26.0-34.0); MCV 89.3 fL (80.0-100.0); MEAN PLATELET VOLUME 10.3 fL (7.4-10.4); MONOCYTES 6.7 % (2-11); NEUTROPHILS 72.7 % (40-80); PLATELET COUNT 167 10x3/uL (130-400); RDW 14.4 % (11.5-14.5)
[2018-06-20 05:32] LABS: WBC 7.7 10x3/uL (4.8-10.8)
[2018-06-20 06:00] LABS: ALBUMIN 2.5 g/dL (3.4-5.0); ALKALINE PHOSPHATASE 39 U/L (46-116); ALT (SGPT) 16 U/L (10-68); BILIRUBIN - TOTAL 0.61 mg/dL (0.2-1.3); CALC OSMOLALITY 270 mosm/kg (275-300); CALCIUM 7.6 mg/dL (8.5-10.1); CARBON DIOXIDE 26.1 mmol/L (21.0-32.0); CHLORIDE - SERUM 104 mmol/L (98-107); CREATININE - SERUM 0.6 mg/dL (0.6-1.3); GLUCOSE 92 mg/dL (74-106); MAGNESIUM - SERUM 1.5 mg/dL (1.8-2.4); POTASSIUM - SERUM 3.5 mmol/L (3.5-5.1); PROTEIN - SERUM 5.3 g/dL (6.4-8.2); SODIUM 136 mmol/L (136-145); eGFR NON AFRICAN AMERICAN > 90 mL/min (90-120)
[2018-06-20 06:05] LABS: UREA NITROGEN 9 mg/dL (7-18)
--- NOTE | 2018-06-20 08:22 | NUR ---
PT ALERT X 4. BREATH SOUNDS CLEAR BILAT. TELEMETRY IN PLACE. PT REPORTING NO PAIN AT THIS TIME. IV TO RIGHT FOREARM, PATENT, DRESSING CLEAN DRY AND INTACT. SCD'S IN PLACE. BED LOW, CALL LIGHT IN REACH. NO OTHER NEEDS AT THIS TIME.
[2018-06-20 08:35] VITALS: BP 193/80
[2018-06-20 12:25] VITALS: BP 198/92
[2018-06-20 16:04] LABS: HEMATOCRIT 29.4 % (36.0-48.0); HEMOGLOBIN 9.9 g/dL (12-16)
[2018-06-20 17:10] VITALS: BP 147/58
[2018-06-20 20:00] VITALS: BP 213/94
--- NOTE | 2018-06-20 23:30 | NUR ---
LEFT UPPER ARM IV CAME OUT CATHETER INTACT. RESITED 22 G IV SECOND ATTEMPT TO LEFT AC. RESUMED IV FLUIDS. PT HAS DRANK MOST OF GO-LYTELY. PT HAVING LOOSE BLOODY STOOLS, NOT CLEAR YET. ENCOURAGED PT TO KEEP DRINKING THE GO-LYTELY. NO OTHER NEEDS. WILL CONTINUE TO MONITOR.
[2018-06-20 23:31] LABS: HEMATOCRIT 29.8 % (36.0-48.0); HEMOGLOBIN 10.2 g/dL (12-16)
[2018-06-21 03:00] VITALS: BP 182/75
[2018-06-21 05:16] LABS: BASOPHILS 0.2 % (0-2); EOSINOPHILS 4.4 % (0-7); HEMATOCRIT 27.8 % (36.0-48.0); HEMOGLOBIN 9.4 g/dL (12-16); IMMATURE GRANULOCYTES 0.2 % (0-5); LYMPHOCYTES 15.2 % (15-50); MCH 29.7 pg (26.0-34.0); MCHC 33.8 g/dL (31.0-37.0); MEAN PLATELET VOLUME 10.5 fL (7.4-10.4); MONOCYTES 8.6 % (2-11); NEUTROPHILS 71.4 % (40-80); PLATELET COUNT 179 10x3/uL (130-400); RBC 3.16 10x6/uL (4.00-5.40); WBC 6.2 10x3/uL (4.8-10.8)
[2018-06-21 05:35] LABS: ALBUMIN 2.7 g/dL (3.4-5.0); ALKALINE PHOSPHATASE 45 U/L (46-116); ALT (SGPT) 18 U/L (10-68); BILIRUBIN - TOTAL 0.44 mg/dL (0.2-1.3); CALC OSMOLALITY 268 mosm/kg (275-300); CALCIUM 7.9 mg/dL (8.5-10.1); CARBON DIOXIDE 25.9 mmol/L (21.0-32.0); CHLORIDE - SERUM 103 mmol/L (98-107); CREATININE - SERUM 0.6 mg/dL (0.6-1.3); GLUCOSE 88 mg/dL (74-106); MAGNESIUM - SERUM 1.8 mg/dL (1.8-2.4); PROTEIN - SERUM 5.9 g/dL (6.4-8.2); SODIUM 136 mmol/L (136-145); UREA NITROGEN 7 mg/dL (7-18); eGFR NON AFRICAN AMERICAN > 90 mL/min (90-120)
[2018-06-21 05:37] LABS: POTASSIUM - SERUM 3.8 mmol/L (3.5-5.1)
--- NOTE | 2018-06-21 07:43 | NUR ---
AWAKE AND ALERT. ORIENTED X3. NO C/O THIS AM. LUNGS ARE CLEAR BILATERALLY, NO COUGH NOTED. SKIN IS INTACT WITHOUT REDNESS. IV TO LEFT AC IS PATENT WTIHOUT REDNESS AT INSERTION SITE. DENIES NEEDS. NPO FOR PROCEDURE AT THIS TIME.
[2018-06-21 08:44] VITALS: BP 143/68
--- NOTE | 2018-06-21 10:08 | NUR ---
TOOK AM MEDS WTIHOUT DIFFCULTY. DENIES NEEDS.
--- NOTE | 2018-06-21 12:52 | NUR ---
OFF UNIT VIA BED FOR PROCEDURE.
[2018-06-21 13:15] VITALS: BP 201/72
--- NOTE | 2018-06-21 13:44 | NUR ---
NUTRITION F/U CHART REVIEWED. PT NPO AND OOR FOR PROCEDURE. WILL PROVIDE DIET WHEN RESUMED, MONITOR PO INTAKE. RD FOLLOWING
--- NOTE | 2018-06-21 14:30 | NUR ---
RETURNED FROM GI PROCEDURE. A/O X3. NO C/O AT THIS TIME.. VSS.
[2018-06-21 15:42] LABS: HEMATOCRIT 29.3 % (36.0-48.0); HEMOGLOBIN 9.8 g/dL (12-16)
--- NOTE | 2018-06-21 16:15 | NUR ---
BP UP PER MACHINE. MANUAL BP IS 167/82. WILL CONTINUE TO MONITOR.
[2018-06-21 16:30] VITALS: BP 167/82
--- NOTE | 2018-06-21 17:47 | NUR ---
SITTING UP IN BED EATING SUPPER. VSS. DENIES NEEDS.
--- NOTE | 2018-06-21 19:15 | NUR ---
ATE ALMOST ALL OF SUPPER. DENIES NEEDS. NO CHANGES NOTED.
--- NOTE | 2018-06-21 20:30 | NUR ---
A&O X 4. PRESSURE DRESSING TO LEFT HAND CDI. REQUESTS BRIEFS AND TOILETTE WIPES. NO FURTHER NEEDS AT THIS TIME.
--- NOTE | 2018-06-21 21:00 | NUR ---
BP 169/80.
[2018-06-21 21:35] VITALS: BP 169/72
[2018-06-21 23:12] LABS: HEMATOCRIT 26.3 % (36.0-48.0)
[2018-06-22 00:39] VITALS: BP 174/74
--- NOTE | 2018-06-22 03:25 | NUR ---
I have reviewed this patient and I concur with the Shift Assessment completed by the Licensed Practical Nurse today this shift.
[2018-06-22 04:44] VITALS: BP 155/65
[2018-06-22 05:20] LABS: BASOPHILS 0.2 % (0-2); EOSINOPHILS 3.2 % (0-7); HEMATOCRIT 26.9 % (36.0-48.0); HEMOGLOBIN 9.1 g/dL (12-16); IMMATURE GRANULOCYTES 0.2 % (0-5); LYMPHOCYTES 19.8 % (15-50); MCH 29.7 pg (26.0-34.0); MCHC 33.8 g/dL (31.0-37.0); MCV 87.9 fL (80.0-100.0); MEAN PLATELET VOLUME 10.2 fL (7.4-10.4); MONOCYTES 12.6 % (2-11); PLATELET COUNT 160 10x3/uL (130-400); RBC 3.06 10x6/uL (4.00-5.40); RDW 14.3 % (11.5-14.5)
[2018-06-22 05:38] LABS: ALBUMIN 2.5 g/dL (3.4-5.0); ALKALINE PHOSPHATASE 52 U/L (46-116); ALT (SGPT) 19 U/L (10-68); BILIRUBIN - TOTAL 0.19 mg/dL (0.2-1.3); CALC OSMOLALITY 264 mosm/kg (275-300); CALCIUM 7.5 mg/dL (8.5-10.1); CARBON DIOXIDE 24.1 mmol/L (21.0-32.0); CHLORIDE - SERUM 100 mmol/L (98-107); CREATININE - SERUM 0.7 mg/dL (0.6-1.3); GLUCOSE 94 mg/dL (74-106); MAGNESIUM - SERUM 1.5 mg/dL (1.8-2.4); POTASSIUM - SERUM 3.3 mmol/L (3.5-5.1); PROTEIN - SERUM 5.8 g/dL (6.4-8.2); SODIUM 133 mmol/L (136-145); eGFR NON AFRICAN AMERICAN 85 mL/min (90-120)
[2018-06-22 05:42] LABS: UREA NITROGEN 10 mg/dL (7-18)
--- NOTE | 2018-06-22 07:35 | NUR ---
PATIENT LYING IN BED. ALERT AND ORIENTED X 3. LUNGS CLEAR BILATERALLY IN ALL OSEGUERA. HEART SOUNDS S1 AND S2 HEARD IN ALL OSEGUERA. BOWEL SOUNDS ACTIVE X4. STATES NO PROBLEMS WITH BOWEL MOVEMENTS. STATES NO BLEEDING SINCE COLONOSCOPY. COUGH NOTED. STATES HAS BEEN COUGHING AND IS NOT NEW ISSUE. IV TO RIGHT HAND PATENT WITHOUT REDNESS. STAGE 2 PU NOTED TO COCCYX AND LEFT BUTTOCKS REDDENED. PATIENT BACK SIDE WITH BONY PROMINENCES. EDUCATED TO TURN SIDE TO SIDE WHILE IN BED TO PREVENT BREAKDOWN. DENIES PAIN. DENIES FURTHER NEEDS. WILL CONTINUE TO MONITOR.
--- NOTE | 2018-06-22 08:18 | NUR ---
MEDICATIONS GIVEN WITHOUT DIFFICULTY. BREAKFAST AT BEDSIDE
[2018-06-22 08:22] VITALS: BP 164/56
[2018-06-22] MEDS ORDERED: BYSTOLIC5 MG PO (10:00)
--- NOTE | 2018-06-22 10:05 | MORECARE ---
CASE MANAGEMENT DISCHARGE SUMMARY PATIENT: SOPHIA MANNING UNIT: [id number] ADM DATE: 06/18/18 AGE: 78 : 38 SEX: F ROOM/BED: D.2212 AUTHOR: CHRIS,DOC PHYSICIAN: REFERRING PHYSICIAN: TEN BERMUDEZ MD DATE OF SERVICE: 06/22/18 Discharge Plan Patient Name: SOPHIA MANNING Facility: [facility]:[place] : 1940 Planned Disposition: Home Anticipated Discharge Date: Discharge Date: Expected LOS: Initial Reviewer: [email or web address] Initial Review Date: 06/18/2018 Generated: 06/22/18 11:05 am Comments DCP- Discharge Planning Updated by [email or web address]: April Kat on 06/22/18 9:[address] Patient did not want home health, refusal form signed & placed in chart DCP- Discharge Planning Updated by [email or web address]: April Kta on 06/22/18 8:[address] Patient will be discharging home today, denies any needs. IMM served and explained. She stated that her son will be the one to take her home. CM will continue to follow and assist with dc planning as needed DCP- Discharge Planning Updated by [email or web address]: Christine Saldana on 06/18/18 5:[address] Patient Name: SOPHIA MANNING Admission Status: ER Accout number: [id number] Admission Date: 06-18-2018 : 1940 Admission Diagnosis: Attending: TEN BERMUDEZ Current LOS: 1 Anticipated DC Date: Planned Disposition: Home Primary Insurance: MEDICARE A & B Discharge Planning Comments: CM met with patient to complete initial dc planning assessment. CM educated patient on the CM role and verbal consent given by patient to complete assessment. Patient lives at [facility]. She reports she is independent with her ADL's and IADL's but she does go and eat the prepared meals. At discharge patient plans to return to her apartment and feels this is a safe discharge. CM discussed availability of home health, rehab services, and medical equipment. Patient denied known discharge needs at this time. CM will continue to follow and will assist as needed with dc plans/needs. Forepart Reducer: Christine Saldana DCPIA - Discharge Planning Initial Assessment Updated by [email or web address]: Christine Saldana on 06/18/18 6:22 pm * Is the patient Alert and Oriented? Yes * How many steps to enter\exit or inside your home? none * PCP Dr. Hernandez * Pharmacy [facility] * Preadmission Environment Independent [facility] Apartment * Facility Name [facility] - Recently moved there. * ADLs Independent * Equipment Cane * List name and contact numbers for known caregivers / representatives who currently or will assist patient after discharge: Manuelito Willams emelia - [phone] * Verbal permission to speak to the caregivers and representatives has been obtained from the patient. Yes * Community resources currently utilized None * Additional services required to return to the preadmission environment? No * Can the patient safely return to the preadmission environment? Yes * Has this patient been hospitalized within the prior 30 days at any hospital? No Coverage Notice Reviewer: [email or web address] Odilia Kat Notice Issued Date-Time: 06/22/2018 9:55 Notice Type: IM Discharge Notice Notice Delivered To: Patient Relationship to Patient: Stiff Leg Derrick Operator Name: Delivery Method: HAND - Hand Delivered Ana Days: Prior Verbal Notification: Recipient Understood Notice: Yes Recipient Signature: Yes Med Rec Note Co-signed by Attending: Coverage Notice Comment: Last DP export: 06/18/18 5:26 p Patient Name: SOPHIA MANNING Page [id number] at 1005 All edits/amendments must be made on the electronic document DICTATION DATE: 06/22/18 1004 BOBBIN HANDLER: JUAN 06/22/18 1004 RPT#: [id number] DC DATE: STATUS: ADM IN [facility] [address] [place] [address] END OF REPORT
--- NOTE | 2018-06-22 10:19 | NUR ---
PATIENT RESTING IN BED. DENIES PAIN. DENIES FURTHER NEEDS
[2018-06-22] MEDS ORDERED: TESSALON PERLE100 MG PO (11:54)
[2018-06-22] MEDS ORDERED: CLARITIN 10 MG10 MG PO (11:54)
--- NOTE | 2018-06-22 12:16 | NUR ---
MEDICATION GIVEN WITHOUT DIFFICULTY. DENIES FURTHER NEEDS. WILL CONTINUE TO MONITOR.
--- NOTE | 2018-06-22 12:27 | NUR ---
IV REMOVED TO RIGHT HAND. TIP INTACT. PATIENT AND FAMILY REQUEST WAIT FOR SON TO GET TO HOSPITAL TO GO OVER DISCHARGE PAPERWORK TOGETHER.
--- NOTE | 2018-06-22 12:52 | NUR ---
TELEMETRY REMOVED AND RETURNED. PATIENT DRESSED AND READY FOR DISCHARGE
--- NOTE | 2018-06-22 13:48 | NUR ---
DICHARGE EDUCATION PROVIDED BOTH WRITTEN AND VERBAL WITH SON AT BEDSIDE. PATIENT AND SON VERBALIZED UNDERSTANDING. DENIED FURTHER QUESTIONS. DENIED FURTHER NEED. ALL HOME MEDICATIONS RETURNED TO PATIENT ON DISHCARGE. PATIENT DISCHARGED HOME WITH SON WITH ALL BELONGINGS.
--- NOTE | 2018-06-23 12:33 | MORECARE ---
CASE MANAGEMENT DISCHARGE SUMMARY PATIENT: SOPHIA MANNING UNIT: [id number] ADM DATE: 06/18/18 AGE: 78 : 38 SEX: F ROOM/BED: D.2212 AUTHOR: CHRIS,DOC PHYSICIAN: REFERRING PHYSICIAN: TEN BERMUDEZ MD DATE OF SERVICE: 06/23/18 Discharge Plan Patient Name: SOPHIA MANNING Facility: [facility]:[place] : 1940 Planned Disposition: Home Anticipated Discharge Date: Discharge Date: 06/22/2018 Expected LOS: 0 Initial Reviewer: [email or web address] Initial Review Date: 06/18/2018 Generated: 06/23/18 1:33 pm Comments DCP- Discharge Planning Updated by [email or web address]: April Kat on 06/22/18 9:[address] Patient did not want home health, refusal form signed & placed in chart DCP- Discharge Planning Updated by [email or web address]: April Kat on 06/22/18 8:[address] Patient will be discharging home today, denies any needs. IMM served and explained. She stated that her son will be the one to take her home. CM will continue to follow and assist with dc planning as needed DCP- Discharge Planning Updated by [email or web address]: Christine Saldana on 06/18/18 5:[address] Patient Name: SOPHIA MANNING Admission Status: ER Accout number: [id number] Admission Date: 06-18-2018 : 1940 Admission Diagnosis: Attending: TEN BERMUDEZ Current LOS: 1 Anticipated DC Date: Planned Disposition: Home Primary Insurance: MEDICARE A & B Discharge Planning Comments: CM met with patient to complete initial dc planning assessment. CM educated patient on the CM role and verbal consent given by patient to complete assessment. Patient lives at [facility]. She reports she is independent with her ADL's and IADL's but she does go and eat the prepared meals. At discharge patient plans to return to her apartment and feels this is a safe discharge. CM discussed availability of home health, rehab services, and medical equipment. Patient denied known discharge needs at this time. CM will continue to follow and will assist as needed with dc plans/needs. House Mover: Christine Saldana DCPIA - Discharge Planning Initial Assessment Updated by [email or web address]: Christine Saldana on 06/18/18 6:22 pm * Is the patient Alert and Oriented? Yes * How many steps to enter\exit or inside your home? none * PCP Dr. Hernandez * Pharmacy [facility] * Preadmission Environment Independent [facility] Apartment * Facility Name [facility] - Recently moved there. * ADLs Independent * Equipment Cane * List name and contact numbers for known caregivers / representatives who currently or will assist patient after discharge: Manuelito Willams emelia - [phone] * Verbal permission to speak to the caregivers and representatives has been obtained from the patient. Yes * Community resources currently utilized None * Additional services required to return to the preadmission environment? No * Can the patient safely return to the preadmission environment? Yes * Has this patient been hospitalized within the prior 30 days at any hospital? No Coverage Notice Reviewer: [email or web address] Odilia Kat Notice Issued Date-Time: 06/22/2018 9:55 Notice Type: IM Discharge Notice Notice Delivered To: Patient Relationship to Patient: Spray Crew Name: Delivery Method: HAND - Hand Delivered Ana Days: Prior Verbal Notification: Recipient Understood Notice: Yes Recipient Signature: Yes Med Rec Note Co-signed by Attending: Coverage Notice Comment: Last DP export: 06/22/18 9:05 am Patient Name: SOPHIA MANNING Page [id number] at 1233 All edits/amendments must be made on the electronic document DICTATION DATE: 06/23/18 1233 FATS AND OILS LOADER: JUAN 06/23/18 1233 RPT#: [id number] DC DATE:06/22/18 STATUS: DIS IN [facility] [address] [place] [address] END OF REPORT
== END 2018-06-22 13:50 | disposition home or self-care (01) | DRG 378 ==
LOC: D.ER 10:52 → D.MS 14:50 → D.EDHOLD 14:50 → D.ICU 15:23 → D.MS 06-19 14:15
PROVIDERS: Family Medicine; Internal Medicine Gastroenterology; ADMIT Internal Medicine Nephrology; ATTEND Internal Medicine Nephrology
PROC: 0DJ08ZZ Inspection of Upper Intestinal Tract, Via Natural or Artificial Opening Endoscopic (ICD-10-PCS; principal; 2018-06-18 17:41)
PROC: 0DJD8ZZ Inspection of Lower Intestinal Tract, Via Natural or Artificial Opening Endoscopic (ICD-10-PCS; 2018-06-21)
DX: K92.2 Gastrointestinal hemorrhage, unspecified (principal); E87.1 Hypo-osmolality and hyponatremia; N17.9 Acute kidney failure, unspecified; E44.0 Moderate protein-calorie malnutrition; Z68.1 Body mass index [BMI] 19.9 or less, adult; K29.71 Gastritis, unspecified, with bleeding; D64.9 Anemia, unspecified; E86.0 Dehydration; I10 Essential (primary) hypertension; I25.10 Atherosclerotic heart disease of native coronary artery without angina pectoris; E87.6 Hypokalemia; K20.9 Esophagitis, unspecified; K57.91 Diverticulosis of intestine, part unspecified, without perforation or abscess with bleeding

== ENCOUNTER 2018-07-11 18:39 | Inpatient (IN) | payer MEDICARE ==
[~2018-07-11] VITALS: Ht 157.5 cm; Wt 46.5 kg
--- NOTE | ~2018-07-11 | EC ---
PATIENT:SOPHIA MANNING DATE OF SERVICE: 07/13/18 SEX: F MEDICAL RECORD: [id number] DATE OF : [birth year] LOCATION:D.M2 D.213 AGE OF PATIENT: 78 ADMISSION DATE: 07/13/18 REFERRING PHYSICIAN: INTERPRETING PHYSICIAN: ZAY HANDLEY MD ECHOCARDIOGRAM REPORT ECHO CHARGES 4 ECHO COMPLETE Date: 07/13/18 CLINICAL DIAGNOSIS: PALPITATIONS ECHOCARDIOGRAPHIC MEASUREMENTS (adult normal given) AC root (d.<3.7cm) 3.2 cm LV Septum d (<1.2 cm> 1.2 cm Valve Excursion 1.5 cm LV Septum (systole) 1.5 cm Left Atria (s.<4.0cm> 4.7 cm LVPW d(<1.2cm) 1.2 cm RV (d.<2.3cm) 1.9 cm LVPW (sytole) 1.8 cm LV diastole(<5.6CM) 4.9 cm MV E-F(>70mm/sec) cm LV systole 3.0 cm LVOT Diameter 1.6 cm MV exc.(>10mm) cm Est.ejection fraction (50-75%) % DOPPLER: LVIT cm/sec A 136 cm/sec E 107 cm/sec LA cm/sec RVSP 74.3 mmHg LVOT 115 cm/sec AOP1/2T m/s Asc. Ao 236 cm/sec RVOT 60.0 cm/sec RA cm/sec PA 71.0 cm/sec AV Gradient Peak 22.3 mmHg AV Mean 10.1 mmHg AV Area 1.0 cm MV Gradient Peak 6.8 mmHg MV Mean 3.2 mmHg MV Area cm COMMENTS: Replacer: Jj [email or web address] Instrument Processing Tech: 1 Dr. Handley TAPE# PACS Pericardial Effusion N DATE OF SERVICE: 07/13/2018 ECHOCARDIOGRAM DATE OF SERVICE: 07/13/2018 FINDINGS: 1. Left ventricular chamber size is within normal limits. Left ventricular systolic function is normal. Overall ejection fraction estimated at 55%. 2. Left atrium is enlarged at 4.7 cm. Right atrium and right ventricular ECHOCARDIOGRAM REPORT [id number] SOPHIA MANNING chamber sizes are within normal limits. 3. Valvular structures have normal structure and motion. 4. Doppler interrogation reveals moderate mitral regurgitation, severe tricuspid regurgitation, no other valvular insufficiency or stenosis. Pulmonary systolic pressure is elevated, estimated at 74 mmHg. 5. No evidence of pericardial effusion or left ventricular thrombus. TRANSINT:[id number] Voice Confirmation ID: [id number] DOCUMENT ID: [id number] ZAY HANDLEY MD CC: [id number] DICTATION DATE: 07/14/18402 IT OPERATIONS ANALYST: 07/14/18 041 ADM IN [facility] [address] [place] [address]
--- NOTE | ~2018-07-11 | HEMODYNAMI ---
PATIENT:SOPHIA MANNING MEDICAL RECORD: [id number] : 36 LOCATION:[facility] D.2131 ADMISSION DATE: 07/13/18 Generatedon:07/13/201816:54 Patient name: SOPHIA MANNING Patient #: [id number] SSN: : 1940 Date of study: 07/13/2018 Page: Of Hemodynamic Procedure Report Patient Data Patient Demographics Procedure consent was obtained First Name: SOPHIA Gender: Female Last Name: NIGEL : 1940 [facility] Initial: Gypsy Age: 78 year(s) Patient #: [id number] Race: Unknown Additional ID: [id number] Contact details Address: [address] [place] [address] [id number] State: [place]: [facility] [place] Zip code: [address] Past Medical History Allergies Allergen Reaction Date Comments Reported Other allergy 12/03/2016 amoxicillin, PCN Other allergy 07/13/2018 AMOXICILLIN, PCN Admission Admission Data Admission Date: 07/13/2018 Admission Time: 11:52 Room #: D.2131 Procedure Procedure Types Cath Procedure Diagnostic Procedure [facility] w/Coronaries PCI Procedure PTCA PTCA Initial Procedure Description Procedure Date Procedure Date: 07/13/2018 Procedure Start Time: 16:34 Procedure End Time: 16:48 Procedure Staff Name Function Alonzo Mc RT Monitor Angelika Aguilar RN Nurse Damien Wilder MD Performing Physician Claudia Kam RT Monitor Bonilla Quinones RT Monitor Procedure Data Cath Procedure Fluoroscopy Diagnostic fluoroscopy Total fluoroscopy Time: 2.1 time: 2.1 min min Diagnostic fluoroscopy Total fluoroscopy dose: 240 dose: 240 mGy mGy Contrast Material Contrast Material Type Amount (ml) Isovue 300 96 Entry Location Entry Primary Successful Side Size Upsize Upsize Entry Closure Succes sful Closure Location (Fr) 1 (Fr) 2 (Fr) Remarks Device Remarks Femoral Right 5 Fr 6 Fr Exoseal artery Short Estimated blood loss: 10 ml Diagnostic catheters Device Type Used For End Catheter Placement MULTIPACK JL 4.0 5Fr Procedure catheter MULTIPACK 3DRC 5Fr Procedure catheter MULTIPACK Pigtail 5 Fr Procedure catheter Procedure Complications No complications Procedure Medications Medication Administration Route Dosage 0.9% NaCl I.V. 100 ml/hr Oxygen etCO2 Nasal cannula 2 l/min Lidocaine 2% added to field 20 Heparin Flush Bag added to field 2 bags (1000units/500ml NS) Versed I.V. 1 mg Fentanyl I.V. 50 mcg Heparin Bolus I.V. 5000 units Plavix P.O. 75 mg Hemodynamics Rest Heart Rate: 77 (bpm) Pressure Samples Time Site Value (mmHg) Purpose Heart Use Rate(bpm) 16:39 LV 173/1,11 EDP 78 Gradients Valve Time Site Site Mean SEP/DFP Peak To Heart Use 1 2 (mmHg) (sec/min) Peak Rate (mmHg) (bpm) Aortic 16:39 LV AO 79 Snapshots Pre Cath Intra NCS Post Cath Vital Signs Time Heart Resp SPO2 etCO2 NIBP (mmHg) Rhythm Pain Sedation Rate (ipm) (%) (mmHg) Status Level (bpm) 16:16:51 75 19 100 32.1 188/89(128) NSR 0 (11) 10(A) , No pain 16:22:15 77 18 99 25.4 165/88(136) NSR 0 (11) 10(A) , No pain 16:26:35 79 18 99 30.6 172/90(130) NSR 0 (11) 10(A) , No pain 16:30:59 93 17 98 30.7 166/86(132) NSR 0 (11) 10(A) , No pain 16:35:17 74 17 98 37.4 167/90(131) NSR 0 (11) 9(A) , No pain 16:39:40 78 14 99 38.6 152/81(138) NSR 0 (11) 9(A) , No pain 16:43:54 80 14 98 40.6 161/88(134) NSR 0 (11) 9(A) , No pain 16:48:22 80 18 99 38.9 154/130(148) NSR 0 (11) 10(A) , No pain Medications Time Medication Route Dose Verified Delivered Reason Notes Effectiveness by by 16:15:59 0.9% NaCl I.V. 100 Damien Carney used for ml/hr [facility] Aguilar procedure MD JACOBS 16:16:07 Oxygen etCO2 2 Damien Carney used for Nasal l/min [facility] Aguilar procedure cannula MD JACOBS 16:16:13 Lidocaine 2% added 20ml Damien Quezada for local to vial [facility] anesthetic field MD LEMUS 16:16:17 Heparin Flush added 2 Damien Quezada used for Bag to bags [place] [facility] procedure (1000units/500ml field MD LEMUS NS) 16:32:20 Versed I.V. 1 mg Damien Carney for sedation [facility] Ted Aguilar MD, RN 16:32:26 Fentanyl I.V. 50 Damien Esteveza for sedation mcg [facility] Ted Aguilar MD, RN 16:44:06 Heparin Bolus I.V. 5000 Damien Carney for verif ied units [place] anticoagulation with Dr. LEMUS RN [place] 16:44:22 Plavix P.O. 75 mg Damien Carney for [place] antiplatelet MD JACOBS therapy Procedure Log Time Note 15:54:43 Diagnostic Cath Status : Elective 15:55:53 Angelika Aguilar RN sent for patient. Start room use. 15:55:54 Time tracking: Regular hours (M-F 7:00 - 5:00) 15:55:58 Plan of Care:Hemodynamics will remain stable., Cardiac rhythm will remain stable., Comfort level will be maintained., Respiratory function will remain adequate., Patient/ family verbilizes understanding of procedure., Procedure tolerated without complication., Recovers from procedure without complications.. 16:07:29 Patient received from PCU to [facility] 1 Alert and oriented. Tansferred to table in Supine position. 16:07:30 Warm blankets applied, and patricia hugger turned on for patient comfort. 16:07:30 Correct patient and procedure confirmed by team. 16:07:31 Signed procedure consent form obtained from patient. 16:07:33 ECG and BP/O2 sat monitors applied to patient. 16:07:34 Full Disclosure recording started 16:15:40 Vital chart was started 16:15:59 0.9% NaCl 100 ml/hr I.V. was administered by Angelika Aguilar RN; used for procedure; 16:16:07 Oxygen 2 l/min etCO2 Nasal cannula was administered by Angelika Aguilar RN; used for procedure; 16:16:13 Lidocaine 2% 20ml vial added to field was administered by Damien Wilder MD; for local anesthetic; 16:16:17 Heparin Flush Bag (1000units/500ml NS) 2 bags added to field was administered by Damien Wilder MD; used for procedure; 16:26:12 Baseline sample Acquired. 16:26:15 Rhythm: sinus rhythm 16:26:17 Pre-procedure instructions explained to patient. 16:26:18 Pre-op teaching completed and patient verbalized understanding. 16:26:19 Family in patients room. 16:26:21 Patient NPO since Midnight. 16:26:35 Patient allergic to Other allergyAMOXICILLIN, PCN 16:26:36 Is patient on blood thinner?Yes 16:27:02 PRE LOADED ON PLAVIX 16:27:04 Patient diabetic? No. 16:27:07 Previous problem with sedation/anesthesia? No ? 16:27:09 Snore? Yes 16:27:10 Sleep apnea? No 16:27:11 Deviated septum? No 16:27:12 Opens mouth fully? Yes 16:27:13 Sticks out tongue? Yes 16:27:17 Airway obstruction? No ? 16:27:19 Dentures? No ? 16:27:24 Pre procedure: right dorsailis pedis pulse 1+ Palpable, but thready & weak; easily obliterated 16:27:27 Patient pain scale 0/10 ?. 16:27:30 IV patent on arrival in left hand with 0.9% NaCl at [facility]. 16:27:32 Lab results completed and on chart. 16:27:35 Right groin area was prepped with chlora-prep and draped in sterile fashion 16:27:36 Alarms reviewed by R. N. 16:27:36 Sharps counted by scrub and verified by R.N. 16:27:39 Use device set Femoral Dx 16:27:40 ACIST Syringe (93852) opened to sterile field. 16:27:40 Bag Decanter () opened to sterile field. 16:28:02 ACIST Hand Control (53427) opened to sterile field. 16:28:03 ACIST Manifold (77299) opened to sterile field. 16:28:03 Tegaderm 4 x 4 (1626W) opened to sterile field. 16:28:06 Medline Cath Pack ([id number]) opened to sterile field. 16:28:07 DIAGNOSTIC WIRE .035 260cm J wire (801578) opened to sterile field. 16:28:07 DIAGNOSTIC Multipack 5Fr catheter set (OM2197) opened to sterile field. 16:28:08 SHEATH 5FR Milladore (LFR464) opened to sterile field. 16::51 --------ALL STOP TIME OUT------ 16::51 Final Timeout: patient, procedure, and site verified with staff and physician. All members of the team are in agreement. 16:28:52 Right groin site verified by team. 16:28:59 Maximum allowable Isovue 300 dose 300ml. Physician notified. (300ml for normal creatinines. For patients with creatinine of 1.7 or higher multiply weight(kg) x 5 divided by creatinine.) 16:29:04 Fire Safety Assessment: A--An alcohol-based skin anteseptic being used preoperatively., C--Open oxygen or nitrous oxide is being used., D--An ESU, laser, or fiber-optic light is being used. 16:29:09 Physical assessment completed. ASA score P 2 - A patient with mild systemic disease as per Damien Widler MD. 16:29:11 Sedation plan: IV Moderate Sedation Medication:Versed, Fentanyl 16:30:49 Zero performed for pressure channel P1 16:32:20 Versed 1 mg I.V. was administered by Angelika Aguilar RN; for sedation; 16:32:26 Fentanyl 50 mcg I.V. was administered by Angelika Aguilar RN; for sedation; 16:34:18 Procedure started. 16:34:22 Local anesthetic to right femoral artery with Lidocaine 2% by Damien Wilder MD.INITIAL ACCESS ONLY 16:35:08 A 5 Fr sheath was inserted into the Right Femoral artery 16:35:21 A MULTIPACK JL 4.0 5Fr catheter was advanced over the wire and used for Procedure. 16:36:43 LCA angiography performed. 16:36:44 Catheter removed. 16:37:00 A MULTIPACK 3DRC 5Fr catheter was advanced over the wire and used for Procedure. 16:38:08 RCA angiography performed. 16:38:10 Catheter removed. 16:38:28 A MULTIPACK Pigtail 5 Fr catheter was advanced over the wire and used for Procedure. 16:38:53 LV gram done using RADFORD 16:38:56 Injector settings: Ml/sec: 10, Volume: 20, 16:39:29 LV hemodynamics recorded. 16:39:30 Catheter removed. 16:40:12 SHEATH 6FR Mill[place] (WNR995) opened to sterile field. 16:40:14 WHISPER 300cm guide wire ([id number]) opened to sterile field. 16:40:22 GUIDE 6FR HS I SH catheter ([id number]) opened to sterile field. 16:40:31 Sheath upsized to a 6 Fr Short. 16:40:45 6 Fr HS 1 SH guide catheter was inserted over the wire 16:42:17 WHISPER 300 wire advanced. 16:43:05 INFLATOR Merit BasixCompak ([id number]) opened to sterile field. 16:43:30 Wire advanced across lesion. 16:44:06 Heparin Bolus 5000 units I.V. was administered by Angelika Aguilar RN; for anticoagulation; verified with Dr. Dozier 16:44:10 Inflate balloon Inflation number: 1 A EMERGE OTW 3.0 x 15 balloon ([id number]) was prepped and advanced across the Mid RCA, then inflated to 14 FABIO for 0:25 (min:sec). 16:44:22 Plavix 75 mg P.O. was administered by Angelika Aguilar RN; for antiplatelet therapy; 16:45:26 Balloon removed over the wire. 16:45:27 Wire removed. 16:45:28 Guide catheter removed. 16:46:02 EXOSEAL 6Fr (EX600) opened to sterile field. 16:46:15 Sheath removed intact; hemostasis achieved with Exoseal to the Right Femoral artery. 16:46:18 Procedure ended.(Physican Out) 16:47:03 Fluoroscopy time 02.10 minutes. 16:47:07 Fluoroscopy dose: 240 mGy 16:47:07 Flurop Dose total: 240 16:47:10 Contrast amount:Isovue 300 96ml. 16:47:12 Sharps counted by scrub and verified by R.N. 16:47:15 Post-op/insertion site Right Femoral artery dressed using a 4 x 4 and Tegaderm. 16:47:21 Post-procedure physical assessment completed. ASA score P 2 - A patient with mild systemic disease as per Damien Wilder MD. 16:47:25 Post procedure rhythm: unchanged. 16:47:27 Estimated blood loss: 10 ml 16:47:28 Post procedure instruction explained to patient.Patient verbalizes understanding. 16:47:29 Patient needs reinforcement of post procedure teaching. 16:47:50 Procedure type changed to Cath procedure, Diagnostic procedure, LHC, LHC w/Coronaries, PCI procedure, PTCA, PTCA Initial 16:48:35 Procedure and supply charges have been captured, reviewed, submitted and are correct. 16:48:37 Procedure Complication : No complications 16:48:42 Vital chart was stopped 16:48:43 See physician's report for complete and final results. 16:48:45 Report given to Med II. 16:48:48 Patient transfered to Med II with Bed. 16:48:50 Procedure ended. 16:48:50 Full Disclosure recording stopped 16:48:53 End room use (Document Last) 16:54:05 FEMSTOP Gold ([id number]) opened to sterile field. 16:54:12 Femstop placed over the right femoral artery at 150 mmHg. Hemostasis achieved. Intervention Summary Intervention Notes Time ActionType Lesion and Equipment Action# Pressure Duration Attributes Used 16:44:10 Inflate Mid RCA EMERGE OTW 1 14 00:25 balloon 3.0 x 15 balloon ([id number]) Device Usage Item Name Manufacture Quantity Catalog Number Hospital Part Current Min imal Lot# / Charge Number Stock Stock Serial# Code ACIST Acist 1 19465 503863 482844 056239 20 Syringe Medical (75207) Systems Inc Bag Decanter Microtek 1 927023 38550 782808 5 () Medical Inc. ACIST Hand Acist 1 04845 628492 226107 331179 5 Control Medical (62489) Systems Inc ACIST Acist 1 90933 438930 312874 266317 5 Manifold Medical (53402) Systems Inc Tegaderm 4 x 3M 1 1626W 568378 907197 674034 5 4 (1626W) Medline Cath Medline 1 [id number] 819512 43434 285444 5 Pack ([id number]) DIAGNOSTIC St Yair 1 925941 127753 574575 539836 30 WIRE .035 260cm J wire (809837) DIAGNOSTIC Cardinal 1 PH3083 858651 74694 748220 30 Multipack Health 5Fr catheter set (LN3840) SHEATH 5FR Terumo 1 PJN522 855527 845542 456940 5 Milladore (JJG551) MULTIPACK JL Cardinal 1 446630 5 4.0 5Fr Health catheter MULTIPACK Cardinal 1 636123 5 3DRC 5Fr Health catheter MULTIPACK Cardinal 1 918743 5 Pigtail 5 Fr Health catheter SHEATH 6FR Terumo 1 PRZ007 752907 835700 119766 40 Milladore (DYM566) WHISPER Neal 1 [id number] 777525 740088 156268 5 300cm guide Vascular wire ([id number]) GUIDE 6FR HS Medtronic 1 [id number] 069364 84405 699661 1 I SH catheter ([id number]) INFLATOR Merit 1 NN8235 340588 465092 532230 15 [facility] Medical BasixCompak (RQ9745) EMERGE OTW [place] 1 [id number] 530312 470798 465723 5 [id number] 3.0 x 15 Scientific balloon ([id number]) EXOSEAL 6Fr Cardinal 1 EX600 943834 406349 919838 10 (EX600) Health FEMSTOP Gold St Yair 1 P15058 658540 669567 912546 5 (Y17730) Signature Audit [place] Stage Time Signature Unsigned Intra-Procedure 07/13/2018 Claudia Kam 4:54:37 PM RT(R) Signatures Monitor : Alonzo Mc RT Signature : Date : Time : Monitor : Claudia Kam Signature : RT Date : Time : Monitor : Bonilla Quinones RT Signature : Date : Time : [place] [id number] [place] [address]
[~2018-07-11 18:39] MED LIST changes: +BYSTOLIC5 MG PO; +CLARITIN 10 MG10 MG PO; +EFFEXOR75 MG PO; +TESSALON PERLE100 MG PO; +ZOCOR20 MG PO; +ZOLOFT100 MG PO
[2018-07-11 19:11] LABS: BASOPHILS 0.5 % (0-2); EOSINOPHILS 1.9 % (0-7); HEMATOCRIT 31.4 % (36.0-48.0); HEMOGLOBIN 10.8 g/dL (12-16); IMMATURE GRANULOCYTES 0.2 % (0-5); LYMPHOCYTES 19.8 % (15-50); MCH 29.9 pg (26.0-34.0); MCHC 34.4 g/dL (31.0-37.0); MEAN PLATELET VOLUME 9.8 fL (7.4-10.4); MONOCYTES 8.9 % (2-11); NEUTROPHILS 68.7 % (40-80); RBC 3.61 10x6/uL (4.00-5.40); RDW 14.5 % (11.5-14.5); WBC 6.2 10x3/uL (4.8-10.8)
[2018-07-11 19:12] LABS: PLATELET COUNT 225 10x3/uL (130-400)
[2018-07-11 19:25] LABS: APTT 23.2 SECONDS (22.8-39.4); INR 1.06 (0.85-1.17); PROTIME 13.3 SECONDS (11.6-15.0)
[2018-07-11 19:32] LABS: ALBUMIN 3.7 g/dL (3.4-5.0); ALKALINE PHOSPHATASE 69 U/L (46-116); ALT (SGPT) 24 U/L (10-68); BILIRUBIN - TOTAL 0.43 mg/dL (0.2-1.3); CALC OSMOLALITY 272 mosm/kg (275-300); CALCIUM 9.4 mg/dL (8.5-10.1); CARBON DIOXIDE 23.8 mmol/L (21.0-32.0); CHLORIDE - SERUM 99 mmol/L (98-107); CREATININE - SERUM 0.9 mg/dL (0.6-1.3); GLUCOSE 116 mg/dL (74-106); POTASSIUM - SERUM 3.9 mmol/L (3.5-5.1); SODIUM 135 mmol/L (136-145); UREA NITROGEN 19 mg/dL (7-18); eGFR NON AFRICAN AMERICAN 64 mL/min (90-120)
[2018-07-11 19:44] LABS: CKMB 1.5 U/L (0.0-3.6); CREATINE KINASE 100 UL (21-215); MAGNESIUM - SERUM 2.1 mg/dL (1.8-2.4); PRO BNP 587 pg/mL (0-450); TROPONIN-I < 0.017 ng/mL (0.000-0.060)
[2018-07-11 20:31] VITALS: BP 181/93
[2018-07-11 21:04] LABS: COLOR STRAW (YELLOW)
[2018-07-11 21:05] LABS: APPEARANCE CLEAR (CLEAR); BILIRUBIN NEGATIVE (NEGATIVE); GLUCOSE NEGATIVE (NEGATIVE); KETONE SMALL mg/dL (NEGATIVE); NITRITE NEGATIVE (NEGATIVE); PROTEIN 2+ mg/dL (NEGATIVE); UROBILINOGEN NORMAL (NORMAL)
[2018-07-11 21:16] VITALS: BP 210/102
--- NOTE | 2018-07-11 21:53 | NUR ---
RECEIVED REPORT FROM ER, PT IS A&O X4, PT DENIES ANY NEEDS AT THIS TIME, BED IS LOW, SRX 2, CALL LIGHT IN REACH, WILL CONTINUE PLAN OF CARE
[2018-07-12] VITALS (7 sets, daily range): BP systolic 120–155; BP diastolic 60–75; Ht 157.5 cm; Wt 46.5 kg
--- NOTE | 2018-07-12 04:27 | NUR ---
I have reviewed this patient and I concur with the Shift Assessment completed by the Licensed Practical Nurse today this shift.
--- NOTE | 2018-07-12 07:24 | NUR ---
REPORT RECEIVED. WILL CONTINUE WITH POC. PT CURRENTLY LYING ON RIGHT SIDE. CALL LIGHT W/I REACH. PT IS RESTING AT THE MOMENT. RR EVEN AND UNLABORED ON RA. L.WRIST PIV IS SALINE LOCKED. NO S/S OF DISTRESS NOTED. PT DENIES ANY NEEDS. WILL CTM.
--- NOTE | 2018-07-12 11:06 | NUR ---
I have reviewed this patient and I concur with the Shift Assessment completed by the Licensed Practical Nurse today this shift.
[2018-07-12 17:25] LABS: % SATURATION 12 % (15-55); IRON 38 ug/dl (35-150); TOTAL IRON BIND CAPACITY 311 ug/dl (260-445); UNSAT IRON BIND CAPACITY 273 ug/dl (150-375)
[2018-07-12 17:43] LABS: CKMB 4.3 U/L (0.0-3.6); CREATINE KINASE 130 UL (21-215)
[2018-07-12 17:46] LABS: TROPONIN-I 2.319 ng/mL (0.000-0.060)
--- NOTE | 2018-07-12 17:56 | NUR ---
NOTIFIED DR.ST SAVAGE THAT THE PT TROPONIN WAS 2.319. HE ORDERED 300MG PLAVIX AND NPO AFTER BREAKFAST. WILL PLACE ORDER. WILL CTM.
--- NOTE | 2018-07-12 19:30 | NUR ---
RECEIVED REPORT, WILL ASSUME CARE OF PT, DENIES ANY NEEDS AT THIS TIME, BED IS LOW, SRX2, CALL LIGHT IN REACH, WILL CONTINUE PLAN OF CARE
[2018-07-12 23:43] LABS: CKMB 2.9 U/L (0.0-3.6); CREATINE KINASE 111 UL (21-215)
[2018-07-12 23:50] LABS: TROPONIN-I 1.885 ng/mL (0.000-0.060)
[2018-07-13] VITALS: BP 155/89
--- NOTE | 2018-07-13 03:49 | NUR ---
I have reviewed this patient and I concur with the Shift Assessment completed by the Licensed Practical Nurse today this shift.
[2018-07-13 04:00] VITALS: BP 146/85
[2018-07-13 06:22] LABS: CKMB 2.2 U/L (0.0-3.6); CREATINE KINASE 93 UL (21-215)
[2018-07-13 07:04] LABS: TROPONIN-I 1.568 ng/mL (0.000-0.060)
--- NOTE | 2018-07-13 07:31 | NUR ---
AM ROUNDS- PT RESTING COMFORTABLY IN BED, HOT TOP LINER AT BEDSIDE FIXING HER HEART MONITOR. EXECUTIVE WELLNESS PROGRAMS DIRECTOR CLEANING ROOM. PT A/O X4, RESP EVEN AND NONLABORED ON RA. LT WRIST IV SL. URINE SAMPLE COLLECTED AND TAKEN TO LAB. PT NPO UNTIL SEEN BY CARDIO. PT DENIES ANY NEEDS AT THIS TIME. CALL LIGHT IN REACH, NAD NOTED,W ILL CONTINUE PLAN OF CARE.
[2018-07-13 08:46] LABS: BASOPHILS 0.3 % (0-2); EOSINOPHILS 5.1 % (0-7); HEMATOCRIT 27.7 % (36.0-48.0); HEMOGLOBIN 9.3 g/dL (12-16); IMMATURE GRANULOCYTES 0.2 % (0-5); LYMPHOCYTES 21.4 % (15-50); MCH 29.2 pg (26.0-34.0); MCHC 33.6 g/dL (31.0-37.0); MCV 87.1 fL (80.0-100.0); MEAN PLATELET VOLUME 10.3 fL (7.4-10.4); MONOCYTES 9.8 % (2-11); NEUTROPHILS 63.2 % (40-80); PLATELET COUNT 228 10x3/uL (130-400); RBC 3.18 10x6/uL (4.00-5.40); RDW 14.6 % (11.5-14.5); WBC 6.1 10x3/uL (4.8-10.8)
[2018-07-13 08:48] LABS: ANION GAP 10.9 mmol/L (8-16); CALCIUM 8.7 mg/dL (8.5-10.1); CREATININE - SERUM 0.8 mg/dL (0.6-1.3); POTASSIUM - SERUM 3.9 mmol/L (3.5-5.1)
[2018-07-13 08:57] VITALS: BP 148/84
--- NOTE | 2018-07-13 08:57 | NUR ---
AM MEDS GIVEN AT THIS TIME. COSENTS SIGNED BY PT AND PLACED ON CHART. PT EATING BREAKFAST, DENIES ANY NEEDS AT THIS TIME. CALL LIGHT IN REACH, NAD NOTED, WILL CONTINUE TO MONITOR.
--- NOTE | 2018-07-13 11:50 | NUR ---
PT RESTING COMFORTABLY IN BED, DENIES ANY NEEDS AT THIS TIME. CALL LIGHT IN REACH, NAD NOTED, WILL CONTIUE TO MONITOR.
[2018-07-13 11:59] VITALS: BP 140/68
--- NOTE | 2018-07-13 13:46 | NUR ---
WENT TO FLUSH PT'S IV AND IV NOT WORKING. NEW 20G IV STARTED TO RT FA X1 STICK. PT TOLERATED WELL. PT ATE LUNCH EVEN THOUGH SHE WAS TOLD TO BE NPO AFTER BREAKFAST. CONSTRUCTION REPRESENTATIVE NOTIFIED. PT WILL BE MOVED TO LAST CASE, INFOMRED PT NOT TO EAT OR DRINK ANYTHING ELSE UNTIL THE PROCEDURE IS DONE.
--- NOTE | 2018-07-13 15:03 | NUR ---
PRE-OP MEDS GIVEN AT THIS TIME. PT EMPTIED HER BLADDER AT THIS TIME.
[2018-07-13 16:11] VITALS: BP 146/85
--- NOTE | 2018-07-13 17:00 | NUR ---
RECEIVED PT BACK TO ROOM 2132. PT A/OX4. BP A LITTLE HIGH AT 190/85. FEMSTOP NOTED TO RT GROIN, NO ACTIVE BLEEDING NOTED OR SIGNS OF HEMATOMA. INSTRUCTED PT THAT SHE CANNOT SIT UP UNTIL 9PM. WILL ORDER PT FINGER FOODS FOR DINNER. PT DENIES ANY NEEDS AT THIS TIME. CALL LIGHT IN REACH, NAD NOTED, WILL CONTINUE TO MONITOR.
--- NOTE | 2018-07-13 17:30 | NUR ---
10MG OF APRESOLINE GIVEN FOR BP OF 190/86.
--- NOTE | 2018-07-13 18:29 | NUR ---
NO CHANGES TO RT GROIN FROM PREVIOUS ASSESSMENT. FEMORAL PULSE PALPABLE. PRESSURE FROM HEMSTOP RELEASED, FEMSTOP STILL IN PLACE FOR PRECAUTION. PT RESTING COMFORTABLY, DENIES ANY NEEDS AT THIS TIME. CALL LIGHT IN REACH, NAD NOTED.
[2018-07-13 20:00] VITALS: BP 142/73
--- NOTE | 2018-07-13 21:20 | NUR ---
HS MEDS GIVEN WITH FRESH ICE WATER. UP WITH ASSIST TO BR. NO SWELLING OR BLEEDING NOTED TO RIGHT GROIN.
[2018-07-14 00:30] VITALS: BP 151/77
--- NOTE | 2018-07-14 01:59 | NUR ---
NOTIFIED BY MT THAT PT HAD A RUN OF V TACH, ENTERED ROOM, PT IN BED RESTING, ASYMPTOMATIC, PT STATES THAT SHE FEELS FINE.
--- NOTE | 2018-07-14 04:10 | NUR ---
I have reviewed this patient and I concur with the Shift Assessment completed by the Licensed Practical Nurse today this shift.
[2018-07-14 05:00] VITALS: BP 137/69
--- NOTE | 2018-07-14 07:15 | NUR ---
PT UP AD SIVA TO BATHROOM. WHEN PT GOT BACK IN BED, RT GROIN CHECKED, NO SIGNS OF BLEEDING OR HEMATOMA NOTED. PT A/O X4, RESP EVEN AND NONLABORED ON RA. RT FA IV SL. MONITOR SHOWING SR 76. PT DENIES ANY NEEDS AT THIS TIME. CALL LIGHT IN REACH, NAD NOTED, WILL CONTINUE PLAN OF CARE.
[2018-07-14 08:39] VITALS: BP 157/79
[2018-07-14 11:13] LABS: FOLATE (FOLIC ACID) - SERUM 18.3 ng/mL (>3.0)
[2018-07-14] MEDS ORDERED: PLAVIX75 MG PO (11:20)
[2018-07-14 11:51] VITALS: BP 157/99
--- NOTE | 2018-07-14 12:45 | NUR ---
PT EATING LUNCH, STILL WAITING TO HEAR ABOUT PT'S HOME MEDICATIONS THAT WERE IN PHARMACY WHEN SHE WAS IN MED SURG.
--- NOTE | 2018-07-14 13:19 | NUR ---
PROVIDED VERBAL AND WRITTEN DISHCARGE TEACHING TO PT, WHO VERBALIZED UNDERSTANDING REGARDING TEACHING. PT'S RIDE WILL BE HER IN AN HOUR. PT WILL NOTIFY NURSE WHEN RIDE IS HERE TO TAKE IV OUT. HEART MONITOR REMOVED AND TAKEN TO femeninas TECH.
--- NOTE | 2018-07-14 13:33 | CN ---
PATIENT NAME:SOPHIA MANNING MEDICAL RECORD: [id number] : 36 LOCATION:D. D.2131 ADMIT DATE: 07/13/18 ACCOUNT: [id number] CONSULTING PHYSICIAN: MEHRDAD CHASE MD REFERRING PHYSICIAN: MADHU REYNA MD DATE OF CONSULTATION: 07/13/2018 HISTORY OF PRESENT ILLNESS: An 78-year-old female with a known history of coronary artery disease, status post intervention dating back to over 15 years ago when she underwent POBA, most recently underwent intervention in 2017. Admitted with chest pain. Not a great historian. Subsequently, ruled in for NSTEMI. We are asked to see her concerning her cardiovascular status. PAST MEDICAL HISTORY: Includes: 1. History of hypertension. 2. Hyperlipidemia. MEDICATIONS: Typically include Zoloft 100 every day, Effexor 75 b.i.d., aspirin 81 every day, Bystolic 10 every day, Zocor 20 every day, lisinopril 10 every day, Aricept 20 mg p.o. every day. ALLERGIES: AMOXICILLIN AND PENICILLIN. SOCIAL HISTORY: Nonsmoker, nondrinker. No set exercise program. Does need assistance with ADLs. REVIEW OF SYSTEMS: The patient reports easy bruising but reports no swollen glands. The patient reports no fever, no night sweats, no significant weight gain, no significant weight loss. No significant exercise tolerance. The patient reports no dry eyes, no irritation, no vision change. Patient reports no difficulty hearing and no ear pain. Patient reports no frequent nose bleeds or nose and sinus problems. Patient reports on arm pain on exertion. No shortness of breath while lying down. No history of heart murmur. Patient reports no cough, no wheezing or coughing up blood. Patient reports no abdominal pain, no vomiting. Normal appetite. No diarrhea and not vomiting blood. No nausea and no constipation. Patient reports no incontinence. No difficulty urinating. No hematuria. No increased frequency. Patient reports no muscle aches. No weakness, no arthralgias, no back pain. No swelling of the extremities. Patient reports no abnormal mole, no jaundice, no rashes. Reports no loss of consciousness. No weakness and no numbness. No seizures, dizziness, or headaches. The patient reports no depression, no sleep disturbance, feeling safe in a relationship and no alcohol abuse. Patient reports on fatigue. Reports no runny nose or sinus pressure. No itching, no hives, and no frequent sneezing. PHYSICAL EXAMINATION: GENERAL: Pleasant female, in no acute distress. VITAL SIGNS: Blood pressure 146/85, pulse 80 and regular. HEENT: Normocephalic, atraumatic. NECK: No JVD or bruit. HEART: Regular. A II/ systolic ejection murmur. LUNGS: Good air excursion. ABDOMEN: Soft, nontender. EXTREMITIES: Pulses 2+. No edema. CONSULT REPORT [id number] SOPHIA MANNING DIAGNOSTIC DATA: ECG without acute change. IMPRESSION: Acute coronary syndrome. Plan for angiography, intervention based on above. TRANSINT:[id number] Voice Confirmation ID: [id number] DOCUMENT ID: [id number] MEHRDAD CHASE MD at 1333 CC: [id number] DICTATION DATE: 07/13/18841 ASSISTANT BOOKKEEPER: 07/13/18 0923 ADM IN [place] [id number] [place] [address]
--- NOTE | 2018-07-14 13:33 | OP ---
PATIENT NAME: SOPHIA MANNING MEDICAL RECORD: [id number] :36 LOCATION:D.M2 D.2131 ADMISSION DATE:07/13/18 SURGEON: MEHRDAD CHASE MD DATE OF OPERATION: 07/13/2018 PROCEDURE: Left heart catheterization, selective coronary angiography, right femoral artery approach. CATHETERS: A 5-Solomon Islander sheath, 5/4 left and right Elsa, 5/4 pig. The procedure was well tolerated. The patient returned to trujillo. Sheath was removed. PTCA was finished. FINDINGS: Left ventriculography in 30-degree RADFORD view: Normal wall motion, normal systolic function. CORONARY ANATOMY: LEFT MAIN: Left main is free of disease. LAD: An area of previous stenting is widely patent. No evidence of restenosis. No progression of pauma disease. CIRCUMFLEX: Area of previous stenting is widely patent. No progression of pauma disease. RIGHT CORONARY ARTERY: Right at the proximal one-third shows a restenosis of 90%+, very discrete, with no evidence of restenosis. DESCRIPTION OF PROCEDURE: I had a 5-Solomon Islander sheath was exchanged for a 6-[place] Islander sheath. A hockey stick guide catheter provided excellent guide catheter support followed by 300 cm Whisper wire was placed across the tightly occluded right down this portion of the vessel. Balloon used was a 3.0 Burnet balloon up to 14 atmospheres for 45 seconds. Final angiography shows excellent resolution of 90% stenosis, no significant residual. MCKENNA flow was 3 throughout the procedure. The patient was previously was loaded on Plavix during this hospitalization. Heparin was used. Sheath was closed with ExoSeal device. TRANSINT:[id number] Voice Confirmation ID: [id number] DOCUMENT ID: [id number] MEHRDAD CHASE MD at 1333 CC: [id number] DICTATION DATE: 07/13/18 1653 LAUNCHMAN: 07/13/18 0518 ADM IN [place] [address] [place] [address]
--- NOTE | 2018-07-14 15:41 | NUR ---
RT FA IV REMOVED WITH CATHETER TIP INTACT. PT LEFT UNIT WITH ALL BELONGINGS, ACCOMPANIED BY FRIENDS. NAD NOTED.
--- NOTE | 2018-07-14 16:20 | MORECARE ---
CASE MANAGEMENT DISCHARGE SUMMARY PATIENT: SOPHIA MANNING UNIT: [id number] ADM DATE: 07/13/18 AGE: 78 : 38 SEX: F ROOM/BED: D.7881 AUTHOR: CHRIS,DOC PHYSICIAN: REFERRING PHYSICIAN: MADHU REYNA MD DATE OF SERVICE: 07/14/18 Discharge Plan Patient Name: SOPHIA MANNING Facility: [facility]:[place] : 1940 Planned Disposition: Home Anticipated Discharge Date: 07/14/18 Discharge Date: 07/14/2018 Expected LOS: 1 Initial Reviewer: [email or web address] Initial Review Date: 07/14/2018 Generated: 07/14/18 5:20 pm Comments DCP- Discharge Planning Updated by [email or web address]: Jeremiah Can on 07/14/18 3:[address] Patient Name: SOPHIA MANNING Admission Status: ER Accout number: [id number] Admission Date: 07-13-2018 : 1940 Admission Diagnosis: Attending: MADHU REYNA Current LOS: 1 Anticipated DC Date: 07-14-2018 Planned Disposition: Home Primary Insurance: MEDICARE A & B Discharge Planning Comments: CM MET WITH PT IN ROOM TO DISCUSS DISCHARGE PLANNING AND NEEDS. PT REPORTS LIVING AT HOME INDEPENDENTLY IN [facility]. PT HASA CANE WITH NO MEDICAL EQUIPMENT PROVIDER PREFERENCE. PT HAS HOUSEKEEPING, MEAL PREPARATION AND TRANSPORATION ASSISTANCE. PT HAS NO OUTSIDE SERVICES ASSISTING IN THE HOME. CM DISCUSSED AVAILABILITY OF HOME HEALTH, REHAB SERVICES AND MEDICAL EQUIPMENT. PT DENIES DISCHARGE NEEDS, STATES SHE WANTS HER HOUSECALLS NURSE TO CONTINUE COMING OUT. PT REPORTS HER FRIEND WILL PICK HER UP FOR DISCHARGE HOME TODAY. PT STATES THE HOSPITAL LOST HER HOME MEDICATIONS AFTER LAST HOSPITAL STAY AND THAT NERIS WANG IN ICU WAS WORKING ON FINDING THEM. PT ASKED IF THE NURSE COULD ASSIST. CM NOTIFIED SOFTWARE IMPLEMENTATION PROJECT MANAGER NURSE OF PT'S REQUEST. Mathematics Lecturer: Jeremiah Can DCPIA - Discharge Planning Initial Assessment Updated by [email or web address]: Jeremiah Can on 07/14/18 4:14 pm * Is the patient Alert and Oriented? Yes * How many steps to enter\exit or inside your home? NONE * PCP DR. GEORGE STATES WAS SET UP TO SEE DR. BERMUDEZ BUT HAS NOT MADE FIRST APPOINTMENT YET * Pharmacy [facility] [place]E WANTS TO USE [facility] * Preadmission Environment Independent [facility] Apartment * Other Environment [facility] * Facility Name [facility] * ADLs Independent * Equipment Cane * Other Equipment NO MEDICAL EQUIPMENT PROVIDER PREFERENCE * List name and contact numbers for known caregivers / representatives who currently or will assist patient after discharge: CARLENE MACIAS, SON, [phone] * Verbal permission to speak to the caregivers and representatives has been obtained from the patient. No * Community resources currently utilized Other * Please name any agencies selected above. [facility] * Additional services required to return to the preadmission environment? No * Can the patient safely return to the preadmission environment? Yes * Has this patient been hospitalized within the prior 30 days at any hospital? Yes Patient Name: SOPHIA MANNING Page 32498 at 1620 All edits/amendments must be made on the electronic document DICTATION DATE: 07/14/181618 RAIL LAYER: JUAN 07/14/181618 RPT#: [id number] DC DATE:07/14/18 STATUS: DIS IN [place] [id number] [place] [address] END OF REPORT
== END 2018-07-14 15:43 | disposition home or self-care (01) | DRG 251 ==
LOC: D.ER 18:39 → D.M2 20:56 → OBSVTIME 20:56 → D.M2 07-13 11:52
PROVIDERS: Family Medicine; Internal Medicine Interventional Cardiology; Internal Medicine Nephrology; ADMIT Family Medicine; ATTEND Family Medicine
PROC: B2111ZZ Fluoroscopy of Multiple Coronary Arteries using Low Osmolar Contrast (ICD-10-PCS; 2018-07-13)
PROC: B2151ZZ Fluoroscopy of Left Heart using Low Osmolar Contrast (ICD-10-PCS; 2018-07-13)
PROC: 02703ZZ Dilation of Coronary Artery, One Artery, Percutaneous Approach (ICD-10-PCS; principal; 2018-07-13 15:55)
PROC: 4A023N7 Measurement of Cardiac Sampling and Pressure, Left Heart, Percutaneous Approach (ICD-10-PCS; 2018-07-13 15:55)
DX: I24.9 Acute ischemic heart disease, unspecified (principal); N17.9 Acute kidney failure, unspecified; E87.1 Hypo-osmolality and hyponatremia; I25.10 Atherosclerotic heart disease of native coronary artery without angina pectoris; I16.0 Hypertensive urgency; R00.2 Palpitations; D50.9 Iron deficiency anemia, unspecified; J44.9 Chronic obstructive pulmonary disease, unspecified; G47.33 Obstructive sleep apnea (adult) (pediatric); Z86.73 Personal history of transient ischemic attack (TIA), and cerebral infarction without residual deficits; G30.9 Alzheimer's disease, unspecified; F02.80 Dementia in other diseases classified elsewhere, unspecified severity, without behavioral disturbance, psychotic disturbance, mood disturbance, and anxiety; F41.9 Anxiety disorder, unspecified

== ENCOUNTER → 2018-10-12 08:15 | Outpatient (CLI) | payer MEDICARE ==
[2018-07-12 16:02] VITALS: BMI 18.0
== END | disposition home or self-care (01) ==
LOC: D.HCCARDIO 08:15
PROVIDERS: ATTEND Internal Medicine Cardiovascular Disease
DX: I25.10 Atherosclerotic heart disease of native coronary artery without angina pectoris (principal)

== ENCOUNTER 2019-02-14 15:36 | Observation (INO) | payer MEDICARE ==
[~2019-02-14] VITALS: Ht 157.5 cm; Wt 50.6 kg
[2019-02-14 16:00] VITALS: BP 177/82
[2019-02-14 16:03] LABS: BASOPHILS 0.3 % (0-2); EOSINOPHILS 3.7 % (0-7); HEMATOCRIT 31.2 % (36.0-48.0); HEMOGLOBIN 10.2 g/dL (12-16); IMMATURE GRANULOCYTES 0.2 % (0-5); LYMPHOCYTES 26.4 % (15-50); MCH 28.5 pg (26.0-34.0); MCHC 32.7 g/dL (31.0-37.0); MCV 87.2 fL (80.0-100.0); MEAN PLATELET VOLUME 9.8 fL (7.4-10.4); MONOCYTES 8.7 % (2-11); NEUTROPHILS 60.7 % (40-80); PLATELET COUNT 214 10x3/uL (130-400); RBC 3.58 10x6/uL (4.00-5.40); RDW 15.1 % (11.5-14.5); WBC 6.2 10x3/uL (4.8-10.8)
[2019-02-14 16:12] LABS: APTT 23.9 SECONDS (22.8-39.4); CALC OSMOLALITY 281 mosm/kg (275-300); CALCIUM 9.2 mg/dL (8.5-10.1); CARBON DIOXIDE 29.2 mmol/L (21.0-32.0); CHLORIDE - SERUM 103 mmol/L (98-107); CREATININE - SERUM 1.5 mg/dL (0.6-1.3); GLUCOSE 107 mg/dL (74-106); INR 1.11 (0.85-1.17); POTASSIUM - SERUM 4.2 mmol/L (3.5-5.1); PROTIME 13.8 SECONDS (11.6-15.0); SODIUM 139 mmol/L (136-145); UREA NITROGEN 25 mg/dL (7-18); eGFR NON AFRICAN AMERICAN 35 mL/min (90-120)
[2019-02-14 16:30] LABS: ALBUMIN 3.4 g/dL (3.4-5.0); ALKALINE PHOSPHATASE 69 U/L (46-116); ALT (SGPT) 24 U/L (10-68); BILIRUBIN - TOTAL 0.28 mg/dL (0.2-1.3); CKMB 1.6 U/L (0.0-3.6); CREATINE KINASE 102 UL (21-215); PROTEIN - SERUM 7.2 g/dL (6.4-8.2); THYROID STIMULATING HORMONE 2.07 uIU/mL (0.36-3.74)
[2019-02-14 16:32] LABS: TROPONIN-I < 0.017 ng/mL (0.000-0.060)
[2019-02-14 18:58] LABS: CKMB 1.3 U/L (0.0-3.6); CREATINE KINASE 94 UL (21-215)
[2019-02-14 19:00] LABS: TROPONIN-I < 0.017 ng/mL (0.000-0.060)
[2019-02-14 20:27] LABS: % SATURATION 9 % (15-55); IRON 34 ug/dl (35-150); TOTAL IRON BIND CAPACITY 349 ug/dl (260-445); UNSAT IRON BIND CAPACITY 315 ug/dl (150-375)
--- NOTE | 2019-02-14 20:30 | NUR ---
ARRIVED TO UNIT VIA HOSPITAL STAFF, BP WAS 217/87 P 71 JOHN NOTIFIED WITH ORDERS FOR CLONIDINE 0.1MG TIMES ONE NOW AND THEN HYDRALAZINE 10MG Q 4 HOURS PRN FOR SPB <180. PLEASANT MOOD AND AFFECT. SHOWS SOME CONFUSION WHEN ASKED ABOUT TIME, BUT IS ORIENTED TO PLACE AND PERSON. ABLE TO VOICE ALL NEEDS. AMBULATES WELL TO RESTROOM, DID ASK IF SHE WOULD NOTIFY NURSE IF SHE NEEDS TO AMBULATE IN FUTURE JUST FOR STAND BY ASSIST, SHE AGREEED. SHOWS NO S/S OF ANY FURTHER ACUTE DISTRESS AT THIS TIME. WILL NOTE ANY CHANGE.
[2019-02-14 20:35] VITALS: BP 190/87; Ht 157.5 cm; Wt 50.6 kg
[2019-02-14 20:55] LABS: LDL-HDL RATIO 1.9 ratio (1.5-3.5)
[2019-02-14 22:44] LABS: CKMB 0.9 U/L (0.0-3.6); CREATINE KINASE 90 UL (21-215); TROPONIN-I 0.016 ng/mL (0.000-0.060)
[2019-02-15] VITALS: BP 142/64
[2019-02-15 04:00] VITALS: BP 126/70
[2019-02-15 04:34] LABS: BASOPHILS 0.5 % (0-2); EOSINOPHILS 7.4 % (0-7); HEMATOCRIT 29.5 % (36.0-48.0); HEMOGLOBIN 9.6 g/dL (12-16); IMMATURE GRANULOCYTES 0.2 % (0-5); LYMPHOCYTES 34.3 % (15-50); MCH 28.4 pg (26.0-34.0); MCHC 32.5 g/dL (31.0-37.0); MCV 87.3 fL (80.0-100.0); MONOCYTES 9.2 % (2-11); NEUTROPHILS 48.4 % (40-80); PLATELET COUNT 195 10x3/uL (130-400); RBC 3.38 10x6/uL (4.00-5.40); RDW 15.3 % (11.5-14.5); WBC 5.8 10x3/uL (4.8-10.8)
[2019-02-15 05:19] LABS: ALBUMIN 2.8 g/dL (3.4-5.0); ALKALINE PHOSPHATASE 54 U/L (46-116); ALT (SGPT) 21 U/L (10-68); BILIRUBIN - TOTAL 0.28 mg/dL (0.2-1.3); CALC OSMOLALITY 280 mosm/kg (275-300); CALCIUM 8.5 mg/dL (8.5-10.1); CARBON DIOXIDE 26.9 mmol/L (21.0-32.0); CHLORIDE - SERUM 105 mmol/L (98-107); CKMB 0.8 U/L (0.0-3.6); CREATINE KINASE 74 UL (21-215); GLUCOSE 89 mg/dL (74-106); PROTEIN - SERUM 6.2 g/dL (6.4-8.2); SODIUM 138 mmol/L (136-145); UREA NITROGEN 29 mg/dL (7-18)
[2019-02-15 05:26] LABS: TROPONIN-I < 0.017 ng/mL (0.000-0.060); eGFR NON AFRICAN AMERICAN 56 mL/min (90-120)
--- NOTE | 2019-02-15 05:40 | NUR ---
RESTED WELL THIS SHIFT. SHOWS NO S/S OF ANY ACUTE DISTRESS. WILL NOTE ANY CHANGE.
--- NOTE | 2019-02-15 06:19 | NUR ---
I have reviewed this patient and I concur with the Shift Assessment completed by the Licensed Practical Nurse today this shift.
--- NOTE | 2019-02-15 07:57 | NUR ---
RESTING IN BED. LUNGS CLEAR BILATERALLY. HEART SOUNDS S1 AND S2 HEARD IN ALL OSEGUERA. BOWEL SOUNDS ACTIVE X 4. SKIN INTACT WITHOUT REDNESS. IV TO RIGHT AC SL PATENT WITHOUT REDNESS. DENIES NEEDS. BED LOW. FALL PRECAUTIONS IN PLACE. TELEMETRY IN PLACE. CALL BRITT AND PERSONAL ITEMS IN REACH. WILL CONTINUE TO MONITOR.
[2019-02-15 08:53] LABS: CKMB 0.4 U/L (0.0-3.6); CREATINE KINASE 66 UL (21-215)
[2019-02-15 08:57] LABS: TROPONIN-I < 0.017 ng/mL (0.000-0.060)
[2019-02-15 09:16] VITALS: BP 135/62
[2019-02-15] MEDS ORDERED: ASPIRIN325 MG PO (10:57)
--- NOTE | 2019-02-15 11:17 | NUR ---
IV OUT TO RIGHT AC. DISCHARGE ORDERS IN. WILL NOT RESITE UNLESS PATIENT NEEDS IV MEDS. WAITING DISCHARGE PAPERWORK.
--- NOTE | 2019-02-15 11:40 | NUR ---
SPOKE WITH PATIENT'S DAUGHTER IN LAW KAYA TO NOTIFY OF DISCHARGE. STATES WILL GET RIDE FOR PATIENT.
--- NOTE | 2019-02-15 11:45 | NUR ---
DISCHARGE EDUCATION PROVIDED BOTH WRITTEN AND VERBAL. VERBALIZED UNDERSTANDING. DENIES FURTHER QUESTIONS. NOTIFIED THAT FRIEND BUD WOULD BROKERAGE COORDINATOR FROM HOSPITAL PER DAUGHTER IN LAW. STATES THAT WILL BE FINE. DENIES NEEDS. ASSISTED TO GET DRESSED. WAITING FOR RIDE.
--- NOTE | 2019-02-15 12:30 | NUR ---
PATIENT DISCHARGED HOME WITH ALL BELONGINGS. TELEMETRY RETURNED TO STREET AND BUILDING DECORATOR.
--- NOTE | 2019-02-15 16:30 | NUR ---
OT NOTE: PT COMPLETED MOB TASKS WITH CGA. THANK YOU, ARNOLD HUNTLEY
--- NOTE | 2019-02-16 11:17 | EC ---
PATIENT:SOPHIA MANNING DATE OF SERVICE: 02/14/19 SEX: F MEDICAL RECORD: [id number] DATE OF : [birth year] LOCATION:[facility] AGE OF PATIENT: 78 ADMISSION DATE: 02/14/19 REFERRING PHYSICIAN: INTERPRETING PHYSICIAN: ZAY HANDLEY MD ECHOCARDIOGRAM REPORT ECHO CHARGES 4 ECHO COMPLETE Date: 02/15/19 CLINICAL DIAGNOSIS: TIA ECHOCARDIOGRAPHIC MEASUREMENTS (adult normal given) AC root (d.<3.7cm) 2.5 cm LV Septum d (<1.2 cm> 1.0 cm Valve Excursion 1.1 cm LV Septum (systole) 1.9 cm Left Atria (s.<4.0cm> 3.8 cm LVPW d(<1.2cm) 1.1 cm RV (d.<2.3cm) 2.5 cm LVPW (sytole) 1.5 cm LV diastole(<5.6CM) 4.5 cm MV E-F(>70mm/sec) cm LV systole 2.3 cm LVOT Diameter 1.6 cm MV exc.(>10mm) cm Est.ejection fraction (50-75%) % DOPPLER: LVIT cm/sec A 97 cm/sec E 79 cm/sec LA cm/sec RVSP 41.4 mmHg LVOT 101 cm/sec AOP1/2T m/s Asc. Ao 191 cm/sec RVOT 69 cm/sec RA cm/sec PA 82 cm/sec AV Gradient Peak 14.7 mmHg AV Mean 8.3 mmHg AV Area 1.1 cm MV Gradient Peak 5.5 mmHg MV Mean 2.6 mmHg MV Area cm COMMENTS: Remote Sensing Scientist: Anu [facility] Sessions Clerk: 1 Dr. Handley TAPE# PACS Pericardial Effusion N DATE OF SERVICE: FINDINGS: 1. Left ventricular chamber size is within normal limits. Left ventricular systolic function is normal. Overall ejection fraction estimated at 55%. 2. Left atrium, right atrium, and right ventricular chamber sizes are within normal limits. 3. Valvular structures have normal structure and motion. 4. Doppler interrogation reveals mild mitral regurgitation, mild tricuspid regurgitation, no other valvular insufficiency or stenosis. Pulmonary systolic ECHOCARDIOGRAM REPORT [id number] SOPHIA MANNING pressure estimated at 42 mmHg. 5. No evidence of pericardial effusion or left ventricular thrombus. TRANSINT:[id number] Voice Confirmation ID: [id number] DOCUMENT ID: [id number] ZAY HANDLEY MD at 1117 CC: [id number] DICTATION DATE: 02/15/19 155 GAS COMBUSTION ENGINEER: 02/15/19 190 DIS IN 02/15/19 [facility] [address] [id number]
== END 2019-02-15 12:53 | disposition home or self-care (01) ==
LOC: D.ER 15:36 → D.MS 19:22 → OBSVTIME 02-15 → D.MS 02-15 12:53
PROVIDERS: Family Medicine; ADMIT Family Medicine; ATTEND Family Medicine
DX: I65.23 Occlusion and stenosis of bilateral carotid arteries (principal); G45.9 Transient cerebral ischemic attack, unspecified; F03.90 Unspecified dementia, unspecified severity, without behavioral disturbance, psychotic disturbance, mood disturbance, and anxiety; I10 Essential (primary) hypertension; D64.9 Anemia, unspecified; I25.10 Atherosclerotic heart disease of native coronary artery without angina pectoris; J44.9 Chronic obstructive pulmonary disease, unspecified

== ENCOUNTER 2019-02-27 18:33 | Inpatient (IN) | payer MEDICARE ==
[~2019-02-27] VITALS: Ht 157.5 cm; Wt 48.1 kg
[~2019-02-27 18:33] MED LIST changes: +ASPIRIN325 MG PO
[2019-02-27 20:28] LABS: BASOPHILS 0.2 % (0-2); EOSINOPHILS 3.1 % (0-7); HEMATOCRIT 32.9 % (36.0-48.0); HEMOGLOBIN 10.8 g/dL (12-16); IMMATURE GRANULOCYTES 0.2 % (0-5); LYMPHOCYTES 18.2 % (15-50); MCH 28.5 pg (26.0-34.0); MCHC 32.8 g/dL (31.0-37.0); MCV 86.8 fL (80.0-100.0); MEAN PLATELET VOLUME 9.9 fL (7.4-10.4); MONOCYTES 7.9 % (2-11); NEUTROPHILS 70.4 % (40-80); PLATELET COUNT 239 10x3/uL (130-400); RBC 3.79 10x6/uL (4.00-5.40); RDW 14.8 % (11.5-14.5); WBC 8.5 10x3/uL (4.8-10.8)
[2019-02-27 20:37] LABS: INR 1.13 (0.85-1.17)
[2019-02-27 20:39] LABS: ANION GAP 11.2 mmol/L (8-16); CALCIUM 9.5 mg/dL (8.5-10.1); CARBON DIOXIDE 28.5 mmol/L (21.0-32.0); CREATININE - SERUM 0.8 mg/dL (0.6-1.3); POTASSIUM - SERUM 3.7 mmol/L (3.5-5.1)
[2019-02-27 20:45] LABS: ALBUMIN 3.6 g/dL (3.4-5.0); BILIRUBIN - TOTAL 0.26 mg/dL (0.2-1.3); PROTEIN - SERUM 7.4 g/dL (6.4-8.2)
--- NOTE | 2019-02-27 21:01 | NUR ---
PT RETURNED FROM CT VIA STRETCHER
--- NOTE | 2019-02-27 21:10 | NUR ---
REPORT GIVEN TO REYNALDO RICHARDSON.
--- NOTE | 2019-02-27 21:48 | NUR ---
PT PLACED IN GOWN. NS INFUSING
--- NOTE | 2019-02-27 21:50 | NUR ---
SLING APPLIED TO R ARM, CAP REFILL <3 SECONDS, COLOR WNL
--- NOTE | 2019-02-27 22:20 | NUR ---
ADMITTED TO ROOM FROM ER ALERT AND ORIENTIATED, SLING NOTED IN PLACE TO RIGHT ARM, IV INFUSING TO LEFT FA WITHOUT DIFFICULTY, C/O PAIN TO RIGHT ARM, DILAUDID MEDICAL PARASITOLOGIST STARTED ORDERED, INSTRUCTED ON USE VERBALIZED UNDERSTANDING, CALL LIGHT IN ACGH
[2019-02-27 23:11] VITALS: BP 191/87; BMI 19.4
[2019-02-28 05:12] VITALS: BP 137/67
[2019-02-28 06:47] LABS: APPEARANCE HAZY (CLEAR); BILIRUBIN NEGATIVE (NEGATIVE); COLOR YELLOW (YELLOW); GLUCOSE NEGATIVE (NEGATIVE); KETONE SMALL mg/dL (NEGATIVE); NITRITE NEGATIVE (NEGATIVE); PROTEIN 1+ mg/dL (NEGATIVE); UROBILINOGEN NORMAL (NORMAL)
[2019-02-28 06:48] LABS: BACTERIA MANY /hpf (NEGATIVE); EPITHELIAL CELLS 0-5 /hpf (0-5); RED CELLS - URINE NONE SEEN /hpf (0-5); WHITE CELLS - URINE 0-5 /hpf (NEGATIVE)
--- NOTE | 2019-02-28 07:30 | NUR ---
PT ISD WITHOUT DISTRESS.CALL LIGHT IN REACH
[2019-02-28 08:20] VITALS: BP 157/59
[2019-02-28 10:59] LABS: BASOPHILS 0.1 % (0-2); EOSINOPHILS 1.1 % (0-7); HEMATOCRIT 27.5 % (36.0-48.0); IMMATURE GRANULOCYTES 0.1 % (0-5); LYMPHOCYTES 16.2 % (15-50); MCHC 32.7 g/dL (31.0-37.0); MCV 85.7 fL (80.0-100.0); MEAN PLATELET VOLUME 9.5 fL (7.4-10.4); MONOCYTES 10.4 % (2-11); NEUTROPHILS 72.1 % (40-80); PLATELET COUNT 194 10x3/uL (130-400); RBC 3.21 10x6/uL (4.00-5.40); RDW 14.8 % (11.5-14.5); WBC 7.6 10x3/uL (4.8-10.8)
[2019-02-28 11:17] LABS: ALBUMIN 3.1 g/dL (3.4-5.0); ANION GAP 11.6 mmol/L (8-16); BILIRUBIN - TOTAL 0.5 mg/dL (0.2-1.3); CALCIUM 8.8 mg/dL (8.5-10.1); CARBON DIOXIDE 25.6 mmol/L (21.0-32.0); CREATININE - SERUM 0.8 mg/dL (0.6-1.3); POTASSIUM - SERUM 4.2 mmol/L (3.5-5.1); PROTEIN - SERUM 6.4 g/dL (6.4-8.2)
[2019-02-28 12:03] VITALS: BP 177/69
[2019-02-28 13:55] VITALS: Ht 157.5 cm; Wt 48.1 kg
--- NOTE | 2019-02-28 15:36 | NUR ---
PT C/O PAIN WHE NSHE MOVED HER ARM, ENCOURAGED PT TO PUSH PAIN BUTTON WHEN SHE STARTS TO HURT TO GET AHAEAD OF PAIN, FAMILY FRIEND AT BEDSIDE, NO S/SX OF DISTRESS CONTINUE WITH PLAN OF CARE
[2019-02-28 17:04] VITALS: BP 178/81
--- NOTE | 2019-02-28 20:00 | NUR ---
ASSESSMENT PER FLOWSHEET. IV PATENT LEFT HAND OF NS AT 50CC'S/HR. SENSITIZER OF DILAUDID IN USE WITH SETTINGS AT 0.2MG Q10MIN W/4MG Q4HR L/O. SLING TO RT ARM. SR UP X2 CALL LIGHT WITHIN REACHY.RENETTA MAT IN USE. ALERT/ORIENTED X4
[2019-02-28 21:08] VITALS: BP 167/75
--- NOTE | 2019-02-28 22:00 | NUR ---
MEDS GIVEN PA MAY. USES MAKE UP OPERATOR BUTTON FOR PAIN CONTROL. PLACED ON BEDPAN. VOIDED FREELY
--- NOTE | 2019-03-01 | NUR ---
NPO FOR SURGERY IN AM.
--- NOTE | 2019-03-01 | NUR ---
AWAKE PULLING AT SCD'S PULLING LEGS OVER SIDERAILS. REPOSITIONED IN BED SR UP X3 CALL LIGHT WITHIN REACH.
[2019-03-01 01:05] VITALS: BP 151/69
--- NOTE | 2019-03-01 02:50 | NUR ---
EYES CLOSED RESPIRATIONS WITH EASE AND UNLABORED.
[2019-03-01 04:38] VITALS: BP 140/66
[2019-03-01 05:50] LABS: BASOPHILS 0.1 % (0-2); EOSINOPHILS 3.5 % (0-7); HEMATOCRIT 24.6 % (36.0-48.0); HEMOGLOBIN 8.1 g/dL (12-16); IMMATURE GRANULOCYTES 0.1 % (0-5); LYMPHOCYTES 16.3 % (15-50); MCH 28.5 pg (26.0-34.0); MCHC 32.9 g/dL (31.0-37.0); MCV 86.6 fL (80.0-100.0); MEAN PLATELET VOLUME 9.7 fL (7.4-10.4); MONOCYTES 13.2 % (2-11); NEUTROPHILS 66.8 % (40-80); PLATELET COUNT 176 10x3/uL (130-400); RBC 2.84 10x6/uL (4.00-5.40); RDW 14.8 % (11.5-14.5); WBC 6.9 10x3/uL (4.8-10.8)
[2019-03-01 06:27] LABS: ALBUMIN 2.6 g/dL (3.4-5.0); ALKALINE PHOSPHATASE 54 U/L (46-116); BILIRUBIN - TOTAL 0.38 mg/dL (0.2-1.3); CALC OSMOLALITY 272 mosm/kg (275-300); CALCIUM 8.1 mg/dL (8.5-10.1); CARBON DIOXIDE 23.9 mmol/L (21.0-32.0); CHLORIDE - SERUM 103 mmol/L (98-107); CREATININE - SERUM 0.7 mg/dL (0.6-1.3); GLUCOSE 102 mg/dL (74-106); POTASSIUM - SERUM 3.9 mmol/L (3.5-5.1); PROTEIN - SERUM 5.6 g/dL (6.4-8.2); SODIUM 135 mmol/L (136-145); UREA NITROGEN 20 mg/dL (7-18); eGFR NON AFRICAN AMERICAN 85 mL/min (90-120)
[2019-03-01 06:28] LABS: ALT (SGPT) 14 U/L (10-68)
[2019-03-01 08:37] VITALS: BP 230/99
[2019-03-01 12:24] VITALS: BP 140/70
--- NOTE | 2019-03-01 14:05 | NUR ---
PT TAKEN TO SURGERY, CONTINUE WITH PLAN OF CARE
--- NOTE | 2019-03-01 15:16 | MORECARE ---
CASE MANAGEMENT DISCHARGE SUMMARY PATIENT: SOPHIA MANNING UNIT: [id number] ADM DATE: 02/27/19 AGE: 78 : 38 SEX: F ROOM/BED: D.2225 AUTHOR: CHRISDOC PHYSICIAN: REFERRING PHYSICIAN: TEN BERMUDEZ MD DATE OF SERVICE: 03/01/19 Discharge Plan Patient Name: SOPHIA MANNNIG Facility: [facility]:[place] : 1940 Planned Disposition: Senior Living Facility Anticipated Discharge Date: 03/03/19 Discharge Date: Expected LOS: 4 Initial Reviewer: [email or web address] Initial Review Date: 03/01/2019 Generated: 03/01/19 4:15 pm Comments DCP- Discharge Planning Updated by [email or web address]: Hollie Rivas on 03/01/19 2:[address] Patient Name: SOPHIA MANNING Admission Status: ER Accout number: [id number] Admission Date: 02-27-2019 : 1940 Admission Diagnosis: Attending: TEN BERMUDEZ Current LOS: 2 Anticipated DC Date: 03-03-2019 Planned Disposition: Senior Living Facility Primary Insurance: MEDICARE A & B Discharge Planning Comments: CM met with patient to complete initial dc planning assessment, ;her son and DIL are in the room and verbal permission received to discuss discharge planning with family in the room. CM educated patient on the CM role and verbal consent given by patient to complete assessment. Patient lives at [facility]. At discharge patient plans to return and feels this is a safe discharge. CM discussed availability of home health, rehab services, and medical equipment. Patient states "I know I can't go back to [facility] until I get stronger." We discussed again inpatient rehab vs SNF and she would like to go close to her son's home and ABDIFATAH for [facility] signed. I called and left a message with Celia Farah and clinical faxed. CM will continue to follow and will assist as needed with dc plans/needs. Shrink Pit Supervisor: Hollie Rivas DCPIA - Discharge Planning Initial Assessment Updated by [email or web address]: Hollie Rivas on 03/01/19 3:10 pm * Is the patient Alert and Oriented? Yes * How many steps to enter\\exit or inside your home? 0/0 * PCP DR. PARISI * Pharmacy [facility] * Preadmission Environment Independent [facility] Apartment * Facility Name [facility] * ADLs Partial Dependent * Partial ADLs (Assistance needed) Ambulation * Equipment Cane Shower Chair Walker * List name and contact numbers for known caregivers / representatives who currently or will assist patient after discharge: Jonatan kapoor - [phone] Celia CASTILLO - [phone] * Verbal permission to speak to the caregivers and representatives has been obtained from the patient. Yes * Community resources currently utilized None * Additional services required to return to the preadmission environment? Yes * Can the patient safely return to the preadmission environment? Yes * Has this patient been hospitalized within the prior 30 days at any hospital? No Patient Name: SOPHIA MANNING Page [id number] at 1516 All edits/amendments must be made on the electronic document DICTATION DATE: 03/01/191514 ASSISTANT CREDIT MANAGER: JUAN 03/01/191514 RPT#: [id number] DC DATE: STATUS: ADM IN [facility] [address] [place] [address] END OF REPORT
[2019-03-01 18:11] VITALS: BP 148/65
--- NOTE | 2019-03-01 20:00 | NUR ---
ASSESSMENT PER FLOWSHEET. WOUND VAC PROVENA DRSG TO RT SHOULDER INCISION IV PATENT LEFT ARM OF NS AT 50CC'S/HR. RT SHOULDER WITH BRUISING AND EDEMA. SCD'S ON. PATIENT VERY CONFUSED, STATES NEEDS TO GO GET THE KIDS ON THE BUS ATTEMPT TO RE-ORIENT PATIENT. RENETTA BED ALARM MAT IN USE.
[2019-03-01 20:45] VITALS: BP 157/62
--- NOTE | 2019-03-01 21:00 | NUR ---
PATIENT IS ATTEMPTING TO GET OUT OF BED ALARMS SOUNDING. ASSISTED INTO BED REPOSITIONED IN BED REPLACED SCD WRAPS.
[2019-03-02 01:21] VITALS: BP 140/58
--- NOTE | 2019-03-02 03:00 | NUR ---
[id number] RESIVOUR IS FULL NO REPLACEMENT FOUND IN ROOM OR IN CS SUPPLY ROOM NOTIFIED MOUNTER FLUTES AND PICCOLOS AMANDA JACOBS. WILL TRY TO LOCATE ONE.
[2019-03-02 05:06] VITALS: BP 154/55
[2019-03-02 06:34] LABS: BASOPHILS 0.2 % (0-2); EOSINOPHILS 0 % (0-7); HEMATOCRIT 26.4 % (36.0-48.0); HEMOGLOBIN 8.9 g/dL (12-16); IMMATURE GRANULOCYTES 0.2 % (0-5); LYMPHOCYTES 9.2 % (15-50); MCH 28.8 pg (26.0-34.0); MCHC 33.7 g/dL (31.0-37.0); MCV 85.4 fL (80.0-100.0); MEAN PLATELET VOLUME 9.7 fL (7.4-10.4); MONOCYTES 15.3 % (2-11); NEUTROPHILS 75.1 % (40-80); RBC 3.09 10x6/uL (4.00-5.40); RDW 15.3 % (11.5-14.5); WBC 8.5 10x3/uL (4.8-10.8)
[2019-03-02 06:41] LABS: ALBUMIN 2.5 g/dL (3.4-5.0); ALKALINE PHOSPHATASE 56 U/L (46-116); BILIRUBIN - TOTAL 0.68 mg/dL (0.2-1.3); CALCIUM 7.9 mg/dL (8.5-10.1); CARBON DIOXIDE 25.8 mmol/L (21.0-32.0); CHLORIDE - SERUM 102 mmol/L (98-107); GLUCOSE 121 mg/dL (74-106); PLATELET COUNT 217 10x3/uL (130-400); POTASSIUM - SERUM 3.9 mmol/L (3.5-5.1); PROTEIN - SERUM 5.5 g/dL (6.4-8.2); SODIUM 136 mmol/L (136-145); eGFR NON AFRICAN AMERICAN > 90 mL/min (90-120)
[2019-03-02 06:51] LABS: ALT (SGPT) 6 U/L (10-68); CALC OSMOLALITY 273 mosm/kg (275-300); CREATININE - SERUM 0.3 mg/dL (0.6-1.3); UREA NITROGEN 14 mg/dL (7-18)
[2019-03-02 08:20] VITALS: BP 184/74
--- NOTE | 2019-03-02 08:34 | MORECARE ---
CASE MANAGEMENT DISCHARGE SUMMARY PATIENT: SOPHIA MANNING UNIT: [id number] ADM DATE: 02/27/19 AGE: 78 : 38 SEX: F ROOM/BED: D.2225 AUTHOR: CHRIS,DOC PHYSICIAN: REFERRING PHYSICIAN: TEN BERMUDEZ MD DATE OF SERVICE: 03/02/19 Discharge Plan Patient Name: SOPHIA MANNING Facility: [facility]:[place] : 1940 Planned Disposition: Mcfp Facility Anticipated Discharge Date: 03/03/19 Discharge Date: Expected LOS: 4 Initial Reviewer: [email or web address] Initial Review Date: 03/01/2019 Generated: 03/02/19 9:33 am Comments DCP- Discharge Planning Updated by [email or web address]: Hollie Rivas on 03/02/19 7:[address] Spoke with Celia at [facility] about referral and clinical faxed. CM will continue to follow and assist with discharge planning/needs. DCP- Discharge Planning Updated by [id number]: Hollie Rivas on 03/01/19 2:[address] Patient Name: SOPHIA MANNING Admission Status: ER Accout number: [id number] Admission Date: 02-27-2019 : 1940 Admission Diagnosis: Attending: TEN BERMUDEZ Current LOS: 2 Anticipated DC Date: 03-03-2019 Planned Disposition: Mcfp Facility Primary Insurance: MEDICARE A & B Discharge Planning Comments: CM met with patient to complete initial dc planning assessment, ;her son and DIL are in the room and verbal permission received to discuss discharge planning with family in the room. CM educated patient on the CM role and verbal consent given by patient to complete assessment. Patient lives at [facility]. At discharge patient plans to return and feels this is a safe discharge. CM discussed availability of home health, rehab services, and medical equipment. Patient states "I know I can't go back to [facility] until I get stronger." We discussed again inpatient rehab vs SNF and she would like to go close to her son's home and ABDIFATAH for [facility] signed. I called and left a message with Celia Farah and clinical faxed. CM will continue to follow and will assist as needed with dc plans/needs. Gasoline Attendant: Hollie Henningjose j DCPIA - Discharge Planning Initial Assessment Updated by [id number]: Hollie Evelyn on 03/01/19 3:10 pm * Is the patient Alert and Oriented? Yes * How many steps to enter\\exit or inside your home? 0/0 * PCP DR. PARISI * Pharmacy [facility] [address] * Preadmission Environment Independent [facility] Apartment * Facility Name [facility] * ADLs Partial Dependent * Partial ADLs (Assistance needed) Ambulation * Equipment Cane Shower Chair Walker * List name and contact numbers for known caregivers / representatives who currently or will assist patient after discharge: Jonatan emelia - [phone] Celia [facility] - [phone] * Verbal permission to speak to the caregivers and representatives has been obtained from the patient. Yes * Community resources currently utilized None * Additional services required to return to the preadmission environment? Yes * Can the patient safely return to the preadmission environment? Yes * Has this patient been hospitalized within the prior 30 days at any hospital? No External [facility] Next Contact Date: Service Request Date: Service Type: Resolution: Reviewer: Comments: Coverage Notice Reviewer: [id number] - Hollie Evelyn Notice Issued Date-Time: 03/01/2019 15:15 Notice Type: Patient Choice Letter Notice Delivered To: Family Member Relationship to Patient: Son Continuity Tester Name: Manuelito Delivery Method: HAND - Hand Delivered Ana Days: Prior Verbal Notification: Recipient Understood Notice: Yes Recipient Signature: Yes Med Rec Note Co-signed by Attending: Coverage Notice Comment: ABDIFATAH for [facility] Last DP export: 03/01/19 2:16 Patient Name: SOPHIA MANNING Page 66812 at 0834 All edits/amendments must be made on the electronic document DICTATION DATE: 03/02/19832 AERIAL ERECTOR: JUAN 03/02/19832 RPT#: [id number] DC DATE: STATUS: ADM IN [facility] [address] [place] [address] END OF REPORT
--- NOTE | 2019-03-02 10:40 | NUR ---
PATIENT RECIEVED THIS AM DAY ONE POST OP RIGHT SHOULDER. PREVENA VAC IN PLACE. MODERATE EDMA AND BRUSING NOTED AROUND DRESSING. SLING IN PLACE AND ICE TO INCISION. PAIN RELIEVED WITH NORCO. PATIENT IS MORE ALERT AND ORIENTED FROM LAST PM. CL IN REACH
--- NOTE | 2019-03-02 12:51 | NUR ---
NUTRITION F/U PT TOLERATING REG DIET BUT PO INTAKE POOR THIS AM. PT STATES SHE THOUGHT SHE WAS EATING OKAY. AGREEABLE TO ADDING ENSURE TO MEALS. RD FOLLOWING
[2019-03-02 13:41] VITALS: BP 116/49
--- NOTE | 2019-03-02 15:08 | NUR ---
Rehab Note- Acute Inpatient Rehab prescreen order received. The patient's family lives in [place] area & is requesting that the patient go to [facility] for extended therapy after discharge from the acute hospital. Have spoken to JEWELL Browne. Thank you for this referral! Leia Garrison RN Clinical Liaison, [facility]
--- NOTE | 2019-03-02 18:00 | NUR ---
PT WOUND VAC ALARM SOUNDING WENT INTO PT ROOM AND PT STATED SHE JUST GOT BACK FROM BATHROOM PT WOUND VAC WAS DISCONNECTED FROM THE SITE ASKED AND WAS ADVISED [facility] DISCONNECTED TO TAKE HER TO RESTROOM ADVISED SHOULD NEVER HAVE BEEN DISCONNECTED. CONTINUE WITH PLAN OF CARE
[2019-03-02 19:30] VITALS: BP 179/62
--- NOTE | 2019-03-02 20:00 | NUR ---
ASSESSMENT PER FLOWSHEET. IV PATENT LEFT ARM OF NS AT 50CC'S/HR SITE CLEAR. PT MORE ALERT/ORIENTED. WOUND VAC DRSG TO RT SHOULDER IN PLACE. SR UP X2 CALL LIGHT WITHIN REACH RENETTA MAT ON.ALARMS SET.
--- NOTE | 2019-03-02 21:00 | NUR ---
MEDS GIVEN PER MAY. PATIENT SET UP IN CHAIR AT BEDSIDE.
--- NOTE | 2019-03-03 | NUR ---
PT RESTING IN BED SR UP X2 CALL LIGHT WITHIN REACH.
[2019-03-03 00:30] VITALS: BP 174/67
--- NOTE | 2019-03-03 03:50 | NUR ---
EYES CLOSED RESPIRATIONS WITH EASE AND UNLABORED. DENIES PAIN OR DISCOMFORT.
[2019-03-03 05:00] VITALS: BP 161/72
[2019-03-03 05:12] LABS: BASOPHILS 0.1 % (0-2); EOSINOPHILS 2.6 % (0-7); HEMATOCRIT 21.3 % (36.0-48.0); IMMATURE GRANULOCYTES 0.5 % (0-5); MCH 28.8 pg (26.0-34.0); MCHC 33.8 g/dL (31.0-37.0); MCV 85.2 fL (80.0-100.0); MONOCYTES 15.3 % (2-11); NEUTROPHILS 70.5 % (40-80); PLATELET COUNT 189 10x3/uL (130-400); RDW 15.2 % (11.5-14.5); WBC 7.8 10x3/uL (4.8-10.8)
[2019-03-03 05:13] LABS: HEMOGLOBIN 7.2 g/dL (12-16)
[2019-03-03 05:30] LABS: ALBUMIN 2.4 g/dL (3.4-5.0); ANION GAP 9.8 mmol/L (8-16); BILIRUBIN - TOTAL 0.37 mg/dL (0.2-1.3); CALCIUM 8.1 mg/dL (8.5-10.1); CARBON DIOXIDE 25.7 mmol/L (21.0-32.0); POTASSIUM - SERUM 3.5 mmol/L (3.5-5.1); PROTEIN - SERUM 5.4 g/dL (6.4-8.2)
[2019-03-03 05:34] LABS: CREATININE - SERUM 0.8 mg/dL (0.6-1.3)
[2019-03-03 07:25] LABS: % SATURATION 5 % (15-55); IRON 12 ug/dl (35-150); TOTAL IRON BIND CAPACITY 238 ug/dl (260-445); UNSAT IRON BIND CAPACITY 226 ug/dl (150-375)
[2019-03-03 09:21] VITALS: BP 153/69
--- NOTE | 2019-03-03 10:02 | NUR ---
LYING IN BED,WITHOUT DISTRESS.CALL LIGHT IN REACH
--- NOTE | 2019-03-03 11:11 | MORECARE ---
CASE MANAGEMENT DISCHARGE SUMMARY PATIENT: SOPHIA MANNING UNIT: [id number] ADM DATE: 02/27/19 AGE: 78 : 38 SEX: F ROOM/BED: D.2225 AUTHOR: CHRISDOC PHYSICIAN: REFERRING PHYSICIAN: TEN BERMUDEZ MD DATE OF SERVICE: 03/03/19 Discharge Plan Patient Name: SOPHIA MANNING Facility: [facility]:[place] : 1940 Planned Disposition: Penitentiary Facility Anticipated Discharge Date: 03/03/19 Discharge Date: Expected LOS: 4 Initial Reviewer: [email or web address] Initial Review Date: 03/01/2019 Generated: 03/03/19 12:11 pm Comments DCP- Discharge Planning Updated by [id number]: Hollie Rivas on 03/03/19 10:[address] I met with patient concerning her Rx for Zoloft and I also called her DIL for further information. CeliaANNA, states that she believes it was her neurosurgeon in [place] that started her Zoloft about a year ago. She has not been diagnosed with depression or had any psychiatric facility placement or seen a psychiatrist. CM will continue to follow and assist with discharge planning/needs. DCP- Discharge Planning Updated by [id number]: Hollie Rivas on 03/02/19 7:[address] Spoke with Celia at [facility] about referral and clinical faxed. CM will continue to follow and assist with discharge planning/needs. DCP- Discharge Planning Updated by [id number]: Hollie Rivas on 03/01/19 2:[address] Patient Name: SOPHIA MANNING Admission Status: ER Accout number: [id number] Admission Date: 02-27-2019 : 1940 Admission Diagnosis: Attending: TEN BERMUDEZ Current LOS: 2 Anticipated DC Date: 03-03-2019 Planned Disposition: Penitentiary Facility Primary Insurance: MEDICARE A & B Discharge Planning Comments: CM met with patient to complete initial dc planning assessment, ;her son and DIL are in the room and verbal permission received to discuss discharge planning with family in the room. CM educated patient on the CM role and verbal consent given by patient to complete assessment. Patient lives at [facility]. At discharge patient plans to return and feels this is a safe discharge. CM discussed availability of home health, rehab services, and medical equipment. Patient states "I know I can't go back to [facility] until I get stronger." We discussed again inpatient rehab vs SNF and she would like to go close to her son's home and ABDIFATAH for [facility] signed. I called and left a message with Celia Farah and clinical faxed. CM will continue to follow and will assist as needed with dc plans/needs. Prepress Proofer: Hollie Rivas DCPIA - Discharge Planning Initial Assessment Updated by [id number]: Hollie Rivas on 03/01/19 3:10 pm * Is the patient Alert and Oriented? Yes * How many steps to enter\\exit or inside your home? 0/0 * PCP DR. PARISI * Pharmacy [facility] ON [address] * Preadmission Environment [facility] Apartment * Facility Name [facility] * ADLs Partial Dependent * Partial ADLs (Assistance needed) Ambulation * Equipment Cane Shower Chair Walker * List name and contact numbers for known caregivers / representatives who currently or will assist patient after discharge: Jonatan kapoor - [phone] Celia ANNA - [phone] * Verbal permission to speak to the caregivers and representatives has been obtained from the patient. Yes * Community resources currently utilized None * Additional services required to return to the preadmission environment? Yes * Can the patient safely return to the preadmission environment? Yes * Has this patient been hospitalized within the prior 30 days at any hospital? No Coverage Notice Reviewer: [id number] - Hollie Rivas Notice Issued Date-Time: 03/01/2019 15:15 Notice Type: Patient Choice Letter Notice Delivered To: Family Member Relationship to Patient: Son Epidemiology Investigator Name: Manuelito Delivery Method: HAND - Hand Delivered Ana Days: Prior Verbal Notification: Recipient Understood Notice: Yes Recipient Signature: Yes Med Rec Note Co-signed by Attending: Coverage Notice Comment: ABDIFATAH for [facility] Last DP export: 03/02/19 7:34 Patient Name: SOPHIA MANNING Page [id number] at 1111 All edits/amendments must be made on the electronic document DICTATION DATE: 03/03/19 1111 HYBRID POWERTRAIN DEVELOPMENT ENGINEER: JUAN 03/03/19 1111 RPT#: [id number] DC DATE: STATUS: ADM IN [facility] [address] [place] [address] END OF REPORT
--- NOTE | 2019-03-03 11:55 | NUR ---
PT LYING IN BED WITH FIRST UNIT OF BLOOD STILL INFUSING, FAMILY FRIENDS STOPPED IN PT SEEMS TO BE MORE ALERT TODAY, NO NEEDS VOICED, CONTINUE WITH PLAN OF CARE
[2019-03-03 17:08] LABS: BASOPHILS 0.1 % (0-2); EOSINOPHILS 1.8 % (0-7); IMMATURE GRANULOCYTES 0.3 % (0-5); LYMPHOCYTES 10.7 % (15-50); MCH 28.4 pg (26.0-34.0); MCHC 33.4 g/dL (31.0-37.0); MCV 84.9 fL (80.0-100.0); MONOCYTES 11.9 % (2-11); NEUTROPHILS 75.2 % (40-80); PLATELET COUNT 164 10x3/uL (130-400); WBC 8.8 10x3/uL (4.8-10.8)
[2019-03-03 17:09] LABS: HEMATOCRIT 33.2 % (36.0-48.0); HEMOGLOBIN 11.1 g/dL (12-16); RBC 3.91 10x6/uL (4.00-5.40)
[2019-03-03 17:28] VITALS: BP 205/88
--- NOTE | 2019-03-03 18:26 | NUR ---
ALERT AND ORIENTED, RESTING IN BED. NO C/O PAIN. NO S/S OF ACUTE DISTRESS NOTED. DENIES ANY NEEDS AT THIS TIME. CALL LIGHT IN REACH. WILL CONTINUE TO MONITOR.
[2019-03-03 19:30] VITALS: BP 152/63
--- NOTE | 2019-03-03 19:40 | NUR ---
PT SITTING UP IN BED WITHOUT DISTRESS, AOX4. IV LEFT AC INFUSING NS @ 50. RIGHT ARM IN SLING, DRESSING CDI. WOUND VAC IN PLACE. SCDS ON. PLACED ON AND OFF BEDPAN. DENIES OTHER NEEDS. CL IN REACH, WILL CTM
[2019-03-04 00:30] VITALS: BP 148/60
--- NOTE | 2019-03-04 03:49 | NUR ---
LEFT AC IV INFILTRATED. DC'D WITH CATHETER INTACT. RESITED 22G IV LEFT UPPER ARM X1 ATTEMPT
[2019-03-04 04:48] LABS: BASOPHILS 0.1 % (0-2); HEMATOCRIT 29.5 % (36.0-48.0); HEMOGLOBIN 9.9 g/dL (12-16); IMMATURE GRANULOCYTES 0.4 % (0-5); LYMPHOCYTES 15.9 % (15-50); MCHC 33.6 g/dL (31.0-37.0); MCV 83.6 fL (80.0-100.0); MEAN PLATELET VOLUME 9.7 fL (7.4-10.4); MONOCYTES 12.1 % (2-11); NEUTROPHILS 66.5 % (40-80); PLATELET COUNT 174 10x3/uL (130-400); RBC 3.53 10x6/uL (4.00-5.40); RDW 15.3 % (11.5-14.5); WBC 9.1 10x3/uL (4.8-10.8)
[2019-03-04 05:19] VITALS: BP 154/68
[2019-03-04 05:31] LABS: ALBUMIN 2.2 g/dL (3.4-5.0); ALKALINE PHOSPHATASE 50 U/L (46-116); BILIRUBIN - TOTAL 0.93 mg/dL (0.2-1.3); CALC OSMOLALITY 272 mosm/kg (275-300); CALCIUM 8.2 mg/dL (8.5-10.1); CARBON DIOXIDE 25.2 mmol/L (21.0-32.0); CHLORIDE - SERUM 103 mmol/L (98-107); CREATININE - SERUM 0.7 mg/dL (0.6-1.3); GLUCOSE 105 mg/dL (74-106); POTASSIUM - SERUM 3.2 mmol/L (3.5-5.1); PROTEIN - SERUM 5.4 g/dL (6.4-8.2); SODIUM 135 mmol/L (136-145); UREA NITROGEN 21 mg/dL (7-18); eGFR NON AFRICAN AMERICAN 85 mL/min (90-120)
[2019-03-04 05:32] LABS: ALT (SGPT) 18 U/L (10-68)
--- NOTE | 2019-03-04 07:16 | NUR ---
LYING IN BED,WITHOUT SIGNS OF DISTRESS.CALL LIGHT IN REACH
[2019-03-04] MEDS ORDERED: HYDROCODON-ACE1 EAC7 PO (07:43)
[2019-03-04] MEDS ORDERED: SMZ-TMP DS 800-1 TAB PO (07:43)
[2019-03-04 08:50] VITALS: BP 149/65
--- NOTE | 2019-03-04 10:53 | MORECARE ---
CASE MANAGEMENT DISCHARGE SUMMARY PATIENT: SOPHIA MANNING UNIT: [id number] ADM DATE: 02/27/19 AGE: 78 : 38 SEX: F ROOM/BED: D.2225 AUTHOR: CHRIS,DOC PHYSICIAN: REFERRING PHYSICIAN: TEN BERMUDEZ MD DATE OF SERVICE: 03/04/19 Discharge Plan Patient Name: SOPHIA MANNING Facility: [facility]:[place] : 1940 Planned Disposition: Snf Facility Anticipated Discharge Date: 03/03/19 Discharge Date: Expected LOS: 4 Initial Reviewer: [id number] Initial Review Date: 03/01/2019 Generated: 03/04/19 11:52 am Comments DCP- Discharge Planning Updated by [email or web address]: Hollie Rivas on 03/04/19 9:[address] Discharging today to a skilled (Medicare) bed at [facility]. Son and DIL at bedside. I informed them and leaf size picker time of 12:30 per Celia Farah at [facility]. DC orders/updated clinical faxed to [facility]. CM will continue to follow and assist with discharge planning/needs. DCP- Discharge Planning Updated by [email or web address]: Hollie Rivas on 03/03/19 10:[address] I met with patient concerning her Rx for Zoloft and I also called her DIL for further information. CeliaANNA, states that she believes it was her neurosurgeon in [place] that started her Zoloft about a year ago. She has not been diagnosed with depression or had any psychiatric facility placement or seen a psychiatrist. CM will continue to follow and assist with discharge planning/needs. DCP- Discharge Planning Updated by [email or web address]: Hollie Rivas on 03/02/19 7:[address] Spoke with Celia at [facility] about referral and clinical faxed. CM will continue to follow and assist with discharge planning/needs. DCP- Discharge Planning Updated by [id number]: Hollie Rivas on 03/01/19 2:[address] Patient Name: SOPHIA MANNING Admission Status: ER Accout number: [id number] Admission Date: 02-27-2019 : 1940 Admission Diagnosis: Attending: TEN BERMUDEZ Current LOS: 2 Anticipated DC Date: 03-03-2019 Planned Disposition: Snf Facility Primary Insurance: MEDICARE A & B Discharge Planning Comments: CM met with patient to complete initial dc planning assessment, ;her son and ANNA are in the room and verbal permission received to discuss discharge planning with family in the room. CM educated patient on the CM role and verbal consent given by patient to complete assessment. Patient lives at [facility]. At discharge patient plans to return and feels this is a safe discharge. CM discussed availability of home health, rehab services, and medical equipment. Patient states "I know I can't go back to [facility] until I get stronger." We discussed again inpatient rehab vs SNF and she would like to go close to her son's home and [facility] signed. I called and left a message with Celia Farah and clinical faxed. CM will continue to follow and will assist as needed with dc plans/needs. Radio Station Operator: Hollie Rivas DCPIA - Discharge Planning Initial Assessment Updated by [email or web address]: Hollie Rivas on 03/01/19 3:10 pm * Is the patient Alert and Oriented? Yes * How many steps to enter\\exit or inside your home? 0/0 * PCP DR. PARISI * Pharmacy [facility] * Preadmission Environment Independent [facility] * Facility Name [facility] * ADLs Partial Dependent * Partial ADLs (Assistance needed) Ambulation * Equipment Cane Shower Chair Walker * List name and contact numbers for known caregivers / representatives who currently or will assist patient after discharge: Jonatan kapoor - [phone] Celia CASTILLO - [phone] * Verbal permission to speak to the caregivers and representatives has been obtained from the patient. Yes * Community resources currently utilized None * Additional services required to return to the preadmission environment? Yes * Can the patient safely return to the preadmission environment? Yes * Has this patient been hospitalized within the prior 30 days at any hospital? No Coverage Notice Reviewer: [id number] - Hollie Rivas Notice Issued Date-Time: 03/01/2019 15:15 Notice Type: Patient Choice Letter Notice Delivered To: Family Member Relationship to Patient: Son Link Trainer Mechanic Name: Manuelito Delivery Method: HAND - Hand Delivered Ana Days: Prior Verbal Notification: Recipient Understood Notice: Yes Recipient Signature: Yes Med Rec Note Co-signed by Attending: Coverage Notice Comment: ABDIFATAH Blackmon Reviewer: [id number] Odilia Rivas Notice Issued Date-Time: 03/04/2019 9:28 Notice Type: IM Discharge Notice Notice Delivered To: Family Member Relationship to Patient: Son Link Trainer Mechanic Name: Manuelito Delivery Method: HAND - Hand Delivered Ana Days: Prior Verbal Notification: Recipient Understood Notice: Yes Recipient Signature: Yes Med Rec Note Co-signed by Attending: Coverage Notice Comment: IMM delivered, signed by her son per request, given, copy placed in MR Last DP export: 03/03/19 10:11 Patient Name: SOPHIA MANNING Page [phone] at 1053 All edits/amendments must be made on the electronic document DICTATION DATE: 03/04/19 105 LICENSED NUCLEAR OPERATOR: JUAN 03/04/19 1052 RPT#: [id number] HI DATE: STATUS: ADM IN [facility] [address] [place] [address] END OF REPORT
--- NOTE | 2019-03-04 11:32 | NUR ---
OT NOTE: BED MOB WITH MIN ASSIST FOR SUPINE TO SIT; GENTLE PROM EXS WITH R UE; PENDULUM EXS WITH ASSIST; ELBOW, WRIST, AND FINGER FLEX/EXT EXS. WOUND VAC REMAINS IN PLACE; UE DRESSING IWTH MAX ASSIST; ABLE TO WASH FACE WITH SET UP; MOD ASSIST TO MELISSA SOCKS; TRANSFERRED FROM BED TO CHAIR WITH MIN ASSIST; CHAIR ALARM ON AND CALL LIGHT IN PLACE. REQUESTED PAIN MED FOR PT FOLLOWING ROM EXS. KAYA SHIRLEY, OTR/L
--- NOTE | 2019-03-06 13:59 | MORECARE ---
CASE MANAGEMENT DISCHARGE SUMMARY PATIENT: SOPHIA MANNING UNIT: [id number] ADM DATE: 02/27/19 AGE: 78 : 38 SEX: F ROOM/BED: D.2225 AUTHOR: CHRIS,DOC PHYSICIAN: REFERRING PHYSICIAN: TEN BERMUDEZ MD DATE OF SERVICE: 03/06/19 Discharge Plan Patient Name: SOPHIA MANNING Facility: [facility]:[place] : 1940 Planned Disposition: Alf Facility Anticipated Discharge Date: 03/03/19 Discharge Date: 03/04/2019 Expected LOS: 4 Initial Reviewer: [id number] Initial Review Date: 03/01/2019 Generated: 03/06/19 2:58 pm Comments DCP- Discharge Planning Updated by [email or web address]: Hollie Rivas on 03/04/19 9:[address] Discharging today to a skilled (Medicare) bed at [facility]. Son and DIL at bedside. I informed them and picker tender time of 12:30 per Celia Farah at [facility]. DC orders/updated clinical faxed to [facility]. CM will continue to follow and assist with discharge planning/needs. DCP- Discharge Planning Updated by [id number]: Hollie Rivas on 03/03/19 10:[address] I met with patient concerning her Rx for Zoloft and I also called her DIL for further information. ANNA Yang, states that she believes it was her neurosurgeon in [place] that started her Zoloft about a year ago. She has not been diagnosed with depression or had any psychiatric facility placement or seen a psychiatrist. CM will continue to follow and assist with discharge planning/needs. DCP- Discharge Planning Updated by [id number]: Hollie Rivas on 03/02/19 7:[address] Spoke with Celia at [facility] about referral and clinical faxed. CM will continue to follow and assist with discharge planning/needs. DCP- Discharge Planning Updated by [id number]: Hollie Rivas on 03/01/19 2:[address] Patient Name: SOPHIA MANINNG Admission Status: ER Accout number: [id number] Admission Date: 02-27-2019 : 1940 Admission Diagnosis: Attending: TEN BERMUDEZ Current LOS: 2 Anticipated DC Date: 03-03-2019 Planned Disposition: Alf Facility Primary Insurance: MEDICARE A & B Discharge Planning Comments: CM met with patient to complete initial dc planning assessment, ;her son and ANNA are in the room and verbal permission received to discuss discharge planning with family in the room. CM educated patient on the CM role and verbal consent given by patient to complete assessment. Patient lives at [facility]. At discharge patient plans to return and feels this is a safe discharge. CM discussed availability of home health, rehab services, and medical equipment. Patient states "I know I can't go back to [facility] until I get stronger." We discussed again inpatient rehab vs SNF and she would like to go close to her son's home and [facility] signed. I called and left a message with Celia Farah and clinical faxed. CM will continue to follow and will assist as needed with dc plans/needs. Sanitary Plumber: Hollie Rivas DCPIA - Discharge Planning Initial Assessment Updated by [id number]: Hollie Rivas on 03/01/19 3:10 pm * Is the patient Alert and Oriented? Yes * How many steps to enter\\exit or inside your home? 0/0 * PCP DR. PARISI * Pharmacy [facility] * Preadmission Environment [facility] * Facility Name [facility] * ADLs Partial Dependent * Partial ADLs (Assistance needed) Ambulation * Equipment Cane Shower Chair Walker * List name and contact numbers for known caregivers / representatives who currently or will assist patient after discharge: Jonatan kapoor - [phone] Celia CASTILLO - [phone] * Verbal permission to speak to the caregivers and representatives has been obtained from the patient. Yes * Community resources currently utilized None * Additional services required to return to the preadmission environment? Yes * Can the patient safely return to the preadmission environment? Yes * Has this patient been hospitalized within the prior 30 days at any hospital? No Coverage Notice Reviewer: [id number] - Hollie Rivas Notice Issued Date-Time: 03/01/2019 15:15 Notice Type: Patient Choice Letter Notice Delivered To: Family Member Relationship to Patient: Son Elevator Erector Name: Manuelito Delivery Method: HAND - Hand Delivered Ana Days: Prior Verbal Notification: Recipient Understood Notice: Yes Recipient Signature: Yes Med Rec Note Co-signed by Attending: Coverage Notice Comment: ABDIFATAH Blackmon Reviewer: [id number] Odilia Rivas Notice Issued Date-Time: 03/04/2019 9:28 Notice Type: IM Discharge Notice Notice Delivered To: Family Member Relationship to Patient: Son Elevator Erector Name: Manuelito Delivery Method: HAND - Hand Delivered Ana Days: Prior Verbal Notification: Recipient Understood Notice: Yes Recipient Signature: Yes Med Rec Note Co-signed by Attending: Coverage Notice Comment: IMM delivered, signed by her son per request, given, copy placed in MR Last DP export: 03/04/19 9:53 Patient Name: SOPHIA MANNING Page [phone] at 1359 All edits/amendments must be made on the electronic document DICTATION DATE: 03/06/198 MEAT CUTTER: JUAN 03/06/19 1358 RPT#: [id number] DC DATE:03/04/19 STATUS: DIS IN [facility] [address] [place] [address] END OF REPORT
== END 2019-03-04 11:50 | DRG 493 ==
LOC: D.ER 18:33 → D.MS 20:53
PROVIDERS: Emergency Medicine; Orthopaedic Surgery; ADMIT Internal Medicine Nephrology; ATTEND Internal Medicine Nephrology
PROC: 0PSC04Z Reposition Right Humeral Head with Internal Fixation Device, Open Approach (ICD-10-PCS; principal; 2019-03-01 13:00)
DX: S42.291A Other displaced fracture of upper end of right humerus, initial encounter for closed fracture (principal); I48.20 Chronic atrial fibrillation, unspecified; D62 Acute posthemorrhagic anemia; S42.491A Other displaced fracture of lower end of right humerus, initial encounter for closed fracture; W10.1XXA Fall (on)(from) sidewalk curb, initial encounter; Y93.01 Activity, walking, marching and hiking; I11.9 Hypertensive heart disease without heart failure; Z79.01 Long term (current) use of anticoagulants; F03.90 Unspecified dementia, unspecified severity, without behavioral disturbance, psychotic disturbance, mood disturbance, and anxiety; J44.9 Chronic obstructive pulmonary disease, unspecified; N95.9 Unspecified menopausal and perimenopausal disorder; I25.2 Old myocardial infarction; Z86.73 Personal history of transient ischemic attack (TIA), and cerebral infarction without residual deficits; I51.7 Cardiomegaly; D64.9 Anemia, unspecified

== ENCOUNTER 2019-04-07 15:33 | Emergency (ER) | payer MEDICARE ==
[~2019-04-07] VITALS: Ht 157.5 cm; Wt 43.6 kg
[~2019-04-07 15:33] MED LIST changes: +SMZ-TMP DS 800-1 TAB PO
[2019-04-07 15:40] VITALS: Ht 157.5 cm; Wt 43.6 kg
[2019-04-07 16:03] LABS: BASOPHILS 0.2 % (0-2); EOSINOPHILS 2.9 % (0-7); HEMATOCRIT 35.2 % (36.0-48.0); HEMOGLOBIN 11.6 g/dL (12-16); IMMATURE GRANULOCYTES 0.3 % (0-5); LYMPHOCYTES 17.4 % (15-50); MCH 29.4 pg (26.0-34.0); MCV 89.3 fL (80.0-100.0); MEAN PLATELET VOLUME 9.2 fL (7.4-10.4); NEUTROPHILS 71.2 % (40-80); PLATELET COUNT 204 10x3/uL (130-400); RBC 3.94 10x6/uL (4.00-5.40); RDW 16.3 % (11.5-14.5); WBC 6.2 10x3/uL (4.8-10.8)
[2019-04-07 16:11] LABS: CALC OSMOLALITY 272 mosm/kg (275-300); CARBON DIOXIDE 31.2 mmol/L (21.0-32.0); CHLORIDE - SERUM 99 mmol/L (98-107); CREATININE - SERUM 0.8 mg/dL (0.6-1.3); GLUCOSE 106 mg/dL (74-106); POTASSIUM - SERUM 3.2 mmol/L (3.5-5.1); SODIUM 136 mmol/L (136-145); UREA NITROGEN 14 mg/dL (7-18); eGFR NON AFRICAN AMERICAN 73 mL/min (90-120)
[2019-04-07 16:12] LABS: APTT 23.4 SECONDS (22.8-39.4); INR 1.09 (0.85-1.17); PROTIME 14.1 SECONDS (11.6-15.0)
[2019-04-07 16:29] LABS: ALBUMIN 3.5 g/dL (3.4-5.0); ALKALINE PHOSPHATASE 109 U/L (46-116); ALT (SGPT) 23 U/L (10-68); BILIRUBIN - TOTAL 0.49 mg/dL (0.2-1.3); CKMB 1.8 U/L (0.0-3.6); CREATINE KINASE 60 UL (21-215); MAGNESIUM - SERUM 1.8 mg/dL (1.8-2.4); PROTEIN - SERUM 7.1 g/dL (6.4-8.2)
[2019-04-07 16:36] LABS: TROPONIN-I < 0.017 ng/mL (0.000-0.060)
[2019-04-07] MEDS ORDERED: ZOFRAN ODT4 MG/UDTAB PO (18:37)
[2019-04-07 19:26] VITALS: BP 108/74
== END 2019-04-07 19:27 | disposition home or self-care (01) ==
LOC: D.ER 15:33
PROVIDERS: Emergency Medicine
DX: I10 Essential (primary) hypertension (principal); D64.9 Anemia, unspecified; E87.6 Hypokalemia; R11.2 Nausea with vomiting, unspecified; I25.2 Old myocardial infarction; I48.91 Unspecified atrial fibrillation

== ENCOUNTER 2019-04-21 14:00 | Emergency (ER) | payer MEDICARE ==
[~2019-04-21] VITALS: Ht 157.5 cm; Wt 43.6 kg
[~2019-04-21 14:00] MED LIST changes: +ZOFRAN ODT4 MG/UDTAB PO
[2019-04-21 14:03] VITALS: Ht 157.5 cm; Wt 43.6 kg
[2019-04-21] MEDS ORDERED: HYDROCHLOROTH12.5 M1 PO (14:09)
[2019-04-21] MEDS ORDERED: BAYER CHEWABLE81 MG PO (14:09)
[2019-04-21] MEDS ORDERED: ARICEPT23 MG PO (14:09)
[2019-04-21] MEDS ORDERED: K-TAB10 MEQ PO (14:10)
[2019-04-21] MEDS ORDERED: AVAPRO150 MG PO (14:10)
[2019-04-21] MEDS ORDERED: NORVASC5 MG PO (14:10)
[2019-04-21 14:39] LABS: APPEARANCE CLEAR (CLEAR); BILIRUBIN NEGATIVE (NEGATIVE); COLOR STRAW (YELLOW); GLUCOSE NEGATIVE (NEGATIVE); KETONE NEGATIVE (NEGATIVE); NITRITE NEGATIVE (NEGATIVE); PROTEIN NEGATIVE (NEGATIVE); SPECIFIC GRAVITY 1.005 (1.005-1.020); UROBILINOGEN NORMAL (NORMAL)
[2019-04-21 14:48] LABS: UDS - AMPHET NEGATIVE QUAL (NEGATIVE); UDS - BARB NEGATIVE QUAL (NEGATIVE); UDS - BENZO NEGATIVE QUAL (NEGATIVE); UDS - COCAINE NEGATIVE QUAL (NEGATIVE); UDS - OPIATE NEGATIVE QUAL (NEGATIVE); UDS - PCP NEGATIVE QUAL (NEGATIVE); UDS - THC NEGATIVE QUAL (NEGATIVE)
[2019-04-21 14:54] LABS: BASOPHILS 0.3 % (0-2); EOSINOPHILS 3.6 % (0-7); HEMATOCRIT 36.6 % (36.0-48.0); HEMOGLOBIN 12.4 g/dL (12-16); IMMATURE GRANULOCYTES 0.3 % (0-5); LYMPHOCYTES 21.9 % (15-50); MCH 30.2 pg (26.0-34.0); MCHC 33.9 g/dL (31.0-37.0); MCV 89.1 fL (80.0-100.0); MEAN PLATELET VOLUME 9.3 fL (7.4-10.4); MONOCYTES 9.6 % (2-11); NEUTROPHILS 64.3 % (40-80); PLATELET COUNT 212 10x3/uL (130-400); RBC 4.11 10x6/uL (4.00-5.40); RDW 16.2 % (11.5-14.5); WBC 6.7 10x3/uL (4.8-10.8)
[2019-04-21 15:12] LABS: CALC OSMOLALITY 275 mosm/kg (275-300); CALCIUM 9.5 mg/dL (8.5-10.1); CARBON DIOXIDE 30.8 mmol/L (21.0-32.0); CHLORIDE - SERUM 100 mmol/L (98-107); CREATININE - SERUM 0.9 mg/dL (0.6-1.3); GLUCOSE 105 mg/dL (74-106); POTASSIUM - SERUM 3.4 mmol/L (3.5-5.1); SODIUM 137 mmol/L (136-145); UREA NITROGEN 17 mg/dL (7-18); eGFR NON AFRICAN AMERICAN 64 mL/min (90-120)
[2019-04-21 15:22] LABS: T4 THYROXINE 7.5 ug/dL (4.7-13.3)
[2019-04-21 15:27] LABS: INR 1.05 (0.85-1.17); PROTIME 13.6 SECONDS (11.6-15.0)
[2019-04-21 15:28] LABS: ALBUMIN 3.6 g/dL (3.4-5.0); ALKALINE PHOSPHATASE 96 U/L (30-120); ALT (SGPT) 20 U/L (10-68); BILIRUBIN - TOTAL 0.53 mg/dL (0.2-1.3); CKMB 2.2 U/L (0.0-3.6); CREATINE KINASE 118 UL (21-215); MAGNESIUM - SERUM 1.9 mg/dL (1.8-2.4); PROTEIN - SERUM 7.7 g/dL (6.4-8.2); THYROID STIMULATING HORMONE 1.58 uIU/mL (0.36-3.74); TROPONIN-I < 0.017 ng/mL (0.000-0.060)
[2019-04-21 18:25] VITALS: BP 165/28
== END 2019-04-21 18:25 | disposition home or self-care (01) ==
LOC: D.ER 14:00
PROVIDERS: Family Medicine
DX: F32.9 Major depressive disorder, single episode, unspecified (principal); F03.90 Unspecified dementia, unspecified severity, without behavioral disturbance, psychotic disturbance, mood disturbance, and anxiety; I10 Essential (primary) hypertension; E78.5 Hyperlipidemia, unspecified; I48.91 Unspecified atrial fibrillation

== ENCOUNTER 2020-01-05 15:15 | Inpatient (IN) | payer MEDICARE ==
[~2020-01-05] VITALS: Ht 157.5 cm; Wt 46.3 kg
[~2020-01-05 15:15] MED LIST changes: +AVAPRO150 MG PO; +HYDROCHLOROTH12.5 M1 PO; +K-TAB10 MEQ PO; +NORVASC5 MG PO
[2020-01-05 16:03] LABS: BASOPHILS 0.2 % (0-2); EOSINOPHILS 1.5 % (0-7); HEMATOCRIT 39.6 % (36.0-48.0); HEMOGLOBIN 13.5 g/dL (12-16); IMMATURE GRANULOCYTES 0.1 % (0-5); LYMPHOCYTES 16.6 % (15-50); MCH 30.6 pg (26.0-34.0); MCHC 34.1 g/dL (31.0-37.0); MCV 89.8 fL (80.0-100.0); MEAN PLATELET VOLUME 9.5 fL (7.4-10.4); MONOCYTES 5.8 % (2-11); NEUTROPHILS 75.8 % (40-80); PLATELET COUNT 214 10x3/uL (130-400); RBC 4.41 10x6/uL (4.00-5.40); WBC 8.1 10x3/uL (4.8-10.8)
[2020-01-05 16:16] LABS: ANION GAP 11.4 mmol/L (8-16); CALCIUM 9.6 mg/dL (8.5-10.1); CREATININE - SERUM 1.3 mg/dL (0.6-1.3); KETONE NEGATIVE (NEGATIVE); NITRITE NEGATIVE (NEGATIVE); POTASSIUM - SERUM 3.4 mmol/L (3.5-5.1)
[2020-01-05 16:17] LABS: BACTERIA MODERATE HPF (NONE SEEN); BILIRUBIN NEGATIVE (NEGATIVE); UROBILINOGEN NORMAL mg/dL (< 2); WHITE CELLS - URINE 0-5 HPF (0-4)
[2020-01-05 16:22] LABS: ALBUMIN 4.1 g/dL (3.4-5.0); BILIRUBIN - TOTAL 0.43 mg/dL (0.2-1.3); PROTEIN - SERUM 8.4 g/dL (6.4-8.2)
[2020-01-05 17:58] VITALS: BP 147/108
[2020-01-05 18:30] LABS: MAGNESIUM - SERUM 2.1 mg/dL (1.8-2.4); TROPONIN-I 0.025 ng/mL (0.000-0.060)
[2020-01-05 22:08] VITALS: BP 167/77
--- NOTE | 2020-01-05 23:16 | NUR ---
REPORT GIVEN TO REYNALDO HUANG
--- NOTE | 2020-01-05 23:17 | NUR ---
NS INFUSING AT 75 ML/H AND POTASSIUM INFUSING AT 75 ML/H UPON SHIFT CHANGE
[2020-01-05 23:51] VITALS: BP 126/67
[2020-01-06] VITALS (7 sets, daily range): BP systolic 117–152; BP diastolic 50–61; Ht 157.5 cm; Wt 46.3 kg
--- NOTE | 2020-01-06 | NUR ---
ATTEMPTED TO CALL REPORT. NURSE NEGRA RN WITH OTHER PT AT THIS TIME. SHE WILL CALL FOR REPORT WHEN AVAILABLE.
--- NOTE | 2020-01-06 00:11 | NUR ---
REPORT TO REYNALDO OMER AT THIS TIME. WILL TRANSPORT WHEN POSSIBLE.
--- NOTE | 2020-01-06 01:30 | NUR ---
PT BROUGHT TO FLOOR VIA WC, AMBULATED WITH ASSIST AND CANE TO BATHROOM AND TO BED. CHANGED INTO YELLOW GOWN. YELLOW BAND AND NON SLIP SOCKS ON. RENETTA ON. EDUCATED PT ON NEED TO CALL FOR ASSIST WHEN AMBULATING. VERBALIZED UNDERSTANDING. GAVE INCENTIVE SPIROMETER AND EDUCATED ON USE. SCDS PLACED BILAT AND EDUCATED ON USE. PT VERBALIZED UNDERSTANDING. IV RIGHT FA INFUSING NS @ 75 AND NS W/ 20K @ 75 AT THIS TIME. PROVIDED WATER. DENIES OTHER NEEDS. CL IN REACH, WILL CTM
[2020-01-06 05:17] LABS: BASOPHILS 0.2 % (0-2); EOSINOPHILS 1.1 % (0-7); HEMATOCRIT 35.7 % (36.0-48.0); HEMOGLOBIN 11.8 g/dL (12-16); IMMATURE GRANULOCYTES 0.2 % (0-5); LYMPHOCYTES 18.5 % (15-50); MCH 29.5 pg (26.0-34.0); MCHC 33.1 g/dL (31.0-37.0); MCV 89.3 fL (80.0-100.0); MEAN PLATELET VOLUME 9.8 fL (7.4-10.4); MONOCYTES 6.3 % (2-11); NEUTROPHILS 73.7 % (40-80); PLATELET COUNT 220 10x3/uL (130-400); RDW 13.9 % (11.5-14.5); WBC 6.5 10x3/uL (4.8-10.8)
[2020-01-06 05:34] LABS: CHOL - HDL RATIO 2.6 ratio (2.3-4.1); LDL-HDL RATIO 1.5 ratio (1.5-3.5); PHOSPHOROUS 2.8 mg/dL (2.5-4.9)
[2020-01-06 05:43] LABS: TROPONIN-I 0.016 ng/mL (0.000-0.060)
[2020-01-06 10:00] LABS: ALBUMIN 3.3 g/dL (3.4-5.0); ANION GAP 16.1 mmol/L (8-16); BILIRUBIN - TOTAL 0.42 mg/dL (0.2-1.3); CALCIUM 8.8 mg/dL (8.5-10.1); PROTEIN - SERUM 6.7 g/dL (6.4-8.2)
[2020-01-06 10:14] LABS: CREATININE - SERUM 0.9 mg/dL (0.6-1.3)
[2020-01-06 10:15] LABS: POTASSIUM - SERUM 4.1 mmol/L (3.5-5.1)
--- NOTE | 2020-01-06 21:15 | NUR ---
PT LYING IN BED. PT AAO X 3 BUT OCCASIONAL CONFUSION NOTED. PT DENIES PAIN. IV TO RIGHT FOREARM AT NS @ 75 ML/HR. NURSE WILL CONTINUE TO MONITOR.
[2020-01-07 00:55] VITALS: BP 165/75
[2020-01-07 04:15] VITALS: BP 172/72
--- NOTE | 2020-01-07 04:58 | NUR ---
RESTARTED IV FLUIDS. PATIENT COMPLAINT WITH IVF AT THIS TIME. CPOC.
[2020-01-07 07:00] VITALS: BP 150/73
--- NOTE | 2020-01-07 08:00 | NUR ---
ALERT AND ORIENTED TO SELF AND SURROUNDINGS. PATINET AMBUATES WITH ASSSIT AND ENCOURAGED TO USE CALL LIGHT FOR ASSSIT. FALL PRECAUTIONS IN PLACE. LUNGS CTA AND HRRR.
[2020-01-07 08:40] LABS: BASOPHILS 0.3 % (0-2); EOSINOPHILS 2.4 % (0-7); HEMATOCRIT 35.7 % (36.0-48.0); HEMOGLOBIN 12.1 g/dL (12-16); IMMATURE GRANULOCYTES 0.1 % (0-5); LYMPHOCYTES 14.9 % (15-50); MCH 30.2 pg (26.0-34.0); MCHC 33.9 g/dL (31.0-37.0); MEAN PLATELET VOLUME 9.9 fL (7.4-10.4); MONOCYTES 10.5 % (2-11); NEUTROPHILS 71.8 % (40-80); PLATELET COUNT 200 10x3/uL (130-400); RBC 4.01 10x6/uL (4.00-5.40); RDW 14.2 % (11.5-14.5); WBC 7.6 10x3/uL (4.8-10.8)
[2020-01-07 08:56] LABS: ANION GAP 11.4 mmol/L (8-16); CARBON DIOXIDE 25.6 mmol/L (21.0-32.0); MAGNESIUM - SERUM 1.8 mg/dL (1.8-2.4); PHOSPHOROUS 2.1 mg/dL (2.5-4.9)
[2020-01-07 11:00] VITALS: BP 127/57
[2020-01-07 15:00] VITALS: BP 133/58
--- NOTE | 2020-01-07 19:00 | NUR ---
PATIENT ATTEMPTING TO GET OUT OF BED. RENETTA ALARMING. ASSISTED PATIENT BACK TO BED. PATIENT UNSCREWED IV FROM ARM. INSTRUCTED AND EDUCATED PATIENT NOT TO DO THIS. PATIENT STATES SHE DOES NOT WANT IV FLUIDS AT THIS TIME. PATIENT NOT IRRTABLE, BUT STATES SHE "WANTS A BREAK". ASSESSMENT PERFORMED. FALL PRECAUTIONS IN PLACE. CALL LIGHT CLOSE. CPOC.
[2020-01-07 20:47] VITALS: BP 131/83
[2020-01-08 00:58] VITALS: BP 153/66
[2020-01-08 05:32] VITALS: BP 145/58
[2020-01-08 07:10] LABS: BASOPHILS 0.2 % (0-2); EOSINOPHILS 3.7 % (0-7); HEMOGLOBIN 11.2 g/dL (12-16); IMMATURE GRANULOCYTES 0.1 % (0-5); LYMPHOCYTES 16.1 % (15-50); MCH 30.2 pg (26.0-34.0); MCHC 33.9 g/dL (31.0-37.0); MCV 88.9 fL (80.0-100.0); MONOCYTES 12.4 % (2-11); NEUTROPHILS 67.5 % (40-80); PLATELET COUNT 185 10x3/uL (130-400); RBC 3.71 10x6/uL (4.00-5.40); RDW 14.4 % (11.5-14.5); WBC 8.4 10x3/uL (4.8-10.8)
[2020-01-08 07:52] LABS: CALCIUM 8.6 mg/dL (8.5-10.1); CARBON DIOXIDE 23.2 mmol/L (21.0-32.0); CREATININE - SERUM 0.9 mg/dL (0.6-1.3); POTASSIUM - SERUM 4.2 mmol/L (3.5-5.1)
[2020-01-08 07:58] LABS: PHOSPHOROUS 2.7 mg/dL (2.5-4.9)
[2020-01-08 09:37] VITALS: BP 132/57
[2020-01-08] MEDS ORDERED: Levaquin PO (10:43)
[2020-01-08] MEDS ORDERED: BACTRIM DS TAB1 EAC1 PO (10:43)
[2020-01-08] MEDS ORDERED: FLORAJEN3 CAPS460 MG PO (10:43)
--- NOTE | 2020-01-08 13:27 | NUR ---
IV DISCONTINUED AND VERBALIZED UNDERSTANDING OF DISCHARGE INSTRUCTIONS. STABLE AT TIME OF DISCHARGE UNDER CARE OF FAMILY.
--- NOTE | 2020-01-08 19:13 | MORECARE ---
CASE MANAGEMENT DISCHARGE SUMMARY PATIENT: SOPHIA MANNING UNIT: [id number] ADM DATE: 01/05/20 AGE: 79 : 38 SEX: F ROOM/BED: D.2212 AUTHOR: BISHNU PEREZ PHYSICIAN: REFERRING PHYSICIAN: MARY KAY RAHMAN MD DATE OF SERVICE: 01/08/20 Discharge Plan Patient Name: SOPHIA MANNING Facility: [facility]:[place] : 1940 Planned Disposition: Home with Home Health Anticipated Discharge Date: 01/08/20 Discharge Date: 01/08/2020 Expected LOS: 3 Initial Reviewer: [id number] Initial Review Date: 01/08/2020 Generated: 01/08/20 8:13 pm External Providers External Provider: [facility] Next Contact Date: Service Request Date: Service Type: Resolution: Reviewer: Comments: Coverage Notice Reviewer: [id number] - [place] Notice Issued Date-Time: 01/08/2020 11:03 Notice Type: IM Discharge Notice Notice Delivered To: Patient Relationship to Patient: Self Bank Sales And Service Manager Name: Delivery Method: HAND - Hand Delivered Ana Days: Prior Verbal Notification: Recipient Understood Notice: Yes Recipient Signature: Yes Med Rec Note Co-signed by Attending: Coverage Notice Comment: DC IMM delivered, explained, signed by the patient, and placed in chart. Signed form also left with the patient. Patient Name: SOPHIA MANNING Page [phone] at 1913 All edits/amendments must be made on the electronic document DICTATION DATE: 01/08/201912 CATARACT LENS GENERATOR: JUAN 01/08/201912 RPT#: [id number] DC DATE:01/08/20 STATUS: DIS IN [facility] [address] [place] [address] END OF REPORT
--- NOTE | 2020-01-08 19:20 | MORECARE ---
CASE MANAGEMENT DISCHARGE SUMMARY PATIENT: SOPHIA MANNING UNIT: [id number] ADM DATE: 01/05/20 AGE: 79 : 38 SEX: F ROOM/BED: D.2212 AUTHOR: CHRIS,DOC PHYSICIAN: REFERRING PHYSICIAN: MARY KAY RAHMAN MD DATE OF SERVICE: 01/08/20 Discharge Plan Patient Name: SOPHIA MANNING Facility: [facility]:[place] : 1940 Planned Disposition: Home with Home Health Anticipated Discharge Date: 01/08/20 Discharge Date: 01/08/2020 Expected LOS: 3 Initial Reviewer: [id number] Initial Review Date: 01/08/2020 Generated: 01/08/20 8:19 pm DCPIA - Discharge Planning Initial Assessment Updated by [id number]: [place] on 01/08/20 7:15 pm * Is the patient Alert and Oriented? Yes * How many steps to enter\exit or inside your home? 0/0 * PCP Angel Jensen MD * Pharmacy [facility] * Preadmission Environment Home Alone * ADLs Independent * Equipment Cane Walker * Other Equipment n/a * List name and contact numbers for known caregivers / representatives who currently or will assist patient after discharge: Gaetano Doty (Friend) [phone] * Verbal permission to speak to the caregivers and representatives has been obtained from the patient. No * Community resources currently utilized None * Please name any agencies selected above. none * Additional services required to return to the preadmission environment? Yes * Can the patient safely return to the preadmission environment? Yes * Has this patient been hospitalized within the prior 30 days at any hospital? No Coverage Notice Reviewer: [id number] - [place] Notice Issued Date-Time: 01/08/2020 11:03 Notice Type: IM Discharge Notice Notice Delivered To: Patient Relationship to Patient: Self Communications Manager Name: Delivery Method: HAND - Hand Delivered Ana Days: Prior Verbal Notification: Recipient Understood Notice: Yes Recipient Signature: Yes Med Rec Note Co-signed by Attending: Coverage Notice Comment: DC IMM delivered, explained, signed by the patient, and placed in chart. Signed form also left with the patient. Last DP export: 01/08/20 6:13 Patient Name: SOPHIA MANNING Page [phone] at 1920 All edits/amendments must be made on the electronic document DICTATION DATE: 01/08/201919 TOP LIFT NAILER: JUAN 01/08/201919 RPT#: [id number] DC DATE:01/08/20 STATUS: DIS IN [facility] [address] [place] [address] END OF REPORT
--- NOTE | 2020-01-08 19:33 | MORECARE ---
CASE MANAGEMENT DISCHARGE SUMMARY PATIENT: SOPHIA MANNING UNIT: [id number] ADM DATE: 01/05/20 AGE: 79 : 38 SEX: F ROOM/BED: D.2212 AUTHOR: CHRIS,DOC PHYSICIAN: REFERRING PHYSICIAN: MARY KAY RAHMAN MD DATE OF SERVICE: 01/08/20 Discharge Plan Patient Name: SOPHIA MANNING Facility: [facility]:[place] : 1940 Planned Disposition: Home with Home Health Anticipated Discharge Date: 01/08/20 Discharge Date: 01/08/2020 Expected LOS: 3 Initial Reviewer: [id number] Initial Review Date: 01/08/2020 Generated: 01/08/20 8:32 pm Comments DCP- Discharge Planning Updated by [email or web address]: Ta Oro on 01/08/20 6:[address] Patient Name: SOPHIA MANNING Admission Status: ER Accout number: [id number] Admission Date: 01-05-2020 : 1940 Admission Diagnosis:HYPO-OSMOLALITY AND HYPONATREMIA Attending: MARY KAY RAHMAN Current LOS: 3 Anticipated DC Date: 01-08-2020 Planned Disposition: Home with Home Health Primary Insurance: MEDICARE A & B Discharge Planning Comments: CM met with patient for DC planning. Patient is in agreement with DC Plan. Patient lives home alone. Patient has 0 steps to enter her home and she feels it is safe. PCP: Dr. Angel Jensen. Pharmacy: [facility]. DME: dolly del castillo. Emergency contact: Gaetano Doty (Friend) [phone]. CM discussed HHS, OP Therapy, SNF, Rehab. Patient states she would like to continue HHS with [facility]. Clinicals faxed to [facility]. Patient voices no other needs at this time. CM will follow and assist PRN. Card Tape Converter Operator: [place] DCPIA - Discharge Planning Initial Assessment Updated by [email or web address]: [place] on 01/08/20 7:15 pm * Is the patient Alert and Oriented? Yes * How many steps to enter\exit or inside your home? 0/0 * PCP Angel Jensen MD * Pharmacy [facility] * Preadmission Environment Home Alone * ADLs Independent * Equipment Cane Walker * Other Equipment n/a * List name and contact numbers for known caregivers / representatives who currently or will assist patient after discharge: Gaetano Doty (Friend) [phone] * Verbal permission to speak to the caregivers and representatives has been obtained from the patient. No * Community resources currently utilized None * Please name any agencies selected above. none * Additional services required to return to the preadmission environment? Yes * Can the patient safely return to the preadmission environment? Yes * Has this patient been hospitalized within the prior 30 days at any hospital? No Coverage Notice Reviewer: [id number] Odilia Oro Notice Issued Date-Time: 01/08/2020 11:03 Notice Type: IM Discharge Notice Notice Delivered To: Patient Relationship to Patient: Self Kindergarten Teacher Name: Delivery Method: HAND - Hand Delivered Ana Days: Prior Verbal Notification: Recipient Understood Notice: Yes Recipient Signature: Yes Med Rec Note Co-signed by Attending: Coverage Notice Comment: DC IMM delivered, explained, signed by the patient, and placed in chart. Signed form also left with the patient. Last DP export: 01/08/20 6:20 Patient Name: SOPHIA MANNING Page 21523 at 1933 All edits/amendments must be made on the electronic document DICTATION DATE: 01/08/201932 ROD MILL OPERATOR: JUAN 01/08/201932 RPT#: [id number] DC DATE:01/08/20 STATUS: DIS IN [facility] [address] [place] [address] END OF REPORT
--- NOTE | 2020-01-09 09:32 | MORECARE ---
CASE MANAGEMENT DISCHARGE SUMMARY PATIENT: SOPHIA MANNING UNIT: [id number] ADM DATE: 01/05/20 AGE: 79 : 38 SEX: F ROOM/BED: D.2212 AUTHOR: CHRIS,DOC PHYSICIAN: REFERRING PHYSICIAN: MARY KAY RAHMAN MD DATE OF SERVICE: 01/09/20 Discharge Plan Patient Name: SOPHIA MANNING Facility: [facility]:[place] : 1940 Planned Disposition: Home with Home Health Anticipated Discharge Date: 01/08/20 Discharge Date: 01/08/2020 Expected LOS: 3 Initial Reviewer: [email or web address] Initial Review Date: 01/08/2020 Generated: 01/09/20 10:31 am Comments DCP- Discharge Planning Updated by [email or web address]: aT Oro on 01/08/20 6:[address] Patient Name: SOPHIA MANNING Admission Status: ER Accout number: [id number] Admission Date: 01-05-2020 : 1940 Admission Diagnosis:HYPO-OSMOLALITY AND HYPONATREMIA Attending: MARY KAY RAHMAN Current LOS: 3 Anticipated DC Date: 01-08-2020 Planned Disposition: Home with Home Health Primary Insurance: MEDICARE A & B Discharge Planning Comments: CM met with patient for DC planning. Patient is in agreement with DC Plan. Patient lives home alone. Patient has 0 steps to enter her home and she feels it is safe. PCP: Dr. Angel Jensen. Pharmacy: [email or web address]. DME: [facility]. Emergency contact: Gaetano Doty (Friend) [phone]. CM discussed HHS, OP Therapy, SNF, Rehab. Patient states she would like to continue HHS with [facility]. Clinicals faxed to [facility]. Patient voices no other needs at this time. CM will follow and assist PRN. Assembler Deck And Hull: Ta Oro DCPIA - Discharge Planning Initial Assessment Updated by [email or web address]: Ta Oro on 01/08/20 7:15 pm * Is the patient Alert and Oriented? Yes * How many steps to enter\exit or inside your home? 0/0 * PCP Angel Jensen MD * Pharmacy [facility] [place] * Preadmission Environment Home Alone * ADLs Independent * Equipment Cane Walker * Other Equipment n/a * List name and contact numbers for known caregivers / representatives who currently or will assist patient after discharge: Gaetano Doty (Friend) [phone] * Verbal permission to speak to the caregivers and representatives has been obtained from the patient. No * Community resources currently utilized None * Please name any agencies selected above. none * Additional services required to return to the preadmission environment? Yes * Can the patient safely return to the preadmission environment? Yes * Has this patient been hospitalized within the prior 30 days at any hospital? No Coverage Notice Reviewer: [email or web address] Odilia Oro Notice Issued Date-Time: 01/08/2020 11:03 Notice Type: IM Discharge Notice Notice Delivered To: Patient Relationship to Patient: Self Appliance Repair Technician Name: Delivery Method: HAND - Hand Delivered Ana Days: Prior Verbal Notification: Recipient Understood Notice: Yes Recipient Signature: Yes Med Rec Note Co-signed by Attending: Coverage Notice Comment: DC IMM delivered, explained, signed by the patient, and placed in chart. Signed form also left with the patient. Last DP export: 01/08/20 6:33 Patient Name: SOPHIA MANNING Page [id number] at 0932 All edits/amendments must be made on the electronic document DICTATION DATE: 01/09/20930 TILE MACHINE OPERATOR: JUAN 01/09/20930 RPT#: [id number] DC DATE:01/08/20 STATUS: DIS IN [facility] [address] [place] [address] END OF REPORT
--- NOTE | 2020-01-10 15:52 | EC ---
PATIENT:SOPHIA MANNING DATE OF SERVICE: 01/05/20 SEX: F MEDICAL RECORD: [id number] DATE OF : 36 LOCATION:[facility] AGE OF PATIENT: 79 ADMISSION DATE: 01/05/20 REFERRING PHYSICIAN: INTERPRETING PHYSICIAN: MEHRDAD CHASE MD ECHOCARDIOGRAM REPORT ECHO CHARGES 4 ECHO COMPLETE Date: 01/06/20 CLINICAL DIAGNOSIS: PRE-SYNCOPE, DIZZYNESS, WEAKNESS, HX: A-FIB ECHOCARDIOGRAPHIC MEASUREMENTS (adult normal given) AC root (d.<3.7cm) 3.0 cm LV Septum d (<1.2 cm> 1.1 cm Valve Excursion 1.4 cm LV Septum (systole) 2.0 cm Left Atria (s.<4.0cm> 4.1 cm LVPW d(<1.2cm) 1.2 cm RV (d.<2.3cm) 3.4 cm LVPW (sytole) 1.4 cm LV diastole(<5.6CM) 4.2 cm MV E-F(>70mm/sec) cm LV systole 1.8 cm LVOT Diameter 1.7 cm MV exc.(>10mm) cm Est.ejection fraction (50-75%) % DOPPLER: LVIT cm/sec A 93 cm/sec E 129 cm/sec LA cm/sec RVSP 48 mmHg LVOT 106 cm/sec AOP1/2T m/s Asc. Ao 235 cm/sec RVOT 51 cm/sec RA cm/sec PA cm/sec AV Gradient Peak 22 mmHg AV Mean 10 mmHg AV Area cm MV Gradient Peak 7 mmHg MV Mean 2 mmHg MV Area cm COMMENTS: Conduit Reamer Operator: Chayo POTTS Legal Service Specialist: 3 Dr. Dozier TAPE# Pericardial Effusion N DATE OF SERVICE: Adequate 2D, color flow imaging, spectral Doppler, and M-Mode. No LVH. LV internal dimensions are normal. Wall motion is normal. EF is greater than or equal to 55%. Aortic valve is tricuspid. No evidence of stenosis by Doppler interrogation. Left atrium is mildly dilated at 4.1 cm. Mitral valve shows no prolapse. Mild MR. Right-sided chambers are grossly normal. Trace TR. ECHOCARDIOGRAM REPORT [id number] SOPHIA MANNING TRANSINT:[id number] Voice Confirmation ID: [id number] DOCUMENT ID: [id number] MEHRDAD CHASE MD at 1552 CC: [id number] DICTATION DATE: 01/09/20924 LAND SURVEYING SURVEY WORKER: 01/09/20 1522 DIS IN 01/08/20 [facility] [address] [place] [address]
== END 2020-01-08 13:29 | disposition home health service (06) | DRG 690 ==
LOC: D.ER 15:15 → D.EDHOLD 18:18 → D.MS 18:18
PROVIDERS: Emergency Medicine; ADMIT Emergency Medicine; ATTEND Emergency Medicine
DX: N39.0 Urinary tract infection, site not specified (principal); E87.1 Hypo-osmolality and hyponatremia; I10 Essential (primary) hypertension; E87.6 Hypokalemia; E78.5 Hyperlipidemia, unspecified; I25.10 Atherosclerotic heart disease of native coronary artery without angina pectoris; I48.91 Unspecified atrial fibrillation; F41.8 Other specified anxiety disorders